=== PATIENT | female | born 1955 | race Caucasian/White ===

== ENCOUNTER 2016-04-07 01:46 | Inpatient (IN) | payer OTHER ==
[~2016-04-07] VITALS: Ht 161.3 cm; Wt 60.2 kg
[~2016-04-07 01:46] MED LIST: ALPR1 PO; AMBI12.5 PO; AMLO2.5T PO; CENTTAB9 PO; ERGO2000 PO; KETO10 PO; LEVO88TA2 PO; SARA10TA; VITA500C PO
[2016-04-07 01:51] VITALS: BP 190/92; PULSE 88; RESP 16; TEMP 98.4; O2SAT 99
--- NOTE | 2016-04-07 02:56 | PD ---
HPI Chief Complaint: Fall Time Seen by Provider: 02:05 Travel History International Travel<30 days: No Contact w/Intl Traveler<30days: No Traveled to known affect area: No History of Present Illness HPI The patient is a 61-year-old female who presents to the emergency department for multiple complaints. The patient states she has a long-standing history of alcohol abuse that was followed by prescription abuse. The patient states she has a history of psychiatric disorders and was on psychiatric medications after she stopped drinking alcohol. The patient then stop taking her psychiatric medications, because she was having severe abdominal pain. The patient states she underwent 6 surgeries within a years time for her abdominal pain, however, continue to have the abdominal pain. The patient states that when she stopped her psychiatric medications, her pain improved. However, the patient states she "lost her mind ", after she stopped taking her psychiatric medications. The patient denies any outright suicidal or homicidal ideation. The patient states she was having a panic attack earlier tonight when she fell the bathroom injuring her right ankle and the right aspect of her head. The patient states there was a loss of consciousness and she saw "stars ". The patient does note a previous history of fracture to the right ankle. PFSH Past Medical History Anxiety: Yes Depression: Yes Heart Rhythm Problems: No Cancer: No Cardiovascular Problems: No High Cholesterol: No Chest Pain: No Congestive Heart Failure: No Diabetes: No Diminished Hearing: No Endocrine: Yes Gastrointestinal Disorders: Yes (MULTIPLE SURGERIES FOR RUPTURED APPY/REPAIR/ PERITONITIS/WOUND VAC) GERD: Yes Genitourinary: No Hepatitis: No Hiatal Hernia: Yes Hypertension: Yes Immune Disorder: No Musculoskeletal: No Neurologic: No Psychiatric: Yes (ANXIETY,DEPRESSION/INSOMNIA) Reproductive: No Respiratory: Yes (ASTHMA-EXERCISE INDUCED) Immunizations Current: Yes Thyroid Disease: Yes (HYPOTHYROIDISM) Ulcer: No Menopausal: Yes : 2 Para: 2 Miscarriage: 0 : 0 Past Surgical History Abdominal Surgery: Yes (ILEOSTOMY/MULTI ABD SURGERIES/WOUND VAC/ROCIO) AICD: No Appendectomy: Yes (with ileostomy for 6 mths trachea 6 mths) Cardiac Surgery: No Cholecystectomy: Yes Ear Surgery: No Endocrine Surgery: No Eye Surgery: No Genitourinary Surgery: No Gynecologic Surgery: No Joint Replacement: No Oral Surgery: Yes (TRACHEOSTOMY) Pacemaker: No Thoracic Surgery: No Other Surgery: Yes Social History Alcohol Use: No Tobacco Use: No Substance Use: No Allergies-Medications (Allergen,Severity, Reaction): Coded Allergies: Ciprofloxacin (Verified Allergy, Severe, FABIENNE'S SYNDROME, 04/07/16) Contrast Media (Verified Allergy, Severe, FABIENNE'S SYNDROME, 04/07/16) Iodine (Verified Allergy, Severe, FABIENNE'S SYNDROME, 04/07/16) Neomycin (Verified Allergy, Severe, FABIENNE'S SYNDROME, 04/07/16) Penicillin (Verified Allergy, Severe, FABIENNE'S SYNDROME, 04/07/16) Sucralfate (Verified Allergy, Severe, Rash, 04/07/16) Vancomycin (Verified Allergy, Severe, FABIENNE'S SYNDROME, 04/07/16) Zofran (Verified Allergy, Severe, HIVES, 04/07/16) Carafate (Verified Allergy, Unknown, 04/07/16) Reported Meds & Prescriptions Reported Meds & Active Scripts Active Reported Ambien CR (Zolpidem Tartrate) 12.5 Mg Tab 12.5 Mg PO HS PRN Centrum (Multiple Vitamins W/ Minerals) 1 Tab 1 Tab PO DAILY Levothyroxine (Levothyroxine Sodium) 88 Mcg Tab 88 Mcg PO DAILY Ergocalciferol 50,000 Unit Cap 50,000 Units PO SUN/THURS Ascorbic Acid 1,000 Mg Tab 1,000 Mg PO DAILY Amlodipine (Amlodipine Besylate) 2.5 Mg Tab 2.5 Mg PO DAILY Review of Systems Except as stated in HPI: all other systems reviewed are Neg General / Constitutional: No: Fever HENT: Positive: Headaches, No: Neck Pain Cardiovascular: No: Chest Pain or Discomfort Respiratory: No: Shortness of Breath Gastrointestinal: No: Nausea, Vomiting, Abdominal Pain Musculoskeletal: Positive: Pain (right ankle pain) Psychiatric: Positive: Depression, Substance Abuse (history of alcohol use), No: Suicidal Ideations, Homicidal Ideation Physical Exam Narrative GENERAL: Awake, alert, somewhat manic appearing 61-year-old female who appears her stated age and is in no acute respiratory distress. SKIN: Warm and dry. HEAD: Small hematoma to the right frontal forehead. EYES: Pupils equal and round. Pupils are 4 mm bilateral and reactive. EOMs are intact. ENT: No nasal bleeding or discharge. Mucous membranes pink and moist. NECK: Trachea midline. No JVD. CARDIOVASCULAR: Regular rate and rhythm. No murmur appreciated. RESPIRATORY: No accessory muscle use. Clear to auscultation. Breath sounds equal bilaterally. GASTROINTESTINAL: Abdomen soft, non-tender, nondistended. Multiple well-healed scars. MUSCULOSKELETAL: Patient has mild pain over the right lateral malleus, but there is no obvious bony deformity. She is able to bear weight and ambulate on the affected foot. NEUROLOGICAL: Awake and alert. No obvious cranial nerve deficits. Motor grossly within normal limits. Normal speech. PSYCHIATRIC: Appears manic. Pressure speech and the patient jumps from one topic to the next. Slightly agitated. Data Data Last Documented VS Vital Signs Date Time Temp Pulse Resp B/P Pulse Ox O2 Delivery O2 Flow Rate FiO2 04/07/16 13:55 81 18 174/83 Room Air 04/07/16 06:15 99 04/07/16 01:51 98.4 Orders Complete Blood Count With Diff (04/07/16 02:43) Comprehensive Metabolic Panel (04/07/16 02:43) Thyroid Stimulating Hormone (04/07/16 02:43) Urinalysis - C+S If Indicated (04/07/16 02:43) Psych Screen (04/07/16 02:43) Drug Screen, Random Urine (04/07/16 02:43) Ct Brain W/O Iv Contrast(Rout) (04/07/16 ) Ankle, Limited (Ap&Lat) (04/07/16 ) Wrist, Limited (Ap&Lat) (04/07/16 ) Diet Regular Basic (04/07/16 Breakfast) Diet Regular Basic (04/07/16 Lunch) Hydroxyzine Pamoate (Vistaril) (04/07/16 13:00) Olanzapine (Zyprexa) (04/07/16 13:00) Admit Order (Ed Use Only) (04/07/16 ) Admit To Inpatient Psych (04/07/16 ) Code Status (04/07/16 15:44) Vital Signs (Adult) CARI.Q12H.E (04/07/16 15:44) Activity Oob Ad Abby (04/07/16 15:44) Level Of Observation (Psych) (04/07/16 15:44) Acetaminophen (Tylenol) (04/07/16 15:45) Magnesium Hydroxide Liq (Milk Of Magnesi (04/07/16 15:45) Al-Mag Hy-Si 40-40-4 Mg/Ml Liq (Mag-Al P (04/07/16 15:45) Basic Metabolic Panel (Bmp) (04/08/16 06:00) Lipid Profile (04/08/16 06:00) Hemoglobin (Hgb) A1c (04/08/16 06:00) Amlodipine (Norvasc) (04/08/16 09:00) Levothyroxine (Synthroid) (04/08/16 06:00) Labs Laboratory Tests Test 04/07/16 04/07/16 03:10 04:00 White Blood Count 8.3 TH/MM3 Red Blood Count 4.42 MIL/MM3 Hemoglobin 13.6 GM/DL Hematocrit 38.5 % Mean Corpuscular Volume 87.2 FL Mean Corpuscular Hemoglobin 30.8 PG Mean Corpuscular Hemoglobin 35.4 % Concent Red Cell Distribution Width 13.4 % Platelet Count 321 TH/MM3 Mean Platelet Volume 7.6 FL Neutrophils (%) (Auto) 41.5 % Lymphocytes (%) (Auto) 48.6 % Monocytes (%) (Auto) 7.1 % Eosinophils (%) (Auto) 1.9 % Basophils (%) (Auto) 0.9 % Neutrophils # (Auto) 3.5 TH/MM3 Lymphocytes # (Auto) 4.0 TH/MM3 Monocytes # (Auto) 0.6 TH/MM3 Eosinophils # (Auto) 0.2 TH/MM3 Basophils # (Auto) 0.1 TH/MM3 CBC Comment DIFF FINAL Differential Comment Sodium Level 141 MEQ/L Potassium Level 3.4 MEQ/L Chloride Level 104 MEQ/L Carbon Dioxide Level 29.2 MEQ/L Anion Gap 8 MEQ/L Blood Urea Nitrogen 15 MG/DL Creatinine 0.85 MG/DL Estimat Glomerular Filtration 68 ML/MIN Rate Random Glucose 101 MG/DL Calcium Level 8.9 MG/DL Total Bilirubin 0.5 MG/DL Aspartate Amino Transf 40 U/L (AST/SGOT) Alanine Aminotransferase 39 U/L (ALT/SGPT) Alkaline Phosphatase 60 U/L Total Protein 7.7 GM/DL Albumin 4.2 GM/DL Thyroid Stimulating Hormone 1.030 uIU/ML 3rd Gen Urine Color LIGHT-YELLOW Urine Turbidity CLEAR Urine pH 7.0 Urine Specific [place] 1.006 Urine Protein NEG mg/dL Urine Glucose (UA) NEG mg/dL Urine Ketones NEG mg/dL Urine Occult Blood NEG Urine Nitrite NEG Urine Bilirubin NEG Urine Urobilinogen LESS THAN 2.0 MG/DL Urine Leukocyte Esterase MOD Urine RBC LESS THAN 1 /hpf Urine WBC 4 /hpf Urine Squamous Epithelial <1 /hpf Cells Microscopic Urinalysis Comment CULT NOT INDICATED Urine Opiates Screen NEG Urine Barbiturates Screen NEG Urine Amphetamines Screen NEG Urine Benzodiazepines Screen NEG Urine Cocaine Screen NEG Urine Cannabinoids Screen NEG MDM Medical Decision Making Medical Screen Exam Complete: Yes Emergency Medical Condition: Yes Medical Record Reviewed: Yes Interpretation(s) Last Impressions Wrist X-Ray 04/07/16 0000 Signed Impressions: Service Date/Time: Thursday, April 07, 2016 03:04 - CONCLUSION: No acute disease. Bonilla Hughes MD Head CT 04/07/16 0000 Signed Impressions: Service Date/Time: Thursday, April 07, 2016 03:11 - CONCLUSION: Normal examination. Bonilla Hughes MD Ankle X-Ray 04/07/16 0000 Signed Impressions: Service Date/Time: Thursday, April 07, 2016 02:57 - CONCLUSION: 1. Plantar calcaneal spur. No fracture. Bonilla Hughes MD Laboratory Tests Test 04/07/16 03:10 White Blood Count 8.3 TH/MM3 Red Blood Count 4.42 MIL/MM3 Hemoglobin 13.6 GM/DL Hematocrit 38.5 % Mean Corpuscular Volume 87.2 FL Mean Corpuscular Hemoglobin 30.8 PG Mean Corpuscular Hemoglobin 35.4 % Concent Red Cell Distribution Width 13.4 % Platelet Count 321 TH/MM3 Mean Platelet Volume 7.6 FL Neutrophils (%) (Auto) 41.5 % Lymphocytes (%) (Auto) 48.6 % Monocytes (%) (Auto) 7.1 % Eosinophils (%) (Auto) 1.9 % Basophils (%) (Auto) 0.9 % Neutrophils # (Auto) 3.5 TH/MM3 Lymphocytes # (Auto) 4.0 TH/MM3 Monocytes # (Auto) 0.6 TH/MM3 Eosinophils # (Auto) 0.2 TH/MM3 Basophils # (Auto) 0.1 TH/MM3 CBC Comment DIFF FINAL Differential Comment Sodium Level 141 MEQ/L Potassium Level 3.4 MEQ/L Chloride Level 104 MEQ/L Carbon Dioxide Level 29.2 MEQ/L Anion Gap 8 MEQ/L Blood Urea Nitrogen 15 MG/DL Random Glucose 101 MG/DL Calcium Level 8.9 MG/DL Aspartate Amino Transf 40 U/L (AST/SGOT) Alanine Aminotransferase 39 U/L (ALT/SGPT) Albumin 4.2 GM/DL Differential Diagnosis Differential diagnosis includes closed head injury, intracranial hemorrhage, right ankle fracture, right ankle contusion, bipolar affective disorder, adjustment reaction, major depression with psychosis. Narrative Course Labs were drawn and sent. CT of the brain was obtained. X-ray of the right ankle was obtained. Psychiatric evaluation was ordered. CT the brain is negative. X-ray of the left wrist and right ankle are unremarkable, no evidence of fracture. Laboratory evaluation is unremarkable. Patient is medically cleared to be evaluated by psychiatry. Disposition as per psych. Diagnosis Primary Impression: Closed head injury Qualified Code: S09.90XA - Closed head injury, initial encounter Additional Impression: Depressive disorder Condition: Stable Daovnte Faustin MD Apr 07, 2016 02:56
[2016-04-07 03:16] LABS: AUTOMATED NEUTROPHIL # 3.5 TH/MM3 (1.8-7.7); BASOPHIL # 0.1 TH/MM3 (0-0.2); BASOPHIL % 0.9 % (0.0-2.0); EOSINOPHIL # 0.2 TH/MM3 (0-0.4); EOSINOPHIL % 1.9 % (0.0-4.0); HEMATOCRIT 38.5 % (35.0-46.0); HEMO FLAGS DIFF FINAL; LYMPH % 48.6 % (9.0-44.0); MEAN CELL VOLUME 87.2 FL (80.0-100.0); MEAN CORPUSCULAR HEMOGLOBIN 30.8 PG (27.0-34.0); MEAN CORPUSCULAR HGB CONC 35.4 % (32.0-36.0); MONO % 7.1 % (0.0-8.0); NEUT % 41.5 % (16.0-70.0); PLATELET COUNT 321 TH/MM3 (150-450); RED BLOOD COUNT 4.42 MIL/MM3 (4.00-5.30); RED CELL DISTRIBUTION WIDTH 13.4 % (11.6-17.2); WHITE BLOOD COUNT 8.3 TH/MM3 (4.0-11.0)
--- NOTE | 2016-04-07 03:19 | RADRPT ---
EXAM DATE/TIME: 04/07/2016 02:57 [facility] COMPARISON: No previous studies available for comparison. INDICATIONS : Trauma, fall. MEDICAL HISTORY : None. SURGICAL HISTORY : None. ENCOUNTER: Initial ACUITY: 1 day PAIN SCORE: 5/10 LOCATION: Right ankle. FINDINGS: Two view examination was performed of the right ankle. The bony structures are in normal alignment. No evidence of fracture, dislocation, or soft tissue swelling. No radiopaque foreign bodies are see n. Bony mineralization is normal. CONCLUSION: 1. Plantar calcaneal spur. No fracture. Bonilla Hughes MD on April 07, 2016 at 3:17 Board Certified Radiologist. This report was verified electronically.
--- NOTE | 2016-04-07 03:19 | RADRPT ---
EXAM DATE/TIME: 04/07/2016 03:04 [facility] COMPARISON: No previous studies available for comparison. INDICATIONS : Trauma, fall. MEDICAL HISTORY : None. SURGICAL HISTORY : None. ENCOUNTER: Initial ACUITY: 1 day PAIN SCORE: 5/10 LOCATION: Left wrist. FINDINGS: Two view examination of the left wrist demonstrates no soft tissue swelling, dislocation, or fracture . The joint spaces are maintained. Bony mineralization is normal. CONCLUSION: No acute disease. Bonilla Hughes MD on April 07, 2016 at 3:17 Board Certified Radiologist. This report was verified electronically.
--- NOTE | 2016-04-07 03:36 | RADRPT ---
EXAM DATE/TIME: 04/07/2016 03:11 [facility] COMPARISON: No previous studies available for comparison. INDICATIONS : Syncope along with fall. RADIATION DOSE: 56.35 CTDIvol (mGy) MEDICAL HISTORY : Hypothyroidism. SURGICAL HISTORY : Cholecystectomy. tracheostomy and ileostomy ENCOUNTER: Initial ACUITY: 1 day PAIN SCALE: 3/10 LOCATION: cranial TECHNIQUE: Multiple contiguous axial images were obtained of the head. Using automated exposure control and adj ustment of the mA and/or kV according to patient size, radiation dose was kept as low as reasonably a chievable to obtain optimal diagnostic quality images. FINDINGS: CEREBRUM: The ventricles are normal for age. No evidence of midline shift, mass lesion, hemorrhage or acute in farction. No extra-axial fluid collections are seen. POSTERIOR FOSSA: The cerebellum and brainstem are intact. The 4th ventricle is midline. The cerebellopontine angle i s unremarkable. EXTRACRANIAL: The visualized portion of the orbits is intact. SKULL: The calvaria is intact. No evidence of skull fracture. CONCLUSION: Normal examination. Bonilla Hughes MD on April 07, 2016 at 3:35 Board Certified Radiologist. This report was verified electronically.
[2016-04-07 03:41] LABS: ALT (GPT) 39 U/L (10-53); ANION GAP 8 MEQ/L (5-15); AST (GOT) 40 U/L (15-37); BICARBONATE 29.2 MEQ/L (21.0-32.0); BLOOD UREA NITROGEN 15 MG/DL (7-18); CHLORIDE 104 MEQ/L (98-107); POTASSIUM 3.4 MEQ/L (3.5-5.1); SODIUM (NA) 141 MEQ/L (136-145)
[2016-04-07] MEDS ORDERED: AMBI12.5 PO (03:44)
[2016-04-07] MEDS ORDERED: LEVO88TA2 PO (03:44)
[2016-04-07] MEDS ORDERED: ERGO1CAP30 PO (03:44)
[2016-04-07] MEDS ORDERED: ASCO10003 PO (03:44)
[2016-04-07] MEDS ORDERED: AMLO2.5T PO (03:44)
[2016-04-07] MEDS ORDERED: MULT-6 PO (03:44)
[2016-04-07 03:50] LABS: ALKALINE PHOSPHATASE 60 U/L (45-117); GLOMERULAR FILTRATION RATE 68 ML/MIN (>89); TOTAL BILIRUBIN ADULT 0.5 MG/DL (0.2-1.0)
[2016-04-07 04:17] LABS: BLOOD, URINE NEG (NEG); GLUCOSE,URINE NEG (NEG); KETONE, URINE NEG (NEG); NITRITE,URINE NEG (NEG); SQUAMOUS EPITHELIAL CELL URINE <1 /hpf (0-5); URINE COLOR LIGHT-YELLOW (YELLW/STRAW)
[2016-04-07 04:25] LABS: AMPHETAMINE, URINE NEG (NEG); BARBITURATES, URINE NEG (NEG); COCAINE, URINE NEG (NEG)
[2016-04-07 04:26] LABS: COMMENT (UR) CULT NOT INDICATED; CULTURE IF INDICATED CULT NOT INDICATED
[2016-04-07 05:45] VITALS: BP 168/84; PULSE 78; RESP 15; O2SAT 98
[2016-04-07 06:15] VITALS: BP 188/95; PULSE 65; RESP 18; O2SAT 99
--- NOTE | 2016-04-07 12:33 | PD ---
History of Present Illness Chief Complaint: psychiatric c complaint Time Seen by Provider: 11:40 Travel History International Travel<30 Days: No Contact w/Intl Traveler<30days: No Known affected area: No Legal Status Legal Status: Voluntary History of Present Illness: History of Present Illness HPI The patient is a 61-year-old female with history of depression, alcohol abuse in remission who presents to the emergency department for multiple complaints including a psychiatric evaluation. As per ed documentation which is included in this report ; " The patient states she has a long-standing history of alcohol abuse that was followed by prescription abuse. The patient states she has a history of psychiatric disorders and was on psychiatric medications after she stopped drinking alcohol. The patient then stop taking her psychiatric medications, because she was having severe abdominal pain. The patient states she underwent 6 surgeries within a years time for her abdominal pain, however, continue to have the abdominal pain. The patient states that when she stopped her psychiatric medications, her pain improved. However, the patient states she "lost her mind ", after she stopped taking her psychiatric medications. The patient denies any outright suicidal or homicidal ideation. Patient is seen in J pod. She initially refused to speak with me and was refusing to go in her room. Staff also informed me that she was naked in the hallway. She agrees to speak with me after explanation of my role. She is awake , alert and oriented female with appropriate hygiene.She is oriented x 4. Her speech is pressured and circumstantial. She insist on telling me her medical history since 2009 when she needed emergency surgery for abdominal pain. In the middle of her our interview she lifts up her gown to show me her abdomen . She is not wearing any underwear or pants and seem unfazed by this inappropriate behavior. Her affect is labile and she is angry and tearful. She keeps her eyes closed during part of the interview. Her complaints include abdominal pain, stopping all her medications 3 weeks ago as she felt they were causing her abdominal pain, not sleeping, mind not being able to stop thinking" . No sucidal or homicdal ideation. Denies any hallucinatory process. Patient is agreeable to inpatient admission at this time. She denies any alcohol use and current toxicology is negative. I spoke with her who reports that for the past week she has not slept except for one day in which she took one Ambien and slept for 13 hours, non stop talking to strangers, hyperactivity with multiple projects at the same time but not completing any of them, easily agitated, decreased attention and poor concentration, overspending. PFSH Past Medical History Anxiety: Yes Depression: Yes Heart Rhythm Problems: No Cancer: No Cardiovascular Problems: No High Cholesterol: No Chest Pain: No Congestive Heart Failure: No Diabetes: No Diminished Hearing: No Endocrine: Yes Gastrointestinal Disorders: Yes (MULTIPLE SURGERIES FOR RUPTURED APPY/REPAIR/ PERITONITIS/WOUND VAC) GERD: Yes Genitourinary: No Hepatitis: No Hiatal Hernia: Yes Hypertension: Yes Immune Disorder: No Musculoskeletal: No Neurologic: No Psychiatric: Yes (ANXIETY,DEPRESSION/INSOMNIA) Reproductive: No Respiratory: Yes (ASTHMA-EXERCISE INDUCED) Immunizations Current: Yes Thyroid Disease: Yes (HYPOTHYROIDISM) Ulcer: No Menopausal: Yes : 2 Para: 2 Miscarriage: 0 : 0 Past Surgical History Abdominal Surgery: Yes (ILEOSTOMY/MULTI ABD SURGERIES/WOUND VAC/ROCIO) AICD: No Appendectomy: Yes (with ileostomy for 6 mths trachea 6 mths) Cardiac Surgery: No Cholecystectomy: Yes Ear Surgery: No Endocrine Surgery: No Eye Surgery: No Genitourinary Surgery: No Gynecologic Surgery: No Joint Replacement: No Oral Surgery: Yes (TRACHEOSTOMY) Pacemaker: No Thoracic Surgery: No Other Surgery: Yes Psychiatric History Psychiatric History Hx Psychiatric Treatment: DENIES ANY INPATIENT OR OUTPATIENT PSYCHIATRY ADMISSIONS. PATIENT STATES SHE RECEIVED RECENT PROZAC PRESCRIPTION IN 12/2015 FROM MADDIE JEFFERY MD. WHO IS A [employer]. Began CELEXA in (2009) WHICH DECREASED HER BOUTS OF CRYING AND DEPRESSION. History of Inpatient Treatment: No Guns or firearms in home: No Social History x 44 years. Lives with her Hx Alcohol Use: No Hx Tobacco Use: No Hx Substance Use: Yes Substance Use Type: Alcohol, Synth Opiates-Pain Pills Hx of Substance Use Treatment: No Family Psychiatric History none reported Allergies-Medications (Allergen,Severity, Reaction): Coded Allergies: Ciprofloxacin (Verified Allergy, Severe, FABIENNE'S SYNDROME, 04/07/16) Contrast Media (Verified Allergy, Severe, FABIENNE'S SYNDROME, 04/07/16) Iodine (Verified Allergy, Severe, FABIENNE'S SYNDROME, 04/07/16) Neomycin (Verified Allergy, Severe, FABIENNE'S SYNDROME, 04/07/16) Penicillin (Verified Allergy, Severe, FABIENNE'S SYNDROME, 04/07/16) Sucralfate (Verified Allergy, Severe, Rash, 04/07/16) Vancomycin (Verified Allergy, Severe, FABIENNE'S SYNDROME, 04/07/16) Zofran (Verified Allergy, Severe, HIVES, 04/07/16) Carafate (Verified Allergy, Unknown, 04/07/16) Reported Meds & Prescriptions Reported Meds & Active Scripts Active Reported Ambien CR (Zolpidem Tartrate) 12.5 Mg Tab 12.5 Mg PO HS PRN Centrum (Multiple Vitamins W/ Minerals) 1 Tab 1 Tab PO DAILY Levothyroxine (Levothyroxine Sodium) 88 Mcg Tab 88 Mcg PO DAILY Ergocalciferol 50,000 Unit Cap 50,000 Units PO SUN/THURS Ascorbic Acid 1,000 Mg Tab 1,000 Mg PO DAILY Amlodipine (Amlodipine Besylate) 2.5 Mg Tab 2.5 Mg PO DAILY Review of Systems Constitutional: COMPLAINS OF: Change in appetite Endocrine: DENIES: Abnorml menstrual pattern, Heat/cold intolerance, Polydipsia , Polyuria, Polyphagia Eyes: DENIES: Blurred vision, Diplopia, Eye inflammation, Eye pain, Vision loss , Photosensitivity, Double Vision Ears, nose, mouth, throat: DENIES: Tinnitus, Hearing loss, Vertigo, Nasal discharge, Oral lesions, Throat pain, Hoarseness, Ear Pain, Running Nose, Epistaxis, Sinus Pain, Toothache, Odynophagia Respiratory: DENIES: Apneas, Cough, Snoring, Wheezing, Hemoptysis, Sputum production, Shortness of breath Cardiovascular: DENIES: Chest pain, Palpitations, Syncope, Dyspnea on Exertion , PND, Lower Extremity Edema, Orthopnea, Claudication Gastrointestinal: COMPLAINS OF: Abdominal pain Genitourinary: DENIES: Abnormal vaginal bleeding, Dysmenorrhea, Dyspareunia, Sexual dysfunction, Urinary frequency, Urinary incontinence, Urgency, Hematuria , Dysuria, Nocturia, Vaginal discharge Musculoskeletal: DENIES: Joint pain, Muscle aches, Stiffness, Joint Swelling, Back pain, Neck pain Integumentary: DENIES: Abnormal pigmentation, Pruritus, Rash, Nail changes, Breast masses, Breast skin changes, Nipple discharge Hematologic/lymphatic: DENIES: Bruising, Lymphadenopathy Neurologic: DENIES: Abnormal gait, Headache, Localized weakness, Paresthesias, Seizures, Speech Problems, Tremor, Poor Balance Psychiatric: COMPLAINS OF: Mood changes, Depression, Agitation Exam Alert: Yes [place]: Person (ox4) Mood: Other (labile) Speech: Clear, Fast, Tangential Eye Contact: Normal, None Memory Intact: Comment (no gross abnormality) Hallucinations: Other (negative) Delusions: No Suicidal: Ideation (deneis any) Homicidal: Ideation (deneis any) Insight/Judgement poor. poor MDM Medical Decision Making Medical Record Reviewed: Yes Assessment/Plan 61 year old female with previous hx of depression and alcohol and pain medication abuse who is on a voluntary basis. Patient appears to be hypomanic with rapid speech, decreased sleep, irritability, impulsivity, impaired sleep. She stopped her medications including Xanax 3 weeks ago. At this time the patient meets criteria for inpatient psychiatric treatment for further observation, stabilization and medication adjustment. Orders Complete Blood Count With Diff (04/07/16 02:43) Comprehensive Metabolic Panel (04/07/16 02:43) Thyroid Stimulating Hormone (04/07/16 02:43) Urinalysis - C+S If Indicated (04/07/16 02:43) Psych Screen (04/07/16 02:43) Drug Screen, Random Urine (04/07/16 02:43) Ct Brain W/O Iv Contrast(Rout) (04/07/16 ) Ankle, Limited (Ap&Lat) (04/07/16 ) Wrist, Limited (Ap&Lat) (04/07/16 ) Diet Regular Basic (04/07/16 Breakfast) Diet Regular Basic (04/07/16 Lunch) Hydroxyzine Pamoate (Vistaril) (04/07/16 13:00) Olanzapine (Zyprexa) (04/07/16 13:00) Results Vital Signs Date Time Temp Pulse Resp B/P Pulse Ox O2 Delivery O2 Flow Rate FiO2 04/07/16 06:15 65 18 188/95 99 Room Air 04/07/16 05:45 78 15 168/84 98 Room Air 04/07/16 03:09 85 15 99 Room Air 04/07/16 01:51 98.4 88 16 190/92 99 Room Air Laboratory Tests Test 04/07/16 04/07/16 03:10 04:00 White Blood Count 8.3 Red Blood Count 4.42 Hemoglobin 13.6 Hematocrit 38.5 Mean Corpuscular Volume 87.2 Mean Corpuscular Hemoglobin 30.8 Mean Corpuscular Hemoglobin 35.4 Concent Red Cell Distribution Width 13.4 Platelet Count 321 Mean Platelet Volume 7.6 Neutrophils (%) (Auto) 41.5 Lymphocytes (%) (Auto) 48.6 Monocytes (%) (Auto) 7.1 Eosinophils (%) (Auto) 1.9 Basophils (%) (Auto) 0.9 Neutrophils # (Auto) 3.5 Lymphocytes # (Auto) 4.0 Monocytes # (Auto) 0.6 Eosinophils # (Auto) 0.2 Basophils # (Auto) 0.1 CBC Comment DIFF FINAL Differential Comment Sodium Level 141 Potassium Level 3.4 Chloride Level 104 Carbon Dioxide Level 29.2 Anion Gap 8 Blood Urea Nitrogen 15 Creatinine 0.85 Estimat Glomerular Filtration 68 Rate Random Glucose 101 Calcium Level 8.9 Total Bilirubin 0.5 Aspartate Amino Transf 40 (AST/SGOT) Alanine Aminotransferase 39 (ALT/SGPT) Alkaline Phosphatase 60 Total Protein 7.7 Albumin 4.2 Thyroid Stimulating Hormone 1.030 3rd Gen Urine Color LIGHT-YELLOW Urine Turbidity CLEAR Urine pH 7.0 Urine Specific [place] 1.006 Urine Protein NEG Urine Glucose (UA) NEG Urine Ketones NEG Urine Occult Blood NEG Urine Nitrite NEG Urine Bilirubin NEG Urine Urobilinogen LESS THAN 2.0 Urine Leukocyte Esterase MOD Urine RBC LESS THAN 1 Urine WBC 4 Urine Squamous Epithelial <1 Cells Microscopic Urinalysis Comment CULT NOT INDICATED Urine Opiates Screen NEG Urine Barbiturates Screen NEG Urine Amphetamines Screen NEG Urine Benzodiazepines Screen NEG Urine Cocaine Screen NEG Urine Cannabinoids Screen NEG Diagnosis Primary Impression: mdd, recurrent Additional Impression: Hypomania Admitting Information Admitting Physician Requests: Admit (Dr. Ingram) Condition: Stable Problem Qualifiers Marissa Skinner Apr 07, 2016 12:33
[2016-04-07] MEDS ORDERED: OLANZapine 5 MG TAB PO ONE (13:00)
[2016-04-07 13:55] VITALS: BP 174/83; PULSE 81; RESP 18
[2016-04-07] MEDS ORDERED: MAGNESIUM HYDROXIDE SUSP 30 ML CUP PO PRN (15:45)
[2016-04-07] MEDS ORDERED: ALUMINUM/MAGNESIUM/SIMETH 30 ML CUP PO PRN (15:45)
[2016-04-07] MEDS ORDERED: PILL SPLITTER OTHER PRN (16:00)
[2016-04-07 19:00] VITALS: BP 163/78; PULSE 69; RESP 18
[2016-04-07 20:15] VITALS: BP 173/81; PULSE 61; RESP 20; TEMP 97.5; O2SAT 100
[2016-04-08] MEDS: ACETAMINOPHEN 325 MG TAB PO PRN ×5 (00:25→20:09)
[2016-04-08 05:19] VITALS: BP 178/72; PULSE 55; RESP 18; TEMP 97.4; O2SAT 98
[2016-04-08] MEDS: LEVOTHYROXINE SODIUM 88 MCG TAB PO SCH (05:51)
[2016-04-08 07:51] LABS: ANION GAP 10 MEQ/L (5-15); BICARBONATE 28.8 MEQ/L (21.0-32.0); BLOOD UREA NITROGEN 13 MG/DL (7-18); CHLORIDE 103 MEQ/L (98-107); GLOMERULAR FILTRATION RATE 68 ML/MIN (>89); SODIUM (NA) 142 MEQ/L (136-145)
[2016-04-08 08:17] LABS: HDL CHOLESTEROL 82.3 MG/DL (40.0-60.0); LDL CHOLESTEROL 93 MG/DL (0-99)
[2016-04-08 08:44] LABS: POTASSIUM 2.7 MEQ/L (3.5-5.1)
[2016-04-08] MEDS ORDERED: amLODIPine BESYLATE 5 MG TAB PO SCH (09:00)
[2016-04-08] MEDS ORDERED: PNEUMOCOCCAL POLYVALENT INJ 25 MCG/0.5 ML SYR IM ONE (09:00)
[2016-04-08] MEDS ORDERED: INFLUENZA VIRUS VACCINE (QUADRIVALENT) 0.5 ML SYR IM ONE (10:00)
--- NOTE | 2016-04-08 14:00 | HHI.HP ---
Provisional Diagnosis Admission Date Apr 07, 2016 at 15:47 [place] I. Bipolar disorder, type I, manic episode without psychosis, r/o medical-induced mika [place] II. Deferred, [place] III. HTN, hypothyroidism [place] IV. Poor insight [place] V. 35 Certification of Person's Competence To Provide Express and Informed Consent I have personally examined Carol Mon , a person being served at [facility] on, Apr 08, 2016 13:29. Express and informed consent means consent voluntarily given in writing, by a competent person, after sufficient explanation and disclosure of the subject matter involved to enable the person to make a knowing and willful decision without any element of force, fraud, deceit, duress, or other form of constraint or coercion. This person is 18 years of age or older, is not now known to be incompetent to consent to treatment with a guardian advocate, and does not have a health care surrogate or proxy currently making medical treatment decisions. I have found this person to be one of the following: [] Competent to provide express and informed consent, as defined above, for voluntary admission to this facility and is competent to provide express and informed consent for treatment. He/she has the consistent capacity to make well reasoned, willful, and knowing decisions concerning his or her medical or mental health treatment. The person fully and consistently understands the purpose of the admission for examination/placement and is fully capable of personally exercising all rights assured under [place] [] Incompetent to provide express and informed consent to voluntary admission, and this is incompetent to provide express and informed consent to treatment. The person must be transferred to involuntary status and a petition for a guardian advocate filed with the Circuit Court. [X] Refusing to provide express and informed consent to voluntary admission but is competent to provide express and informed consent for treatment. The person must be discharged or transferred to involuntary status. Form shall be completed within 24 hours of a person's arrival at the receiving facility and filed in the clinical record of each person: 1. Admitted on a voluntary basis 2. Permitted to provide express and informed consent to his/her own treatment 3. Allowed to transfer from involuntary to voluntary status 4. Prior to permitting a person to consent to his or her own treatment after having been previously found incompetent to consent to treatment. History of Present Illness Capacity: Lacks Capacity HPI Documentation in the ER, by Ms. Skinner 04/07/2016: "The patient is a 61-year- old female with history of depression, alcohol abuse in remission who presents to the emergency department for multiple complaints including a psychiatric evaluation. As per ed documentation which is included in this report ; " The patient states she has a long-standing history of alcohol abuse that was followed by prescription abuse. The patient states she has a history of psychiatric disorders and was on psychiatric medications after she stopped drinking alcohol. The patient then stop taking her psychiatric medications, because she was having severe abdominal pain. The patient states she underwent 6 surgeries within a years time for her abdominal pain, however, continue to have the abdominal pain. The patient states that when she stopped her psychiatric medications, her pain improved. However, the patient states she "lost her mind ", after she stopped taking her psychiatric medications. The patient denies any outright suicidal or homicidal ideation. Patient is seen in J pod. She initially refused to speak with me and was refusing to go in her room. Staff also informed me that she was naked in the hallway. She agrees to speak with me after explanation of my role. She is awake, alert and oriented female with appropriate hygiene.She is oriented x 4. Her speech is pressured and circumstantial. She insist on telling me her medical history since 2009 when she needed emergency surgery for abdominal pain. In the middle of her our interview she lifts up her gown to show me her abdomen . She is not wearing any underwear or pants and seem unfazed by this inappropriate behavior. Her affect is labile and she is angry and tearful. She keeps her eyes closed during part of the interview. Her complaints include abdominal pain, stopping all her medications 3 weeks ago as she felt they were causing her abdominal pain, not sleeping, mind not being able to stop thinking". No sucidal or homicdal ideation. Denies any hallucinatory process. Patient is agreeable to inpatient admission at this time. She denies any alcohol use and current toxicology is negative. I spoke with her who reports that for the past week she has not slept except for one day in which she took one Ambien and slept for 13 hours, non stop talking to strangers, hyperactivity with multiple projects at the same time but not completing any of them, easily agitated, decreased attention and poor concentration, overspending." 04/08/2016: The patient is a 61 years old woman, domicile with her in [place], retired, with psychiatric history of depression and anxiety, no psychiatric hospitalizations, no previous suicidal attempts, she was treated with Prozac 20 mg, buspirone 10 mg 3 times a day, and Xanax 0.5 mg twice a day prescribed by PCP, but she stopped suddenly these medication about 2 weeks ago, she also has history of alcohol use disorder, now in sustained full remission, she has medical history of hypothyroidism, hypertension, and multiple abdominal surgeries. She was brought to the ER by her family for a psychiatric evaluation due to new onset bizarre and disorganized behavior at home. 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 Patient seems to be very hyperactive, talkative, with elevated mood, but at the same time she is redirectable. Patient does not have an insight of the reason of her hospitalization, she says she is here because she stopped taking her medications for anxiety and due to her past abdominal surgery. Patient says that she was taking BuSpar, Paxil and Xanax, but she stopped taking them "because they were not allowing me to enjoy my life". Patient denies depressive symptoms, she reports increased energy, decreased need to sleep, increased need to talk, she says she feels "a current a positive energy insight me", she denies suicidal and homicidal ideation, she denies visual and auditory hallucinations. No acute paranoia or delusions are observed. Even though patient is talkative, she is no pressure. Loosening of associations, disorganized speech, tangentiality are present, but patient is redirectable and able to answer appropriately most of our questions. At the moment of this evaluation no delusions, paranoia, internal stimulation, increased self esteem are observed or reported. Patient is fully oriented 3, decreased attention span is present, but no gross cognitive impairment. Patient denies the use of illicit drugs and alcohol. Collateral information from her , Kenneth Littlejohn, , was obtained. He added that the patient has been not herself police in the last 2 weeks. He relates this changes with the sudden stop of psychotropics. For the last 2 weeks the patient has been basically no sleeping, talking nonsense, making inappropriate sexual comments and having inappropriate behavior, she has been hyperverbal, spending money in unnecessary things. He explains that this is the first time that he sees this can of behavior in his . Review of Systems Constitutional: DENIES: Diaphoretic episodes, Fatigue, Fever, Weight gain, Weight loss, Chills, Dizziness, Change in appetite, Night Sweats Endocrine: DENIES: Abnorml menstrual pattern, Heat/cold intolerance, Polydipsia , Polyuria, Polyphagia Eyes: DENIES: Blurred vision, Diplopia, Eye inflammation, Eye pain, Vision loss , Photosensitivity, Double Vision Ears, nose, mouth, throat: DENIES: Tinnitus, Hearing loss, Vertigo, Nasal discharge, Oral lesions, Throat pain, Hoarseness, Ear Pain, Running Nose, Epistaxis, Sinus Pain, Toothache, Odynophagia Gastrointestinal: DENIES: Abdominal pain, Black stools, Bloody stools, Constipation, Diarrhea, Nausea, Vomiting, Difficulty Swallowing, Anorexia Genitourinary: DENIES: Abnormal vaginal bleeding, Dysmenorrhea, Dyspareunia, Sexual dysfunction, Urinary frequency, Urinary incontinence, Urgency, Hematuria , Dysuria, Nocturia, Vaginal discharge Musculoskeletal: DENIES: Joint pain, Muscle aches, Stiffness, Joint Swelling, Back pain, Neck pain Immunologic/allergic: DENIES: Eczema, Urticaria Neurologic: DENIES: Abnormal gait, Headache, Localized weakness, Paresthesias, Seizures, Speech Problems, Tremor, Poor Balance Psychiatric: COMPLAINS OF: Mood changes, Agitation, DENIES: Anxiety, Confusion , Depression, Hallucinations, Suicidal Ideation, Homicidal Ideation, Delusions Past Psych History Violence risk - self (6 mos) Elevated Substance Abuse History Drugs/Alcohol past 12 months Patient has alcohol use disorder, in full sustained remission, she denies the use of alcohol and illicit drugs in the last days. Past Family Social History Coded Allergies: Ciprofloxacin (Verified Allergy, Severe, FABIENNE'S SYNDROME, 04/07/16) Contrast Media (Verified Allergy, Severe, FABIENNE'S SYNDROME, 04/07/16) Iodine (Verified Allergy, Severe, FABIENNE'S SYNDROME, 04/07/16) Neomycin (Verified Allergy, Severe, FABEINNE'S SYNDROME, 04/07/16) Penicillin (Verified Allergy, Severe, FABIENNE'S SYNDROME, 04/07/16) Sucralfate (Verified Allergy, Severe, Rash, 04/07/16) Vancomycin (Verified Allergy, Severe, FABIENNE'S SYNDROME, 04/07/16) Zofran (Verified Allergy, Severe, HIVES, 04/07/16) Carafate (Verified Allergy, Unknown, 04/07/16) Reported Medications Zolpidem ER (Ambien CR)12.5 Mg Tab12.5 Mg PO HS PRN (INSOMNIA) Ref 0 04/07/16 Multiple Vitamins W/ Minerals (Centrum)1 Tab1 Tab PO DAILY Ref 0 04/07/16 Levothyroxine 88 Mcg Tab88 Mcg PO DAILY #30 TAB Ref 0 04/07/16 Ergocalciferol 50,000 Unit Cap50,000 Units PO SUN/THURS #30 CAP Ref 0 04/07/16 Ascorbic Acid 1,000 Mg Tab1,000 Mg PO DAILY #30 TAB Ref 0 04/07/16 Amlodipine 2.5 Mg Tab2.5 Mg PO DAILY #30 TAB Ref 0 04/07/16 Current Medications Medications (Trade) Dose Ordered Sig/Carisa Route Start Time Stop Time Status Last Admin (Tylenol) 650 mg Q4H PRN PO 04/07/16 15:45 04/08/16 10:24 (Milk Of Magnesia Liq) 30 ml DAILY PRN PO 04/07/16 15:45 (Mag-Al Plus Susp Liq) 30 ml Q6H PRN PO 04/07/16 15:45 (Norvasc) 2.5 mg DAILY PO 04/08/16 09:00 04/08/16 08:13 (Synthroid) 88 mcg DAILY@06 PO 04/08/16 06:00 04/08/16 05:51 (Pill Splitter) 1 ea UNSCH PRN OTHER 04/07/16 16:00 Family History Her brother suffer of depression and committed suicide, her 2 daughters suffers of depression Social History Patient was born and raised in [facility], she has been living in [place] for 3 years, she lives with her in [place], she is unemployed, retired, her highest level of education is a college degree. Physical Exam Vital Signs Vital Signs Date Time Temp Pulse Resp B/P Pulse Ox O2 Delivery O2 Flow Rate FiO2 04/08/16 05:19 97.4 55 18 178/72 98 04/07/16 19:00 Room Air Mental Status Examination Appearance woman, age appearing, wearing red short pants and red shirt, hyperactive, irritable, but calm and cooperative Speech: Fast Orientation: x3 Memory: Unremarkable Thought Process: Loose Association, Tangential Thought Content: Bizarre thinking Hallucination Type: None Attention and Concentration: Abnormal Suicidal Ideation: No Previous Suicide Attempts: No Homicidal Ideation: No Previous Homicide Attempts: No Judgement: Poor Affect: Irritable, Other (elevated) Mood: Irritable, Manic Motor Activity: Normal gait Assessment & Plan Problem List: (1) Hypomania ICD Code: F30.8 (2) Bipolar disorder, curr episode manic w/o psychotic features, moderate Assessment & Plan: The patient is a 61 year-old woman with psychiatric history of depression and anxiety, no psychiatric hospitalizations, no previous suicidal attempts, she was treated with Prozac 20 mg, buspirone 10 mg 3 times a day, and Xanax 0.5 mg twice a day prescribed by PCP, but she stopped suddenly these medication about 2 weeks ago, she also has history of alcohol use disorder, now in sustained full remission, she has medical history of hypothyroidism, hypertension, and multiple abdominal surgeries. She was brought to the ER by her family for a psychiatric evaluation due to new onset bizarre and disorganized behavior at home. On psychiatric evaluation today patient is found acutely manic, hyperactive, verborrheic, with decreases attention span, disorganized, tangential, goal-directed. As per collateral information from her in the last 2 weeks patient has been acting bizarre and in an unusual and inappropriate, not sleeping, talking a lot, spending money in unnecessary things, illogical at times. Patient denies suicidal and homicidal ideation, patient denies visual and auditory hallucinations. At this moment the patient does not seem to be delusional or paranoid, however due to the level of disorganization and unpredictable behavior patient may represent an acute danger to self and others and needs psychiatric hospitalization for stabilization. Her is in a complete agreement with this plan. We will start Depakote 250 mg for mood stabilization , also will start olanzapine 2.5 mg to help with manic symptoms. Labs reviewed noted hypokalemia, which consult hospitalist for this condition. We consult psychiatry for second opinion. coke worker intervention for psychosocial assessment and psychotherapy. Monitor closely behavior and mood. Extensive psychoeducation, support provided. ICD Code: F31.12 Assessment & Plan Estimated LOS: Gene Ingram MD Apr 08, 2016 14:00
[2016-04-08] MEDS: OLANZapine 2.5 MG TAB PO SCH ×2 (14:05→20:09)
[2016-04-08] MEDS: DIVALPROEX SODIUM DELAYED RELEASE 250 MG TAB PO SCH ×2 (14:05→20:09)
[2016-04-08] MEDS: POTASSIUM CHLORIDE 20 MEQ CONTROLLED RELEASE TAB PO SCH ×2 (14:05→19:21)
--- NOTE | 2016-04-08 16:51 | PD.CONS ---
HPI Service [facility] Consult Requested By Psychiatric services Reason for Consult Hypokalemia Primary Care Physician Non-Staff Diagnoses: History of Present Illness This a 61-year-old female patient with a past medical history which includes bipolar, hypothyroidism, hypertension, EtOH and prescription drug abuse, asthma , ruptured appendix tracheostomy and ileostomy. Patient is seen at inpatient psychiatric center is currently tangential in speech and manic and appearance. Information gathered from patient as well as prior computerized charting. We' ve been consulted for assistance with hypoglycemia. Potassium level this morning 2.7 magnesium level 2.1. Patient reports she has lost 32 pounds over the past 6 months with aggressive speed biking and, "only eating small portions of very healthy foods." Patient denies shortness of breath chest pain nausea vomiting diarrhea constipation fevers or chills. Review of Systems Except as stated in HPI: all other systems reviewed are Neg Past Family Social History Allergies: Coded Allergies: Ciprofloxacin (Verified Allergy, Severe, FABIENNE'S SYNDROME, 04/07/16) Contrast Media (Verified Allergy, Severe, FABIENNE'S SYNDROME, 04/07/16) Iodine (Verified Allergy, Severe, FABIENNE'S SYNDROME, 04/07/16) Neomycin (Verified Allergy, Severe, FABIENNE'S SYNDROME, 04/07/16) Penicillin (Verified Allergy, Severe, FABIENNE'S SYNDROME, 04/07/16) Sucralfate (Verified Allergy, Severe, Rash, 04/07/16) Vancomycin (Verified Allergy, Severe, FABIENNE'S SYNDROME, 04/07/16) Zofran (Verified Allergy, Severe, HIVES, 04/07/16) Carafate (Verified Allergy, Unknown, 04/07/16) Past Medical History bipolar, hypothyroidism, hypertension, EtOH and prescription drug abuse, asthma , ruptured appendix tracheostomy and ileostomy Past Surgical History Appendectomy, cholecystectomy, ileostomy, tracheostomy, resection of, "intestines" Reported Medications Ambien CR (Zolpidem Tartrate) 12.5 Mg Tab 12.5 Mg PO HS PRN Centrum (Multiple Vitamins W/ Minerals) 1 Tab 1 Tab PO DAILY Levothyroxine (Levothyroxine Sodium) 88 Mcg Tab 88 Mcg PO DAILY Ergocalciferol 50,000 Unit Cap 50,000 Units PO SUN/THURS Ascorbic Acid 1,000 Mg Tab 1,000 Mg PO DAILY Amlodipine (Amlodipine Besylate) 2.5 Mg Tab 2.5 Mg PO DAILY Active Ordered Medications Current Medications Medications (Trade) Dose Ordered Sig/Carisa Route Start Time Stop Time Status Last Admin (Tylenol) 650 mg Q4H PRN PO 04/07/16 15:45 04/08/16 14:06 (Milk Of Magnesia Liq) 30 ml DAILY PRN PO 04/07/16 15:45 (Mag-Al Plus Susp Liq) 30 ml Q6H PRN PO 04/07/16 15:45 (Norvasc) 2.5 mg DAILY PO 04/08/16 09:00 04/08/16 08:13 (Synthroid) 88 mcg DAILY@06 PO 04/08/16 06:00 04/08/16 05:51 (Pill Splitter) 1 ea UNSCH PRN OTHER 04/07/16 16:00 (Depakote Dr) 250 mg Q12HR PO 04/08/16 13:30 04/08/16 14:05 (ZyPREXA) 2.5 mg Q12HR PO 04/08/16 13:30 04/08/16 14:05 (KCl) 40 meq TID PO 04/08/16 15:00 04/09/16 14:59 04/08/16 14:05 Family History Anxiety/depression Brother committed suicide Social History denies EtOH use tobacco use or illicit drug use Physical Exam Vital Signs Vital Signs Date Time Temp Pulse Resp B/P Pulse Ox O2 Delivery O2 Flow Rate FiO2 04/08/16 05:19 97.4 55 18 178/72 98 04/07/16 20:15 97.5 61 20 173/81 100 04/07/16 19:00 69 18 163/78 Room Air Physical Exam GENERAL: This is a well-nourished, well-developed patient CARDIOVASCULAR: Regular rate and rhythm without murmurs, gallops, or rubs. RESPIRATORY: Clear to auscultation. Breath sounds equal bilaterally. No wheezes , rales, or rhonchi. GASTROINTESTINAL: Abdomen soft, non-tender, nondistended. Normal active bowel sounds MUSCULOSKELETAL: Extremities without clubbing, cyanosis, or edema. NEURO: Awake and alert. Moves all ext x4 Laboratory Laboratory Tests Test 04/08/16 06:57 Sodium Level 142 Potassium Level 2.7 Chloride Level 103 Carbon Dioxide Level 28.8 Anion Gap 10 Blood Urea Nitrogen 13 Creatinine 0.84 Estimat Glomerular Filtration 68 Rate Random Glucose 105 Calcium Level 9.2 Magnesium Level 2.1 Triglycerides Level 124 Cholesterol Level 200 LDL Cholesterol 93 HDL Cholesterol 82.3 Cholesterol/HDL Ratio 2.43 Result Diagram: 04/12/16 1119 04/12/16 1141 Assessment and Plan Assessment and Plan This a 61-year-old female patient with a past medical history which includes bipolar, hypothyroidism, hypertension, EtOH and prescription drug abuse, asthma , ruptured appendix tracheostomy and ileostomy. Patient is seen at inpatient psychiatric center is currently tangential in speech and manic and appearance. Information gathered from patient as well as prior computerized charting. We' ve been consulted for assistance with hypoglycemia. Potassium level this morning 2.7 magnesium level 2.1. Patient reports she has lost 32 pounds over the past 6 months with aggressive speed biking and, "only eating small portions of very healthy foods." Patient denies shortness of breath chest pain nausea vomiting diarrhea constipation fevers or chills. Hypokalemia 2.7 with magnesium of 2.1 40 meq potassium chloride 3 times a day times one day Recheck BMP in a.m. Encouraged patient to increase by mouth intake of potassium rich foods Hypothyroidism continue home Synthroid TSH 1.030 Hypertension blood pressure remains elevated Will increase Norvasc to 5 mg daily Bipolar management per psychiatric team DVT prophylaxis patient is ambulatory and low risk Discussed plan of care with patient and nursing Written by Anna Guerra, acting as scribe for Dr. Merlos on 04/08/16 at 16:51. Attending Statement The documentation accurately reflects the work performed [id number] by me on at 16:51. Anna Guerra Apr 08, 2016 16:51 Jose Bishop MD Apr 13, 2016 22:47
[2016-04-09 05:37] VITALS: BP 151/81; PULSE 75; RESP 16; TEMP 97.1; O2SAT 98
[2016-04-09] MEDS: LEVOTHYROXINE SODIUM 88 MCG TAB PO SCH (06:10)
[2016-04-09] MEDS: amLODIPine BESYLATE 5 MG TAB PO SCH (08:14)
[2016-04-09] MEDS: POTASSIUM CHLORIDE 20 MEQ CONTROLLED RELEASE TAB PO SCH ×2 (08:14→12:44)
[2016-04-09] MEDS: DIVALPROEX SODIUM DELAYED RELEASE 250 MG TAB PO SCH ×2 (08:15→20:06)
[2016-04-09] MEDS: OLANZapine 2.5 MG TAB PO SCH ×2 (08:15→20:06)
[2016-04-09 10:22] LABS: HEMOGLOBIN A1a 1.2 %; HEMOGLOBIN A1b 0.9 %; HEMOGLOBIN Ao 86.4 %; HEMOGLOBIN F 0.7 %; HEMOGLOBIN P3 3.3 %
[2016-04-09] MEDS: ACETAMINOPHEN 325 MG TAB PO PRN ×2 (11:12→20:07)
[2016-04-09 12:45] LABS: BICARBONATE 28.6 MEQ/L (21.0-32.0)
--- NOTE | 2016-04-09 15:20 | HHI.PYPN ---
Subjective Remarks Patient was seen and case discussed with nursing. The service request for second opinion for Dr. Ingram. Patient's potassium is improved and is now 4.0. She has a standing order for potassium continues to be followed by medicine. Patient continues to be elated, expansive, with increased energy, distractibility and flight of ideas. She denies suicidal ideations thought intent or plan. She denies auditory visual hallucinations. No delusions elicited Objective Alert: Yes [place]: Person (ox4), Place Mood: Happy Affect: Manic Memory Intact: Comment (no gross abnormality) Hallucinations: Other (negative) Delusions: No Delusion Type: Other Suicidal: Ideation (deneis any) Homicidal: Ideation (deneis any) Insight/Judgement Poor Labs Test 04/09/16 11:38 Sodium Level 142 MEQ/L Potassium Level 4.0 MEQ/L Chloride Level 104 MEQ/L Carbon Dioxide Level 28.6 MEQ/L Anion Gap 9 MEQ/L Blood Urea Nitrogen 13 MG/DL Creatinine 0.90 MG/DL Estimat Glomerular Filtration 63 ML/MIN Rate Random Glucose 96 MG/DL Calcium Level 9.6 MG/DL Vitals/IOs Vital Signs Date Time Temp Pulse Resp B/P Pulse Ox O2 Delivery O2 Flow Rate FiO2 04/09/16 05:37 97.1 75 16 151/81 98 04/07/16 19:00 Room Air Assessment & Plan Problem List: (1) Hypomania ICD Code: F30.8 (2) Bipolar disorder, curr episode manic w/o psychotic features, moderate ICD Code: F31.12 Assessment & Plan Agree with first opinion to continue petition. Criteria include acute mika Justification for Cont. Inpt. Patient will decompensate in a less restrictive setting Jonel Horan DO Apr 09, 2016 15:20
[2016-04-09 18:18] VITALS: BP 156/67; PULSE 84; RESP 18; TEMP 97.6; O2SAT 99
[2016-04-10 06:02] VITALS: BP 161/75; PULSE 76; RESP 16; TEMP 95.8
[2016-04-10] MEDS: LEVOTHYROXINE SODIUM 88 MCG TAB PO SCH (06:14)
[2016-04-10] MEDS: ACETAMINOPHEN 325 MG TAB PO PRN ×3 (07:40→22:02)
[2016-04-10] MEDS: OLANZapine 2.5 MG TAB PO SCH ×2 (08:28→21:05)
[2016-04-10] MEDS: DIVALPROEX SODIUM DELAYED RELEASE 250 MG TAB PO SCH ×2 (08:28→21:05)
[2016-04-10] MEDS: amLODIPine BESYLATE 5 MG TAB PO SCH (08:28)
--- NOTE | 2016-04-10 14:04 | HHI.PYPN ---
Subjective Remarks Patient continues to be in a hypomanic to manic mood with expansive thoughts and limited insight. She has an increase in energy and goal-directed activity as well. Review of Systems Except as stated in HPI: all other systems reviewed are Neg Objective Alert: Yes [place]: Person (ox4), Place Mood: Happy Affect: Manic Memory Intact: Comment (no gross abnormality) Hallucinations: Other (negative) Delusions: No Delusion Type: Other Suicidal: Ideation (deneis any) Homicidal: Ideation (deneis any) Insight/Judgement Impaired but adequate at this time. Vitals/IOs Vital Signs Date Time Temp Pulse Resp B/P Pulse Ox O2 Delivery O2 Flow Rate FiO2 04/10/16 06:02 95.8 76 16 161/75 04/09/16 18:18 99 04/07/16 19:00 Room Air Assessment & Plan Problem List: (1) Hypomania ICD Code: F30.8 (2) Bipolar disorder, curr episode manic w/o psychotic features, moderate ICD Code: F31.12 Assessment & Plan Estimated LOS: days we will continue to try and stabilize the patient's mood with medication management. She is participating in groups and therapies but remains resistant to talk therapy. Justification for Cont. Inpt. Unable to care for herself outside of the hospital and was herself in risky situations. Parker Webb MD Apr 10, 2016 14:04
[2016-04-10 15:49] VITALS: BP 155/70
[2016-04-10 22:00] VITALS: BP 137/76; PULSE 111; RESP 18; TEMP 97.7; O2SAT 96
[2016-04-11 04:00] VITALS: BP 150/76; PULSE 73; RESP 16; TEMP 97.6; O2SAT 97
[2016-04-11] MEDS: LEVOTHYROXINE SODIUM 88 MCG TAB PO SCH (06:12)
--- NOTE | 2016-04-11 11:03 | HHI.PYPN ---
Subjective Remarks Patient continues to present highly agitated, expansive and demanding to leave. She attempted to elope yesterday afternoon late, requiring medication management. Her insight and judgment remained markedly impaired and she does not see the need for treatment. Review of Systems ROS Limitations: Clinical Condition Except as stated in HPI: all other systems reviewed are Neg Objective Alert: Yes [place]: Person (ox4), Place Mood: Agitated Affect: Manic Memory Intact: Comment (no gross abnormality) Hallucinations: Other (negative) Delusions: No Delusion Type: Other Suicidal: Ideation (deneis any) Homicidal: Ideation (deneis any) Insight/Judgement Markedly impaired insight and markedly impaired judgment. Vitals/IOs Vital Signs Date Time Temp Pulse Resp B/P Pulse Ox O2 Delivery O2 Flow Rate FiO2 04/11/16 04:00 97.6 73 16 150/76 97 04/07/16 19:00 Room Air Assessment & Plan Problem List: (1) Hypomania ICD Code: F30.8 (2) Bipolar disorder, curr episode manic w/o psychotic features, moderate ICD Code: F31.12 Assessment & Plan Estimated LOS: days patient has made minimal progress in treatment. This physician plans to titrate her mood stabilizing medications upward. We will attempt to engage her in more appropriate therapy and behavior. It is anticipated she will still be in the hospital for 3-5 more days. Justification for Cont. Inpt. Patient is unable to care for herself and her is unable to care for her as well. Parker Webb MD Apr 11, 2016 11:03
[2016-04-11] MEDS: amLODIPine BESYLATE 5 MG TAB PO SCH (11:05)
[2016-04-11] MEDS: OLANZapine 2.5 MG TAB PO SCH ×2 (11:05→22:05)
[2016-04-11] MEDS ORDERED: cloNIDine HCL 0.1 MG TAB PO PRN (18:00)
[2016-04-11] MEDS ORDERED: NITROGLYCERIN 0.4 MG SL 25 TABS/BTL SL PRN (18:00)
--- NOTE | 2016-04-11 18:22 | HHI.PR ---
Subjective Remarks Follow up visit HTN, chest pain, anxiety. Pt. seen today. Reports she had an episode of chest pain while she was outside, radiating to left arm. She got concerned that she went back in to speak with her nurse. EKG ordered but not yet done. She denies any diaphoresis, headache, dizziness with chest pain. She also c/o increase abdominal pain, mid epigastric region, sharp, intermittent , 12/10, doesn't radiate anywhere, aggravated by movement. History of mesh placement and states she is feeling her mesh. Pain is not new and has been having it for a year now, but feels today it was worse. Abd sx done by Dr. Marx and she has not followed with him for a year now. Otherwise, denies n/v/d , constipation. States she does not want to be on pain medications, antidepressants, or anti anxiety. Appears anxious, facial and lip tremors noted. Otherwise, SOB/ dyspnea. Objective Vitals Vital Signs Date Time Temp Pulse Resp B/P Pulse Ox O2 Delivery O2 Flow Rate FiO2 04/11/16 04:00 97.6 73 16 150/76 97 04/10/16 22:00 97.7 111 18 137/76 96 I/O 04/10/16 04/10/16 04/10/16 04/11/16 04/11/16 04/11/16 07:00 15:00 23:00 07:00 15:00 23:00 Intake Total 480 ml Balance 480 ml Intake Oral 480 ml Result Diagram: 04/07/16 0310 04/09/16 1138 Imaging Last Impressions Wrist X-Ray 04/07/16 0000 Signed Impressions: Service Date/Time: Thursday, April 07, 2016 03:04 - CONCLUSION: No acute disease. Bonilla Hughes MD Head CT 04/07/16 0000 Signed Impressions: Service Date/Time: Thursday, April 07, 2016 03:11 - CONCLUSION: Normal examination. Bonilla Hughes MD Ankle X-Ray 04/07/16 0000 Signed Impressions: Service Date/Time: Thursday, April 07, 2016 02:57 - CONCLUSION: 1. Plantar calcaneal spur. No fracture. Bonilla Hughes MD Objective Remarks GENERAL: This is a well-nourished, well-developed patient, in no apparent distress. SKIN: Warm and dry. HEENT: PERRLA. Tongue midline. Airway patent. CARDIOVASCULAR: Regular rate and rhythm without murmurs, gallops, or rubs. RESPIRATORY: Clear to auscultation. Breath sounds equal bilaterally. No wheezes , rales, or rhonchi. GASTROINTESTINAL: Abdomen soft, mid epigastric area tender to palpate, nondistended. Normal active bowel sounds. MUSCULOSKELETAL: Extremities without clubbing, cyanosis, or edema. NEURO: Alert & Oriented. Speech is pressured. Moves all ext x4. Facial and lip tremors. PSYCH: Appears anxious. A/P Assessment and Plan This a 61-year-old female patient with a past medical history which includes bipolar, hypothyroidism, hypertension, EtOH and prescription drug abuse, asthma , ruptured appendix tracheostomy and ileostomy. Patient is seen at inpatient psychiatric center is currently tangential in speech and manic and appearance. Information gathered from patient as well as prior computerized charting. We' ve been consulted for assistance with hypoglycemia. Potassium level this morning 2.7 magnesium level 2.1. Patient reports she has lost 32 pounds over the past 6 months with aggressive speed biking and, "only eating small portions of very healthy foods." Patient denies shortness of breath chest pain nausea vomiting diarrhea constipation fevers or chills. Chest Pain - EKG ordered, troponin, CK ordered, CXR ordered will f/u results - BP meds adjusted, nitrostat PRN - Increase anxiety, possible withdrawal from meds Hypokalemia 2.7 with magnesium of 2.1 40 meq potassium chloride 3 times a day times one day repeat Potassium 4.0 Encouraged patient to increase by mouth intake of potassium rich foods Hypothyroidism continue home Synthroid TSH 1.030 Hypertension blood pressure remains elevated Will increase Norvasc to 10 mg daily, clonidine PRN Bipolar management per psychiatric team DVT prophylaxis patient is ambulatory and low risk Discussed plan of care with patient and nursing, Roxy Patel Apr 11, 2016 18:22
[2016-04-11] MEDS: PANTOPRAZOLE SOD 40 MG DELAYED RELEASE TAB PO SCH (18:34)
--- NOTE | 2016-04-11 19:10 | RADRPT ---
EXAM DATE/TIME: 04/11/2016 18:17 [facility] COMPARISON: No previous studies available for comparison. INDICATIONS : Chest pain. MEDICAL HISTORY : Hypothyroidism. SURGICAL HISTORY : Cholecystectomy. tracheostomy and ileostomy ENCOUNTER: Initial ACUITY: 1 day PAIN SCORE: 0/10 LOCATION: Bilateral chest FINDINGS: A single view of the chest demonstrates the lungs to be symmetrically aerated without evidence of mas s, infiltrate or effusion. The cardiomediastinal contours are unremarkable. Osseous structures are intact. CONCLUSION: No acute disease. Ortzi Barrios MD on April 11, 2016 at 19:08 Board Certified Radiologist. This report was verified electronically.
[2016-04-11 20:18] VITALS: BP_SYST 184; BP_SYST 202; BP_DIAS 84; BP_DIAS 88; PULSE 73; O2SAT 99
[2016-04-11 20:18] LABS: CREATINE KINASE 357 U/L (26-192)
[2016-04-11 20:32] LABS: CKMB 4.4 NG/ML (0.5-3.6)
[2016-04-11 20:57] VITALS: BP_SYST 139; BP_SYST 140; BP_DIAS 66; BP_DIAS 70; PULSE 74
[2016-04-11] MEDS: DIVALPROEX SODIUM DELAYED RELEASE 250 MG TAB PO SCH (22:06)
[2016-04-12] VITALS (7 sets, daily range): BP systolic 68–167; BP diastolic 46–84; PULSE 70–101; RESP 16–18; TEMP 97.3–99; O2SAT 99–100
[2016-04-12 01:52] LABS: CREATINE KINASE 335 U/L (26-192)
[2016-04-12 02:04] LABS: CKMB 4.2 NG/ML (0.5-3.6)
[2016-04-12] MEDS ORDERED: OLANZapine IM 10 MG VIAL IM ONE (06:30)
[2016-04-12] MEDS: LEVOTHYROXINE SODIUM 88 MCG TAB PO SCH (06:36)
[2016-04-12 07:48] LABS: CREATINE KINASE 297 U/L (26-192)
[2016-04-12] MEDS: OLANZapine 2.5 MG TAB PO SCH ×3 (08:59→21:16)
[2016-04-12] MEDS: PANTOPRAZOLE SOD 40 MG DELAYED RELEASE TAB PO SCH ×2 (08:59→09:00)
[2016-04-12] MEDS: DIVALPROEX SODIUM DELAYED RELEASE 250 MG TAB PO SCH ×3 (08:59→21:16)
--- NOTE | 2016-04-12 10:20 | EKG ---
Date Performed: 04/11/2016 Time Performed: 21:07:23 PTAGE: 61 years EKG: Sinus rhythm INCOMPLETE RIGHT BUNDLE BRANCH BLOCK BORDERLINE ECG PREVIOUS TRACING : 03/16/2015 12.30 DOCTOR: Thompson Schwartz Interpretating Date/Time 04/12/2016 10:18:12
--- NOTE | 2016-04-12 11:58 | HHI.PR ---
Subjective Remarks Follow up visit HTN, chest pain, anxiety, syncopal episode. Patient reported by RN that patient went unresponsive this morning about 9:40 AM while they were outside in the recreational area. Patient became responsive after a few minutes vital signs was checked and found to have blood pressure in the 68/46. Patient became responsive again and the repeat blood pressure 106/50. Patient did not take any of her BP meds in the morning but was given Zyprexa IM at around 7:00. Patient was seen today. Awake alert and responsive. Neuro checks done, exam was within normal. No neuro deficit noted. Denies seeing AURA, dizziness, before syncopal episode. States she was just talking and laughing and all of a sudden she didn't remember what happened. Otherwise on exam, denies pain and discomfort. Denies SOB/ dyspnea. Denies chest pain, palpitations, headaches, dizziness. Denies fevers, chills, n/v/d. Objective Vitals Vital Signs Date Time Temp Pulse Resp B/P Pulse Ox O2 Delivery O2 Flow Rate FiO2 04/12/16 10:42 85 139/63 99 04/12/16 10:42 93 125/60 100 04/12/16 10:41 101 121/57 100 04/12/16 10:08 106/50 04/12/16 09:55 68/46 04/12/16 05:41 97.3 77 16 159/77 100 04/12/16 01:20 97.5 70 16 167/76 99 04/11/16 20:57 74 140/70 139/66 04/11/16 20:18 73 184/84 99 202/88 I/O 04/11/16 04/11/16 04/11/16 04/12/16 04/12/16 04/12/16 07:00 15:00 23:00 07:00 15:00 23:00 Intake Total 480 ml Balance 480 ml Intake Oral 480 ml Result Diagram: 04/09/16 1138 Objective Remarks GENERAL: This is a well-nourished, well-developed patient, in no apparent distress. SKIN: Warm and dry. HEENT: Normocephalic. Pupils equal round and reactive. Nose without bleeding. Airway patent. Tongue midline. NECK: Trachea midline. No JVD. Supple. CARDIOVASCULAR: Regular rate and rhythm without murmurs, gallops, or rubs. RESPIRATORY: Clear to auscultation. Breath sounds equal bilaterally. No wheezes , rales, or rhonchi. GASTROINTESTINAL: Abdomen soft, non-tender, nondistended. Bowel Sounds normoactive x4. MUSCULOSKELETAL: Extremities without clubbing, cyanosis, or edema. NEUROLOGICAL: Awake and alert. Oriented x 3. No focal neuro deficit. AYALA equal strength and sensory. Normal speech. A/P Problem List: (1) Bipolar disorder, curr episode manic w/o psychotic features, moderate ICD Code: F31.12 Status: Acute (2) Depressive disorder ICD Code: F32.9 Status: Acute (3) Syncope ICD Code: R55 Status: Acute (4) HTN (hypertension) ICD Code: I10 Status: Acute Assessment and Plan This a 61-year-old female patient with a past medical history which includes bipolar, hypothyroidism, hypertension, EtOH and prescription drug abuse, asthma , ruptured appendix tracheostomy and ileostomy. Patient is seen at inpatient psychiatric center is currently tangential in speech and manic and appearance. Information gathered from patient as well as prior computerized charting. We' ve been consulted for assistance with hypoglycemia. Potassium level this morning 2.7 magnesium level 2.1. Patient reports she has lost 32 pounds over the past 6 months with aggressive speed biking and, "only eating small portions of very healthy foods." Patient denies shortness of breath chest pain nausea vomiting diarrhea constipation fevers or chills. Syncope - neurochecks q4 x24hrs. neuro check within normal on exam. Possibly related to zyprexa IM - SE severe orthostatic hypotension increase risks with female. Consider to avoid giving IM route with patient. - Stat labs CBC, CMP will follow results - EEG will follow results - Carotid US - Repeat EKG Chest Pain - EKG ordered, troponin, CK ordered, CXR ordered will f/u results - EKG reviewed by me without ST changes, sinus rhythm, incomplete bundle branch block. - CK slightly elevated 357 --> 335 --> 297. Encouraged to hydrate. - Troponins negative - Chest x-ray showed no acute disease - BP meds adjusted, nitrostat PRN - Increase anxiety, possible withdrawal from meds Hypokalemia 2.7 with magnesium of 2.1 40 meq potassium chloride 3 times a day times one day repeat Potassium 4.0 Encouraged patient to increase by mouth intake of potassium rich foods Hypothyroidism continue home Synthroid TSH 1.030 Hypertension blood pressure remains elevated increase Norvasc to 10 mg daily, clonidine PRN. Monitor for now patient had syncopal episode, low BP this am Bipolar management per psychiatric team DVT prophylaxis patient is ambulatory and low risk Discussed plan of care with patient and nursing Written by Roxy Jauregui, acting as scribe for Dr. Merlos on 04/12/16 at 16: 27. Attending Statement All or portions of this note were transcribed by scribe [Roxy Jauregui]. I, Dr. Jose Freed personally performed the history, physical exam, and medical decision making; and confirmed the accuracy of the information in the transcribed note. Authenticated by Dr. Jose Freed on 04/17/16 at 20:44. Roxy Mancini Apr 12, 2016 11:58 Jose Bishop MD Apr 17, 2016 20:44
--- NOTE | 2016-04-12 12:38 | HHI.PYPN ---
Subjective Remarks Patient is less irritable and less argumentative this morning. She is not demanding to leave and her insight has improved in that she recognizes she has bipolar, manic. This physician is titrating the Depakote and monitoring her response to same before making a decision regarding continuing the Zyprexa and changing to Abilify. Review of Systems Except as stated in HPI: all other systems reviewed are Neg Objective Alert: Yes [place]: Person (ox4), Place Mood: Agitated Affect: Labile, Manic Memory Intact: Immediate, Recent, Remote, Comment (no gross abnormality) Hallucinations: Other (negative) Delusions: No Delusion Type: Other Suicidal: Ideation (deneis any) Homicidal: Ideation (deneis any) Insight/Judgement Moderately improved insight and judgment. Labs Test 04/11/16 04/12/16 04/12/16 19:40 01:15 07:10 Total Creatine Kinase 357 U/L 335 U/L 297 U/L Creatine Kinase MB 4.4 NG/ML 4.2 NG/ML 4.0 NG/ML Creatine Kinase MB % 1.2 % 1.3 % 1.3 % Troponin I LESS THAN 0.02 LESS THAN 0.02 LESS THAN 0.02 NG/ML NG/ML NG/ML Vitals/IOs Vital Signs Date Time Temp Pulse Resp B/P Pulse Ox O2 Delivery O2 Flow Rate FiO2 04/12/16 10:42 85 139/63 99 04/12/16 05:41 97.3 16 Intake and Output 04/11/16 04/11/16 04/12/16 08:00 16:00 00:00 Intake Total 480 ml Balance 480 ml Assessment & Plan Problem List: (1) Hypomania ICD Code: F30.8 (2) Bipolar disorder, curr episode manic w/o psychotic features, moderate ICD Code: F31.12 Assessment & Plan Estimated LOS: days will order another Depakote level for tomorrow. Patient scheduled to appear in front of [place] [employer] regarding [place] act. Anticipate meeting with patient's tomorrow regarding discharge planning as well. Justification for Cont. Inpt. We are continuing to titrate Depakote to a therapeutic blood level and anticipate change from Zyprexa to Abilify. Parker Webb MD Apr 12, 2016 12:38
[2016-04-12 12:41] LABS: AUTOMATED NEUTROPHIL # 9.3 TH/MM3 (1.8-7.7); BASOPHIL % 0.2 % (0.0-2.0); EOSINOPHIL # 0.1 TH/MM3 (0-0.4); EOSINOPHIL % 0.8 % (0.0-4.0); HEMATOCRIT 38.5 % (35.0-46.0); LYMPHOCYTE # 0.6 TH/MM3 (1.0-4.8); MEAN CELL VOLUME 88.1 FL (80.0-100.0); MEAN CORPUSCULAR HEMOGLOBIN 30.4 PG (27.0-34.0); MEAN CORPUSCULAR HGB CONC 34.5 % (32.0-36.0); MONO % 3.7 % (0.0-8.0); NEUT % 89.3 % (16.0-70.0); PLATELET COUNT 272 TH/MM3 (150-450); RED BLOOD COUNT 4.37 MIL/MM3 (4.00-5.30); RED CELL DISTRIBUTION WIDTH 12.9 % (11.6-17.2); WHITE BLOOD COUNT 10.5 TH/MM3 (4.0-11.0)
[2016-04-12 12:43] LABS: HEMO FLAGS AUTO DIFF
[2016-04-12 12:58] LABS: ALKALINE PHOSPHATASE 49 U/L (45-117); ALT (GPT) 27 U/L (10-53); ANION GAP 9 MEQ/L (5-15); AST (GOT) 25 U/L (15-37); BICARBONATE 27.7 MEQ/L (21.0-32.0); BLOOD UREA NITROGEN 19 MG/DL (7-18); CHLORIDE 101 MEQ/L (98-107); GLOMERULAR FILTRATION RATE 56 ML/MIN (>89); MAGNESIUM 1.5 MG/DL (1.5-2.5); POTASSIUM 3.5 MEQ/L (3.5-5.1); SODIUM (NA) 138 MEQ/L (136-145); TOTAL BILIRUBIN ADULT 0.9 MG/DL (0.2-1.0)
[2016-04-12 13:44] LABS: BANDS 26 % (0-6); METAMYELOCYTES 3 % (0-1); NEUTROPHIL # MANUAL DIFF 8.7 TH/MM3 (1.8-7.7); PLATELET ESTIMATE SMEAR NORMAL (NORMAL); PLATELET MORPHOLOGY NORMAL (NORMAL); POLYS (SEG NEUTROPHILS) 54 % (16-70); SCAN/DIFF FINAL DIFF MANUAL; WBC DIFF SAMPLE 100
--- NOTE | 2016-04-12 16:42 | MG ---
cc: TISHA MANSFIELD M.D. Lab No: Date: 04/12/2016 Age: Sex: F Race: ELECTROENCEPHALOGRAM NUMBER [id number] TECHNIQUE 17 channel EEG. DESCRIPTION Background rhythm symmetrical alpha rhythm, frequency is 8-10 Hz. Amplitude 20-30 microvolts. There is some beta activity due to medication. Hyperventilation does not change the background rhythm. Photic results in a normal driving response. IMPRESSION Normal EEG. MD ARCHANA Eden/ANDRE /4:36 PM /4:38 PM
--- NOTE | 2016-04-12 20:59 | RADRPT ---
EXAM DATE/TIME: 04/12/2016 17:54 [facility] COMPARISON: No previous studies available for comparison. INDICATIONS : Syncope. MEDICAL HISTORY : Hypothyroidism. Gastroesophageal reflux disease. Hypertension. Herniated disk. Bipolar. ETOH and [place] bstance abuse. Hiatal hernia. SURGICAL HISTORY : Appendectomy. Cholecystectomy. Tracheostomy. Ileostomy. ENCOUNTER: Initial ACUITY: 2 days PAIN SCORE: 4/10 LOCATION: Bilateral neck PEAK SYSTOLIC VELOCITIES (cm/sec): ICA/CCA RATIO: Right: 1.1 Left: 0.8 ICA: Right: 90 Left: 82 CCA: Right: 81 Left: 103 ECA: Right: 96 Left: 67 VERTEBRAL: Right: 50 antegrade Left: 42 antegrade Elevated flow velocities and ICA/CCA ratios have been found to correlate with increased degrees of vessel stenosis, calculated as percentage of diameter relative to a normal segment of distal ICA/CCA FINDINGS: RIGHT CAROTID: No significant stenosis is visualized. The waveforms are within normal limits. LEFT CAROTID: No significant stenosis is visualized. The waveforms are within normal limits. VERTEBRAL ARTERIES: Antegrade flow is seen in both vertebral arteries. MISCELLANEOUS: None. CONCLUSION: No evidence of significant carotid plaque or hemodynamically significant stenosis. Ortiz Barrios MD on April 12, 2016 at 20:57 Board Certified Radiologist. This report was verified electronically.
[2016-04-13 05:23] VITALS: BP 157/73; PULSE 80; RESP 18; TEMP 98.2; O2SAT 98
[2016-04-13] MEDS: LEVOTHYROXINE SODIUM 88 MCG TAB PO SCH (06:03)
[2016-04-13] MEDS: OLANZapine 2.5 MG TAB PO SCH ×2 (08:39→21:31)
[2016-04-13] MEDS: PANTOPRAZOLE SOD 40 MG DELAYED RELEASE TAB PO SCH (08:39)
[2016-04-13] MEDS: DIVALPROEX SODIUM DELAYED RELEASE 250 MG TAB PO SCH (08:40)
--- NOTE | 2016-04-13 10:09 | HHI.PYPN ---
Subjective Remarks Patient was very angry, labile, irritable and argumentative this morning. She had a court hearing and was unreasonable with her and this physician and the counselor. She refused to speak to the transmitter engineer. The transmitter engineer ruled that she did get to stay in the hospital under the [place] act. Review of Systems ROS Limitations: Clinical Condition Except as stated in HPI: all other systems reviewed are Neg Objective Alert: Yes [place]: Person (ox4), Place Mood: Angry Affect: Labile, Manic Memory Intact: Immediate, Recent, Remote, Comment (no gross abnormality) Hallucinations: Other (negative) Delusions: No Delusion Type: Other Suicidal: Ideation (deneis any) Homicidal: Ideation (deneis any) Insight/Judgement Insight and judgment are significantly impaired today. Patient feels if she changes the timing of her Depakote she is ready to go home. Labs Test 04/12/16 04/12/16 11:19 11:41 White Blood Count 10.5 TH/MM3 Red Blood Count 4.37 MIL/MM3 Hemoglobin 13.3 GM/DL Hematocrit 38.5 % Mean Corpuscular Volume 88.1 FL Mean Corpuscular Hemoglobin 30.4 PG Mean Corpuscular Hemoglobin 34.5 % Concent Red Cell Distribution Width 12.9 % Platelet Count 272 TH/MM3 Mean Platelet Volume 8.9 FL Neutrophils (%) (Auto) 89.3 % Lymphocytes (%) (Auto) 6.0 % Monocytes (%) (Auto) 3.7 % Eosinophils (%) (Auto) 0.8 % Basophils (%) (Auto) 0.2 % Neutrophils # (Auto) 9.3 TH/MM3 Lymphocytes # (Auto) 0.6 TH/MM3 Monocytes # (Auto) 0.4 TH/MM3 Eosinophils # (Auto) 0.1 TH/MM3 Basophils # (Auto) 0.0 TH/MM3 CBC Comment AUTO DIFF Differential Total Cells 100 Counted Neutrophils % (Manual) 54 % Band Neutrophils % 26 % Lymphocytes % 14 % Monocytes % 3 % Neutrophils # (Manual) 8.7 TH/MM3 Metamyelocytes 3 % Differential Comment FINAL DIFF MANUAL Platelet Estimate NORMAL Platelet Morphology Comment NORMAL Hematology Comments Sodium Level 138 MEQ/L Potassium Level 3.5 MEQ/L Chloride Level 101 MEQ/L Carbon Dioxide Level 27.7 MEQ/L Anion Gap 9 MEQ/L Blood Urea Nitrogen 19 MG/DL Creatinine 1.00 MG/DL Estimat Glomerular Filtration 56 ML/MIN Rate Random Glucose 99 MG/DL Calcium Level 8.7 MG/DL Magnesium Level 1.5 MG/DL Total Bilirubin 0.9 MG/DL Aspartate Amino Transf 25 U/L (AST/SGOT) Alanine Aminotransferase 27 U/L (ALT/SGPT) Alkaline Phosphatase 49 U/L Total Protein 7.1 GM/DL Albumin 3.7 GM/DL Valproic Acid (Depakene) Level 51 MCG/ML Vitals/IOs Vital Signs Date Time Temp Pulse Resp B/P Pulse Ox O2 Delivery O2 Flow Rate FiO2 04/13/16 05:23 98.2 80 18 157/73 98 Assessment & Plan Problem List: (1) Hypomania ICD Code: F30.8 (2) Bipolar disorder, curr episode manic w/o psychotic features, moderate ICD Code: F31.12 Assessment & Plan Estimated LOS: days this physician will change the timing of the patient's Depakote in order to appease the patient and match her complaints of increasing agitation and 5 PM. Zyprexa will remain the same. It is anticipated she'll be in the hospital over the weekend. Justification for Cont. Inpt. Patient's insight and judgment remain markedly impaired and she has little idea how to care for her bipolar illness. Parker Webb MD Apr 13, 2016 10:09
--- NOTE | 2016-04-13 14:13 | HHI.PR ---
Subjective Remarks Follow up visit HTN, chest pain, anxiety, syncopal episode. She was seen today. States she is doing better. Denies pain and discomfort. Denies SOB/ dyspnea. Denies chest pain, palpitations, headaches, dizziness. Denies fevers, chills, n/v/d. As per staff, no syncopal episodes, no acute issues. Objective Vitals Vital Signs Date Time Temp Pulse Resp B/P Pulse Ox O2 Delivery O2 Flow Rate FiO2 04/13/16 05:23 98.2 80 18 157/73 98 04/12/16 18:00 99.0 86 18 158/78 100 I/O 04/12/16 04/12/16 04/12/16 04/13/16 04/13/16 04/13/16 06:59 14:59 22:59 06:59 14:59 22:59 Intake Total 360 ml Balance 360 ml Intake Oral 360 ml Result Diagram: 04/12/16 1119 04/12/16 1141 Imaging Last Impressions Carotid Artery Ultrasound 04/12/16 0000 Signed Impressions: Service Date/Time: Tuesday, April 12, 2016 17:54 - CONCLUSION: No evidence of significant carotid plaque or hemodynamically significant stenosis. Ortiz Barrios MD Chest X-Ray 04/11/16 0000 Signed Impressions: Service Date/Time: Monday, April 11, 2016 18:17 - CONCLUSION: No acute disease. Ortiz Barrios MD Wrist X-Ray 04/07/16 0000 Signed Impressions: Service Date/Time: Thursday, April 07, 2016 03:04 - CONCLUSION: No acute disease. Bonilla Hughes MD Head CT 04/07/16 0000 Signed Impressions: Service Date/Time: Thursday, April 07, 2016 03:11 - CONCLUSION: Normal examination. Bonilla Hughes MD Ankle X-Ray 04/07/16 0000 Signed Impressions: Service Date/Time: Thursday, April 07, 2016 02:57 - CONCLUSION: 1. Plantar calcaneal spur. No fracture. Bonilla Hughes MD Objective Remarks GENERAL: This is a well-nourished, well-developed patient, in no apparent distress. SKIN: Warm and dry. HEENT: Normocephalic. Pupils equal round and reactive. Nose without bleeding. Airway patent. Tongue midline. NECK: Trachea midline. No JVD. Supple. CARDIOVASCULAR: Regular rate and rhythm without murmurs, gallops, or rubs. RESPIRATORY: Clear to auscultation. Breath sounds equal bilaterally. No wheezes , rales, or rhonchi. GASTROINTESTINAL: Abdomen soft, non-tender, nondistended. Bowel Sounds normoactive x4. MUSCULOSKELETAL: Extremities without clubbing, cyanosis, or edema. NEUROLOGICAL: Awake and alert. Oriented x 3. No focal neuro deficit. AYALA equal strength and sensory. Normal speech. A/P Problem List: (1) Bipolar disorder, curr episode manic w/o psychotic features, moderate ICD Code: F31.12 Status: Acute (2) Depressive disorder ICD Code: F32.9 Status: Acute (3) Syncope ICD Code: R55 Status: Acute (4) HTN (hypertension) ICD Code: I10 Status: Acute Assessment and Plan This a 61-year-old female patient with a past medical history which includes bipolar, hypothyroidism, hypertension, EtOH and prescription drug abuse, asthma , ruptured appendix tracheostomy and ileostomy. Patient is seen at inpatient psychiatric center is currently tangential in speech and manic and appearance. Information gathered from patient as well as prior computerized charting. We' ve been consulted for assistance with hypoglycemia. Potassium level this morning 2.7 magnesium level 2.1. Patient reports she has lost 32 pounds over the past 6 months with aggressive speed biking and, "only eating small portions of very healthy foods." Patient denies shortness of breath chest pain nausea vomiting diarrhea constipation fevers or chills. Syncope - neurochecks q4 x24hrs. neuro check within normal on exam. Possibly related to zyprexa IM - SE severe orthostatic hypotension increase risks with female. Consider to avoid giving IM route with patient. - Stat labs CBC, CMP will follow results - EEG normal - Carotid US showed no evidence of significant carotid plaque or hemodynamically significant stenosis. - Repeat EKG sinus rhythm without any ST changes. Normal EKG. - Avoid Zyprexa IM. Patient does not have an episode of syncope. Chest Pain - EKG ordered, troponin, CK ordered, CXR ordered will f/u results - EKG reviewed by me without ST changes, sinus rhythm, incomplete bundle branch block. - CK slightly elevated 357 --> 335 --> 297. Encouraged to hydrate. - Troponins negative - Chest x-ray showed no acute disease - BP meds adjusted, nitrostat PRN - Increase anxiety, possible withdrawal from meds Hypokalemia 2.7 with magnesium of 2.1 40 meq potassium chloride 3 times a day times one day repeat Potassium 4.0 Encouraged patient to increase by mouth intake of potassium rich foods Hypothyroidism continue home Synthroid TSH 1.030 Hypertension - improving. increase Norvasc to 10 mg daily, clonidine PRN. Patient gets easily anxious. She will start with clonazepam. Bipolar management per psychiatric team DVT prophylaxis patient is ambulatory and low risk Full code Discussed plan of care with patient and nursing Stable from Hospitalist standpoint. We will sign off. Reconsult as needed. Roxy Mancini Apr 13, 2016 14:13
[2016-04-13] MEDS: clonazePAM 0.5 MG TAB PO PRN (15:24)
[2016-04-13] MEDS: DIVALPROEX DR 500 MG TABEC PO SCH (16:08)
[2016-04-13 18:37] VITALS: BP 196/75; PULSE 86; RESP 16; TEMP 98; O2SAT 100
--- NOTE | 2016-04-14 00:01 | EKG ---
Date Performed: 04/12/2016 Time Performed: 14:05:17 PTAGE: 61 years EKG: Sinus rhythm INCOMPLETE RIGHT BUNDLE BRANCH BLOCK SEPTAL MYOCARDIAL INFARCTION , OF INDETERMINATE AGE ABNORMAL EC G PREVIOUS TRACING : 04/12/2016 00.02 Compared to prior tracing no significant change DOCTOR: Cuate Armendariz Interpretating Date/Time 04/14/2016 00:00:20
[2016-04-14 05:17] VITALS: BP 157/67; PULSE 95; RESP 18; TEMP 97.8; O2SAT 97
[2016-04-14] MEDS: LEVOTHYROXINE SODIUM 88 MCG TAB PO SCH (05:39)
[2016-04-14] MEDS: PANTOPRAZOLE SOD 40 MG DELAYED RELEASE TAB PO SCH (08:13)
[2016-04-14] MEDS: DIVALPROEX DR 500 MG TABEC PO SCH ×2 (08:13→17:00)
[2016-04-14] MEDS: OLANZapine 2.5 MG TAB PO SCH (08:13)
--- NOTE | 2016-04-14 12:41 | HHI.PYPN ---
Subjective Remarks Continues to appear hypomanic. However, less irritable and more cooperative. Appears to take out her frustrations on her most of all. Discussed the need to remain on mood stabilizing medication. Review of Systems ROS Limitations: Clinical Condition Except as stated in HPI: all other systems reviewed are Neg Objective Alert: Yes [place]: Person (ox4), Place Mood: Anxious Affect: Labile, Manic Memory Intact: Immediate, Recent, Remote, Comment (no gross abnormality) Hallucinations: Other (negative) Delusions: No Delusion Type: Other Suicidal: Ideation (deneis any) Homicidal: Ideation (deneis any) Insight/Judgement Mildly improved but remains impaired. Vitals/IOs Vital Signs Date Time Temp Pulse Resp B/P Pulse Ox O2 Delivery O2 Flow Rate FiO2 04/14/16 05:17 97.8 95 18 157/67 97 Intake and Output 04/13/16 04/13/16 04/14/16 08:00 16:00 00:00 Intake Total 360 ml 360 ml 480 ml Balance 360 ml 360 ml 480 ml Assessment & Plan Problem List: (1) Hypomania ICD Code: F30.8 (2) Bipolar disorder, curr episode manic w/o psychotic features, moderate ICD Code: F31.12 Assessment & Plan Estimated LOS: days will increase dose of Zyprexa and obtain Depakote level. Plan to allow patient to leave, possibly this weekend, if feels comfortable taking care of her. Justification for Cont. Inpt. Unable to care for herself. Parker Webb MD Apr 14, 2016 12:41
[2016-04-14 19:21] VITALS: BP 144/69; PULSE 97; RESP 16; TEMP 98.2; O2SAT 100
[2016-04-14] MEDS: OLANZapine 5 MG TAB PO SCH (22:01)
[2016-04-15] MEDS: LEVOTHYROXINE SODIUM 88 MCG TAB PO SCH (05:33)
[2016-04-15 06:16] VITALS: BP 132/64; PULSE 89; RESP 18; TEMP 98.2; O2SAT 100
[2016-04-15] MEDS: OLANZapine 5 MG TAB PO SCH ×2 (08:41→20:15)
[2016-04-15] MEDS: PANTOPRAZOLE SOD 40 MG DELAYED RELEASE TAB PO SCH (08:41)
[2016-04-15] MEDS: DIVALPROEX DR 500 MG TABEC PO SCH ×2 (08:41→17:00)
[2016-04-15] MEDS: clonazePAM 0.5 MG TAB PO PRN ×2 (10:35→20:16)
[2016-04-15] MEDS: ACETAMINOPHEN 325 MG TAB PO PRN ×2 (10:38→21:03)
--- NOTE | 2016-04-15 14:19 | HHI.PYPN ---
Subjective Remarks Pt seen and discussed with staff. Pt is tolerating increased dose of olanzapine without side effects. She reports improved sleep, but did awake around 2 in the morning to read her bible and "carry on a wonderful, meaningful conversation with staff!". She reports that mood is "FANTASTIC!" and states that she is ready for discharge today because her purchased a therapy cat and that is all she needs. Staff report that she has been easily agitated. No SI/HI Review of Systems Psychiatric: COMPLAINS OF: Mood changes Objective Alert: Yes [place]: Person (ox4), Place Mood: Other (euphoric) Affect: Labile, Manic Memory Intact: Immediate, Recent, Remote, Comment (no gross abnormality) Hallucinations: Other (negative) Delusions: No Delusion Type: Other Suicidal: Ideation (deneis any) Homicidal: Ideation (deneis any) Insight/Judgement poor Vitals/IOs Vital Signs Date Time Temp Pulse Resp B/P Pulse Ox O2 Delivery O2 Flow Rate FiO2 04/15/16 06:16 98.2 89 18 132/64 100 Assessment & Plan Problem List: (1) Bipolar disorder, curr episode manic w/o psychotic features, moderate ICD Code: F31.12 (2) Hypomania ICD Code: F30.8 Assessment & Plan Continue current tx plan. Estimated LOS: days Justification for Cont. Inpt. impairments in social functioning Mili Lazaro MD Apr 15, 2016 14:19
[2016-04-15 18:22] VITALS: BP 181/76; PULSE 86; RESP 18; TEMP 98.2; O2SAT 100
[2016-04-16] MEDS: LEVOTHYROXINE SODIUM 88 MCG TAB PO SCH (06:07)
[2016-04-16 06:22] VITALS: BP 122/59; PULSE 85; RESP 16; TEMP 97.4; O2SAT 98
[2016-04-16] MEDS: OLANZapine 5 MG TAB PO SCH (08:30)
[2016-04-16] MEDS: DIVALPROEX DR 500 MG TABEC PO SCH (08:30)
[2016-04-16] MEDS: PANTOPRAZOLE SOD 40 MG DELAYED RELEASE TAB PO SCH (08:30)
--- NOTE | 2016-04-17 10:11 | HHI.DS ---
Psychiatry Discharge Summary Inpatient Psychiatric care?: Yes Advance Directive: Yes Reason Not Provided: declined Mental Health AdvanceDirective: No Health Care Proxy: No Admission Admission Date Apr 07, 2016 at 15:47 Admission Diagnosis: (1) Bipolar disorder, curr episode manic w/o psychotic features, moderate ICD Code: F31.12 Brief History Documentation in the ER, by Ms. Skinner 04/07/2016: "The patient is a 61-year- old female with history of depression, alcohol abuse in remission who presents to the emergency department for multiple complaints including a psychiatric evaluation. As per ed documentation which is included in this report ; " The patient states she has a long-standing history of alcohol abuse that was followed by prescription abuse. The patient states she has a history of psychiatric disorders and was on psychiatric medications after she stopped drinking alcohol. The patient then stop taking her psychiatric medications, because she was having severe abdominal pain. The patient states she underwent 6 surgeries within a years time for her abdominal pain, however, continue to have the abdominal pain. The patient states that when she stopped her psychiatric medications, her pain improved. However, the patient states she "lost her mind ", after she stopped taking her psychiatric medications. The patient denies any outright suicidal or homicidal ideation. Patient is seen in J pod. She initially refused to speak with me and was refusing to go in her room. Staff also informed me that she was naked in the hallway. She agrees to speak with me after explanation of my role. She is awake, alert and oriented female with appropriate hygiene.She is oriented x 4. Her speech is pressured and circumstantial. She insist on telling me her medical history since 2009 when she needed emergency surgery for abdominal pain. In the middle of her our interview she lifts up her gown to show me her abdomen . She is not wearing any underwear or pants and seem unfazed by this inappropriate behavior. Her affect is labile and she is angry and tearful. She keeps her eyes closed during part of the interview. Her complaints include abdominal pain, stopping all her medications 3 weeks ago as she felt they were causing her abdominal pain, not sleeping, mind not being able to stop thinking". No sucidal or homicdal ideation. Denies any hallucinatory process. Patient is agreeable to inpatient admission at this time. She denies any alcohol use and current toxicology is negative. I spoke with her who reports that for the past week she has not slept except for one day in which she took one Ambien and slept for 13 hours, non stop talking to strangers, hyperactivity with multiple projects at the same time but not completing any of them, easily agitated, decreased attention and poor concentration, overspending." 04/08/2016: The patient is a 61 years old woman, domicile with her in [place], retired, with psychiatric history of depression and anxiety, no psychiatric hospitalizations, no previous suicidal attempts, she was treated with Prozac 20 mg, buspirone 10 mg 3 times a day, and Xanax 0.5 mg twice a day prescribed by PCP, but she stopped suddenly these medication about 2 weeks ago, she also has history of alcohol use disorder, now in sustained full remission, she has medical history of hypothyroidism, hypertension, and multiple abdominal surgeries. She was brought to the ER by her family for a psychiatric evaluation due to new onset bizarre and disorganized behavior at home. 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 Patient seems to be very hyperactive, talkative, with elevated mood, but at the same time she is redirectable. Patient does not have an insight of the reason of her hospitalization, she says she is here because she stopped taking her medications for anxiety and due to her past abdominal surgery. Patient says that she was taking BuSpar, Paxil and Xanax, but she stopped taking them "because they were not allowing me to enjoy my life". Patient denies depressive symptoms, she reports increased energy, decreased need to sleep, increased need to talk, she says she feels "a current a positive energy insight me", she denies suicidal and homicidal ideation, she denies visual and auditory hallucinations. No acute paranoia or delusions are observed. Even though patient is talkative, she is no pressure. Loosening of associations, disorganized speech, tangentiality are present, but patient is redirectable and able to answer appropriately most of our questions. At the moment of this evaluation no delusions, paranoia, internal stimulation, increased self esteem are observed or reported. Patient is fully oriented 3, decreased attention span is present, but no gross cognitive impairment. Patient denies the use of illicit drugs and alcohol. Collateral information from her , Kenneth Littlejohn, , was obtained. He added that the patient has been not herself police in the last 2 weeks. He relates this changes with the sudden stop of psychotropics. For the last 2 weeks the patient has been basically no sleeping, talking nonsense, making inappropriate sexual comments and having inappropriate behavior, she has been hyperverbal, spending money in unnecessary things. He explains that this is the first time that he sees this can of behavior in his . Tobacco Use In Past 30 Days: No Tobacco Past 30 Days Alcohol Use: Never Hospital Course Patient behaved in a agitated, belligerent and manic manner during the first week of her hospitalization. Eventually she was stabilized on Depakote 1000 mg per day and Zyprexa 10 mg per day. She was taken in front of the [employer] [facility] director who did a pulled the reasonableness of the [employer] for the last several days of her hospital care. During her care she did participate in individual, family and group therapies. At the time of discharge she was given both follow up recommendations and prescriptions for her medications. Results Blood Pressure 122 / 59 Vital Signs Date Time Temp Pulse Resp B/P Pulse Ox O2 Delivery O2 Flow Rate FiO2 04/16/16 06:22 97.4 85 16 122/59 98 None pending Summary of Procedures None Imaging Last Impressions Carotid Artery Ultrasound 04/12/16 0000 Signed Impressions: Service Date/Time: Tuesday, April 12, 2016 17:54 - CONCLUSION: No evidence of significant carotid plaque or hemodynamically significant stenosis. Ortiz Barrios MD Chest X-Ray 04/11/16 0000 Signed Impressions: Service Date/Time: Monday, April 11, 2016 18:17 - CONCLUSION: No acute disease. Ortiz Barrios MD Wrist X-Ray 04/07/16 0000 Signed Impressions: Service Date/Time: Thursday, April 07, 2016 03:04 - CONCLUSION: No acute disease. Bonilla Hughes MD Head CT 04/07/16 0000 Signed Impressions: Service Date/Time: Thursday, April 07, 2016 03:11 - CONCLUSION: Normal examination. Bonilla Hughes MD Ankle X-Ray 04/07/16 0000 Signed Impressions: Service Date/Time: Thursday, April 07, 2016 02:57 - CONCLUSION: 1. Plantar calcaneal spur. No fracture. Bonilla Hughes MD Pending results at discharge: No Medications # of Antipsychotic meds at D/C: 1 Appropriate >1 Antipsych meds?: 1 Approp Antipsych med options 1 - Minimum of three failed multiple trials of monotherapy. 2 - Documented plan to taper to monotherapy due to previous use of multiple meds OR cross-taper in progress at D/C. 3 - Documentation of augmentation of Clozapine. 4 - Justification other than those listed in allowable values 1-3, document here : Discharge Discharge Date: Apr 16, 2016 Discharge Diagnosis: (1) Bipolar disorder, curr episode manic w/o psychotic features, moderate Diagnosis: Principal ICD Code: F31.12 Mental Status Exam at Disch Patient continued should to show some hypomanic behavior with rapid speech and irritability. However she was basically pleasant and cooperative and her wanted to take her home and care for her. Therefore she no longer met the crack criteria and was discharged. No suicidal or homicidal ideation or psychotic features were seen at the time of discharge. Pt Condition on Discharge: Stable Discharge Disposition: Discharge Home Discharge Instructions Diet Instructions: As Tolerated, No Restrictions Activities you can perform: Regular-No Restrictions Discharge Time <= 30 minutes Discharge/Advance Care Plan Health Problems: (1) Bipolar disorder, curr episode manic w/o psychotic features, moderate (2) Hypomania Goals to promote your health * To prevent worsening of your condition and complications * To maintain your health at the optimal level Directions to meet your goals Take your medications as prescribed Follow your dietary instruction Follow activity as directed Keep your appointments as scheduled Take your immunizations and boosters as scheduled If your symptoms worsen call your PCP, if no PCP go to Urgent Care Center or Emergency Room For 04/09 questions related to your inpatient stay or results of tests pending at discharge, please contact Dr. Parker eWbb at Smoking is Dangerous to Your Health. Avoid second hand smoking Parker Webb MD Apr 17, 2016 10:11
[2016-04-17] MEDS ORDERED: ZYPR5TAB PO (13:08)
[2016-04-17] MEDS ORDERED: CLON0.5T PO (13:08)
[2016-04-17] MEDS ORDERED: DEPA500T PO (13:08)
--- NOTE | 2016-04-19 07:19 | EKG ---
Date Performed: 04/12/2016 Time Performed: 00:02:16 PTAGE: 61 years EKG: Sinus rhythm NORMAL ECG PREVIOUS TRACING : 04/11/2016 21.07 DOCTOR: Thompson Schwartz Interpretating Date/Time 04/19/2016 07:18:03
== END 2016-04-16 14:40 | disposition home or self-care (01) | DRG 885 ==
LOC: NEPC 01:46 → NEDA 15:47 → H260 19:47
PROVIDERS: ADMIT Psychiatry & Neurology Psychiatry; ATTEND Psychiatry & Neurology Psychiatry
DX: F31.9 Bipolar disorder, unspecified (principal); S09.90XA Unspecified injury of head, initial encounter; I10 Essential (primary) hypertension; F90.9 Attention-deficit hyperactivity disorder, unspecified type; E03.9 Hypothyroidism, unspecified; E87.6 Hypokalemia; F10.10 Alcohol abuse, uncomplicated; F41.0 Panic disorder [episodic paroxysmal anxiety]; J45.909 Unspecified asthma, uncomplicated; K21.9 Gastro-esophageal reflux disease without esophagitis; M77.30 Calcaneal spur, unspecified foot; W01.0XXA Fall on same level from slipping, tripping and stumbling without subsequent striking against object, initial encounter; Y92.002 Bathroom of unspecified non-institutional (private) residence as the place of occurrence of the external cause
CPT/HCPCS: 70450; 71010; 73100; 73600; 80048; 80053; 80061; 80164; 80307; 81001; 82550; 82552; 83036; 83735; 84443; 84484; 85007; 85025; 85027; 90686; 90732; 93005; 93880; 95819; Q2038

== ENCOUNTER 2016-09-17 11:26 | Inpatient (IN) | payer OTHER ==
[~2016-09-17] VITALS: Ht 160 cm; Wt 60.2 kg
[2016-09-17] VITALS (11 sets, daily range): BP systolic 95–142; BP diastolic 51–82; PULSE 59–82; RESP 16–22; TEMP 98.1–98.7; O2SAT 97–100
[~2016-09-17 11:26] MED LIST changes: -ALPR1 PO; +ASCO10003 PO; -CENTTAB9 PO; +CLON0.5T PO; +DEPA500T PO; +ERGO1CAP30 PO; -ERGO2000 PO; -KETO10 PO; +MULT-6 PO; -SARA10TA; -VITA500C PO; +ZYPR5TAB PO
[2016-09-17] MEDS ORDERED: SODIUM CHLOR 0.9% 1000 ML INJ 1,000 ML IV ONE (11:36)
--- NOTE | 2016-09-17 11:36 | PD ---
HPI Chief Complaint: overdose Time Seen by Provider: 11:35 Travel History International Travel<30 days: No Contact w/Intl Traveler<30days: No History of Present Illness HPI 61 y/o female brought in by EMS status post overdose. Patient has history of chronic back pain and bipolar depression. There is reportedly the patient took her weeks worth of Depakote, Zyprexa, and Lunesta sometime last evening. Her found the patient unresponsive and called EMS. EMS responded and patient was arousable to painful stimuli, and given 1 L of normal saline fluid while signs showed hypotension when they first arrived with blood pressure of 70/48, this is improved with saline bolus. O2 sat is been maintained in the 100% on room air. Pulses stable at 74 bpm. Patient is arousable to verbal stimuli and knows her name, knows how she got to the hospital, and knows that she took her medications intentionally was morning. She has multiple allergies including Carafate, ciprofloxacin, contrast media, iodine, neomycin, penicillin, vancomycin, and Zofran. PFSH Past Medical History Medical History: Unable to Obtain Anxiety: Yes Depression: Yes Heart Rhythm Problems: No Cancer: No Cardiovascular Problems: No High Cholesterol: No Chest Pain: No Congestive Heart Failure: No Diabetes: No Diminished Hearing: No Endocrine: Yes Gastrointestinal Disorders: Yes (MULTIPLE SURGERIES FOR RUPTURED APPY/REPAIR/ PERITONITIS/WOUND VAC) GERD: Yes Genitourinary: No Hepatitis: No Hiatal Hernia: Yes Hypertension: Yes Immune Disorder: No Musculoskeletal: No Neurologic: No Psychiatric: Yes (ANXIETY,DEPRESSION/INSOMNIA) Reproductive: No Respiratory: Yes (ASTHMA-EXERCISE INDUCED) Immunizations Current: Yes Thyroid Disease: Yes (HYPOTHYROIDISM) Ulcer: No Menopausal: Yes : 2 Para: 2 Miscarriage: 0 : 0 Past Surgical History Abdominal Surgery: Yes (ILEOSTOMY/MULTI ABD SURGERIES/WOUND VAC/ROCIO) AICD: No Appendectomy: Yes (with ileostomy for 6 mths trachea 6 mths) Cardiac Surgery: No Cholecystectomy: Yes Ear Surgery: No Endocrine Surgery: No Eye Surgery: No Genitourinary Surgery: No Gynecologic Surgery: No Joint Replacement: No Oral Surgery: Yes (TRACHEOSTOMY) Pacemaker: No Thoracic Surgery: No Other Surgery: Yes Social History Alcohol Use: No Tobacco Use: No Substance Use: Yes Allergies-Medications (Allergen,Severity, Reaction): Coded Allergies: Ciprofloxacin (Verified Allergy, Severe, FABIENNE'S SYNDROME, 09/17/16) Contrast Media (Verified Allergy, Severe, FABIENNE'S SYNDROME, 09/17/16) Iodine (Verified Allergy, Severe, FABIENNE'S SYNDROME, 09/17/16) Neomycin (Verified Allergy, Severe, FABIENNE'S SYNDROME, 09/17/16) Penicillin (Verified Allergy, Severe, FABIENNE'S SYNDROME, 09/17/16) Sucralfate (Verified Allergy, Severe, Rash, 09/17/16) Vancomycin (Verified Allergy, Severe, FABIENNE'S SYNDROME, 09/17/16) Zofran (Verified Allergy, Severe, HIVES, 09/17/16) Carafate (Verified Allergy, Unknown, 09/17/16) Reported Meds & Prescriptions Reported Meds & Active Scripts Active Reported Xanax (Alprazolam) 0.5 Mg Tab 0.5 Mg PO BID PRN Vitamin C (Ascorbic Acid) 1,000 Mg Tablet.er 1,000 Mg PO DAILY Centrum Silver Adult 50+ (Multiple Vitamins W/ Minerals) 1 Tab Tab 1 Tab PO DAILY Diphenhydramine (Diphenhydramine HCl) 25 Mg Cap 50 Mg PO HS Eszopiclone 3 Mg Tab 3 Mg PO HS Lisinopril 2.5 Mg Tab 2.5 Mg PO HS Depakote DR (Divalproex Sodium) 500 Mg Tabdr 500 Mg PO HS Zyprexa (Olanzapine) 5 Mg Tab 5 Mg PO HS Levothyroxine (Levothyroxine Sodium) 88 Mcg Tab 88 Mcg PO DAILY Ergocalciferol 50,000 Unit Cap 50,000 Units PO SUN/THURS Amlodipine (Amlodipine Besylate) 2.5 Mg Tab 2.5 Mg PO DAILY Review of Systems ROS Limitations: Clinical Condition, Altered Mental Status General / Constitutional: No: Fever Eyes: No: Visual changes HENT: No: Headaches Cardiovascular: No: Chest Pain or Discomfort Respiratory: No: Shortness of Breath Gastrointestinal: No: Abdominal Pain Genitourinary: No: Dysuria Musculoskeletal: No: Pain Skin: No Rash Neurologic: No: Weakness Psychiatric: No: Depression Endocrine: No: Polydipsia Hematologic/Lymphatic: No: Easy Bruising Physical Exam Narrative GENERAL: Patient is obtunded but arousable to verbal stimuli, and appears oriented with questioning SKIN: Warm and dry. Mild pallor. Normal turgor. HEAD: Atraumatic. Normocephalic. EYES: Pupils equal and round. Pupils show 3 mm pupils bilaterally with reaction to light. No scleral icterus. No injection or drainage. ENT: No nasal bleeding or discharge. Mucous membranes pink and moist. Pharynx is currently clear. Airway is patent. Patient is maintaining her airway currently. NECK: Trachea midline. Supple and nontender. CARDIOVASCULAR: Regular rate and rhythm. No murmurs gallops or rubs. RESPIRATORY: No accessory muscle use. Clear to auscultation. Breath sounds equal bilaterally. GASTROINTESTINAL: Abdomen soft, non-tender, nondistended. Hepatic and splenic margins not palpable. MUSCULOSKELETAL: Extremities without clubbing, cyanosis, or edema. No obvious deformities. NEUROLOGICAL: Decreased level of awareness oriented with verbal questioning at this time. No obvious cranial nerve deficits. Motor grossly within normal limits. Five out of 5 muscle strength in the arms and legs. Normal speech. PSYCHIATRIC: Admits to suicidal ideation. Data Data Last Documented VS Vital Signs Date Time Temp Pulse Resp B/P Pulse Ox O2 Delivery O2 Flow Rate FiO2 09/17/16 12:33 82 22 142/64 100 Room Air 09/17/16 12:30 98.7 Orders Electrocardiogram (09/17/16 11:36) Complete Blood Count With Diff (09/17/16 11:36) Comprehensive Metabolic Panel (09/17/16 11:36) Prothrombin Time / Inr (Pt) (09/17/16 11:36) Act Partial Throm Time (Ptt) (09/17/16 11:36) Osmolality,Serum (09/17/16 11:36) Urinalysis - C+S If Indicated (09/17/16 11:36) Chest, Single Ap (09/17/16 11:36) Iv Access Insert/Monitor (09/17/16 11:36) Cath For Specimen (09/17/16 11:36) Ecg Monitoring (09/17/16 11:36) Oximetry (09/17/16 11:36) Oxygen Administration (09/17/16 11:36) Psych Screen (09/17/16 11:36) Sodium Chloride 0.9% Flush (Ns Flush) (09/17/16 11:45) Sodium Chlor 0.9% 1000 Ml Inj (Ns 1000 M (09/17/16 11:36) Drug Screen, Random Urine (09/17/16 11:36) Salicylates (Aspirin) (09/17/16 11:36) Tylenol (Acetaminophen) (09/17/16 11:36) Ammonia (09/17/16 11:47) Valproic Acid (Depakene) (09/17/16 11:47) Electrocardiogram (09/17/16 ) Labs Laboratory Tests Test 09/17/16 09/17/16 12:30 12:35 White Blood Count 6.2 TH/MM3 Red Blood Count 4.12 MIL/MM3 Hemoglobin 12.3 GM/DL Hematocrit 37.7 % Mean Corpuscular Volume 91.6 FL Mean Corpuscular Hemoglobin 29.8 PG Mean Corpuscular Hemoglobin 32.6 % Concent Red Cell Distribution Width 13.7 % Platelet Count 189 TH/MM3 Mean Platelet Volume 8.2 FL Neutrophils (%) (Auto) 52.1 % Lymphocytes (%) (Auto) 42.7 % Monocytes (%) (Auto) 4.1 % Eosinophils (%) (Auto) 0.9 % Basophils (%) (Auto) 0.2 % Neutrophils # (Auto) 3.2 TH/MM3 Lymphocytes # (Auto) 2.7 TH/MM3 Monocytes # (Auto) 0.3 TH/MM3 Eosinophils # (Auto) 0.1 TH/MM3 Basophils # (Auto) 0.0 TH/MM3 CBC Comment DIFF FINAL Differential Comment Urine Color YELLOW Urine Turbidity CLEAR Urine pH 6.5 Urine Specific [place] 1.011 Urine Protein NEG mg/dL Urine Glucose (UA) NEG mg/dL Urine Ketones NEG mg/dL Urine Occult Blood NEG Urine Nitrite NEG Urine Bilirubin NEG Urine Urobilinogen LESS THAN 2.0 MG/DL Urine Leukocyte Esterase MOD Urine RBC 1 /hpf Urine WBC 5 /hpf Urine Squamous Epithelial 1 /hpf Cells Urine Bacteria RARE /hpf Urine Mucus FEW /lpf Microscopic Urinalysis Comment CULT NOT INDICATED Urine Opiates Screen NEG Urine Barbiturates Screen NEG Urine Amphetamines Screen NEG Urine Benzodiazepines Screen NEG Urine Cocaine Screen NEG Urine Cannabinoids Screen NEG MDM Medical Decision Making Medical Screen Exam Complete: Yes Emergency Medical Condition: Yes Medical Record Reviewed: Yes Differential Diagnosis Intentional overdose. Suicidal ideation. History of bipolar disorder. Narrative Course Patient is stable in terms of her vitals at time of exam. Patient is arousable to verbal stimuli and appears oriented. Poison control is called and patient is discussed. EKG and chest x-ray is ordered. IV access is maintained patient is given another liter of saline normal saline IV. Labs ordered including CBC, CMP, urinalysis, urine drug screen, valproic acid level, ammonia level, salicylate level, and Tylenol level. Patient is discussed with Dr. Cochran who examined the patient as well. Urine drug screen is negative. Condition: Stable Sami Schulz Sep 17, 2016 11:36
[2016-09-17] MEDS ORDERED: SODIUM CHLORIDE 0.9% FLUSH 10 ML FLUSH IVF PRN (11:45)
--- NOTE | 2016-09-17 12:07 | RADRPT ---
EXAM DATE/TIME: 09/17/2016 11:50 [facility] COMPARISON: CHEST SINGLE AP, April 11, 2016, 18:17. INDICATIONS : Syncope MEDICAL HISTORY : Hypothyroidism. SURGICAL HISTORY : Cholecystectomy. tracheostomy and ileostomy ENCOUNTER: Initial ACUITY: 1 day PAIN SCORE: Non-responsive. LOCATION: chest FINDINGS: Rotated and underinflated AP view of the chest demonstrates a normal-sized cardiac silhouette. Linear opacity is present the left lung base likely representing atelectasis. No effusion, consolidation, o r pneumothorax is visualized. Bones and soft tissues demonstrate no acute finding. CONCLUSION: Underinflated examination with atelectasis at the left lung base. Otherwise, no acute finding is iden tified. Kenroy Segovia MD on September 17, 2016 at 12:05 Board Certified Radiologist. This report was verified electronically.
[2016-09-17] MEDS ORDERED: DIPH25CA PO (12:39)
[2016-09-17] MEDS ORDERED: LISI2.5T3 PO (12:39)
[2016-09-17] MEDS ORDERED: DEPA500T PO (12:39)
[2016-09-17] MEDS ORDERED: ESZO1TAB4 PO (12:39)
[2016-09-17] MEDS ORDERED: ZYPR5TAB PO (12:39)
[2016-09-17] MEDS ORDERED: ASCO100016 PO (12:40)
[2016-09-17] MEDS ORDERED: MULT1TAB PO (12:40)
[2016-09-17] MEDS ORDERED: ALPR.5 PO (12:41)
[2016-09-17 13:12] LABS: BACTERIA, URINE RARE /hpf; BLOOD, URINE NEG (NEG); COMMENT (UR) CULT NOT INDICATED; CULTURE IF INDICATED CULT NOT INDICATED; GLUCOSE,URINE NEG (NEG); KETONE, URINE NEG (NEG); MUCUS URINE FEW /lpf (OCC); NITRITE,URINE NEG (NEG); PH, URINE 6.5 (5.0-8.5); SQUAMOUS EPITHELIAL CELL URINE 1 /hpf (0-5); URINE COLOR YELLOW (YELLW/STRAW)
[2016-09-17 13:16] LABS: AMPHETAMINE, URINE NEG (NEG); BARBITURATES, URINE NEG (NEG); COCAINE, URINE NEG (NEG)
[2016-09-17 13:19] LABS: AUTOMATED NEUTROPHIL # 3.2 TH/MM3 (1.8-7.7); BASOPHIL % 0.2 % (0.0-2.0); EOSINOPHIL # 0.1 TH/MM3 (0-0.4); EOSINOPHIL % 0.9 % (0.0-4.0); HEMATOCRIT 37.7 % (35.0-46.0); HEMO FLAGS DIFF FINAL; LYMPH % 42.7 % (9.0-44.0); LYMPHOCYTE # 2.7 TH/MM3 (1.0-4.8); MEAN CELL VOLUME 91.6 FL (80.0-100.0); MEAN CORPUSCULAR HEMOGLOBIN 29.8 PG (27.0-34.0); MEAN CORPUSCULAR HGB CONC 32.6 % (32.0-36.0); MONO % 4.1 % (0.0-8.0); NEUT % 52.1 % (16.0-70.0); PLATELET COUNT 189 TH/MM3 (150-450); RED BLOOD COUNT 4.12 MIL/MM3 (4.00-5.30); RED CELL DISTRIBUTION WIDTH 13.7 % (11.6-17.2); WHITE BLOOD COUNT 6.2 TH/MM3 (4.0-11.0)
[2016-09-17 13:28] LABS: APTT (PATIENT) 23.9 SEC (24.3-30.1); INTERNATIONAL NORMALIZED RATIO 1.1 RATIO; PROTHROMBIN TIME - PATIENT 11.8 SEC (9.8-11.6)
--- NOTE | 2016-09-17 13:28 | PD ---
Data Data Last Documented VS Vital Signs Date Time Temp Pulse Resp B/P Pulse Ox O2 Delivery O2 Flow Rate FiO2 09/17/16 12:33 82 22 142/64 100 Room Air 09/17/16 12:30 98.7 Orders Electrocardiogram (09/17/16 11:36) Complete Blood Count With Diff (09/17/16 11:36) Comprehensive Metabolic Panel (09/17/16 11:36) Prothrombin Time / Inr (Pt) (09/17/16 11:36) Act Partial Throm Time (Ptt) (09/17/16 11:36) Osmolality,Serum (09/17/16 11:36) Urinalysis - C+S If Indicated (09/17/16 11:36) Chest, Single Ap (09/17/16 11:36) Iv Access Insert/Monitor (09/17/16 11:36) Cath For Specimen (09/17/16 11:36) Ecg Monitoring (09/17/16 11:36) Oximetry (09/17/16 11:36) Oxygen Administration (09/17/16 11:36) Psych Screen (09/17/16 11:36) Sodium Chloride 0.9% Flush (Ns Flush) (09/17/16 11:45) Sodium Chlor 0.9% 1000 Ml Inj (Ns 1000 M (09/17/16 11:36) Drug Screen, Random Urine (09/17/16 11:36) Salicylates (Aspirin) (09/17/16 11:36) Tylenol (Acetaminophen) (09/17/16 11:36) Ammonia (09/17/16 11:47) Valproic Acid (Depakene) (09/17/16 11:47) Electrocardiogram (09/17/16 ) Labs Laboratory Tests Test 09/17/16 09/17/16 12:30 12:35 White Blood Count 6.2 TH/MM3 Red Blood Count 4.12 MIL/MM3 Hemoglobin 12.3 GM/DL Hematocrit 37.7 % Mean Corpuscular Volume 91.6 FL Mean Corpuscular Hemoglobin 29.8 PG Mean Corpuscular Hemoglobin 32.6 % Concent Red Cell Distribution Width 13.7 % Platelet Count 189 TH/MM3 Mean Platelet Volume 8.2 FL Neutrophils (%) (Auto) 52.1 % Lymphocytes (%) (Auto) 42.7 % Monocytes (%) (Auto) 4.1 % Eosinophils (%) (Auto) 0.9 % Basophils (%) (Auto) 0.2 % Neutrophils # (Auto) 3.2 TH/MM3 Lymphocytes # (Auto) 2.7 TH/MM3 Monocytes # (Auto) 0.3 TH/MM3 Eosinophils # (Auto) 0.1 TH/MM3 Basophils # (Auto) 0.0 TH/MM3 CBC Comment DIFF FINAL Differential Comment Urine Color YELLOW Urine Turbidity CLEAR Urine pH 6.5 Urine Specific [place] 1.011 Urine Protein NEG mg/dL Urine Glucose (UA) NEG mg/dL Urine Ketones NEG mg/dL Urine Occult Blood NEG Urine Nitrite NEG Urine Bilirubin NEG Urine Urobilinogen LESS THAN 2.0 MG/DL Urine Leukocyte Esterase MOD Urine RBC 1 /hpf Urine WBC 5 /hpf Urine Squamous Epithelial 1 /hpf Cells Urine Bacteria RARE /hpf Urine Mucus FEW /lpf Microscopic Urinalysis Comment CULT NOT INDICATED Urine Opiates Screen NEG Urine Barbiturates Screen NEG Urine Amphetamines Screen NEG Urine Benzodiazepines Screen NEG Urine Cocaine Screen NEG Urine Cannabinoids Screen NEG MDM Supervised Visit with DELVIN: Yes Narrative Course The history, exam, and medical decision-making in the associated mid-level provider note were completed with my assistance. I reviewed and agree with the findings presented. I attest that I had a [id number] encounter with the patient on the same day, and personally performed and documented my assessment and findings in the medical record. *My assessment and Findings: 58 year-old woman intentional polysubstance ingestion with likely Depakote Zyprexa when asked to. Happened throughout the evening. Patient is very somnolent but able be aroused and awakened. She states that she took the medications intentionally to kill her self. States she was found by her who she knew was home. She has no complaints. We'll speak with poison control. We'll check levels, labs, EKG, check for other coingestions, patient was admitted to the hospital for psychiatric evaluation and medical monitoring. Condition: Stable Thompson Brennan MD Sep 17, 2016 13:28
[2016-09-17 13:37] LABS: ALT (GPT) 13 U/L (10-53); ANION GAP 10 MEQ/L (5-15); AST (GOT) 13 U/L (15-37); BICARBONATE 23.8 MEQ/L (21.0-32.0); BLOOD UREA NITROGEN 16 MG/DL (7-18); CHLORIDE 109 MEQ/L (98-107); GLOMERULAR FILTRATION RATE 82 ML/MIN (>89); POTASSIUM 3.5 MEQ/L (3.5-5.1); SODIUM (NA) 143 MEQ/L (136-145)
[2016-09-17 13:39] LABS: ACETAMINOPHEN 2.7 MCG/ML (10.0-30.0); ALKALINE PHOSPHATASE 40 U/L (45-117); TOTAL BILIRUBIN ADULT 0.5 MG/DL (0.2-1.0)
[2016-09-17] MEDS ORDERED: LACTULOSE SYRUP 20 GM/30 ML CUP PO PRN (15:30)
[2016-09-17] MEDS ORDERED: SODIUM PHOSPHATE INJ 30 MMOL in SODIUM CHLOR 0.9% 250 ML INJ 240 ML IV PRN (15:30)
[2016-09-17] MEDS ORDERED: POTASSIUM CHLOR 20 MEQ PREMIX 100 ML IV PRN ×2 (15:30)
[2016-09-17] MEDS ORDERED: PROCHLORPERAZINE 25 MG SUPP RECTAL PRN (15:30)
[2016-09-17] MEDS ORDERED: POTASSIUM CHLORIDE 25 MEQ EFFERVESCENT TAB PO PRN (15:30)
[2016-09-17] MEDS ORDERED: MAGNESIUM SULFATE INJ 4 GM in SODIUM CHLORIDE 0.9% INJ 92 ML IV PRN (15:30)
[2016-09-17] MEDS ORDERED: BISACODYL 10 MG SUPP RECTAL PRN (15:30)
[2016-09-17] MEDS ORDERED: MAGNESIUM HYDROXIDE SUSP 30 ML CUP PO PRN (15:30)
[2016-09-17] MEDS ORDERED: SODIUM CHLORIDE 0.9% FLUSH 10 ML FLUSH IV FLUSH PRN (15:30)
[2016-09-17] MEDS ORDERED: traMADol HCL 50 MG TAB PO PRN (15:30)
[2016-09-17] MEDS ORDERED: SENNOSIDES 8.6 MG TAB PO PRN (15:30)
[2016-09-17] MEDS ORDERED: MAGNESIUM OXIDE 400 MG TAB PO PRN (15:30)
[2016-09-17] MEDS ORDERED: NALOXONE HCL 0.4 MG/ML AMP IV PRN (15:30)
[2016-09-17] MEDS ORDERED: POTASSIUM PHOSPHATE MONOBASIC 500 MG TAB PO/TUBE PRN (15:30)
[2016-09-17] MEDS ORDERED: POTASSIUM CHLOR 40 MEQ PREMIX 100 ML IV PRN ×2 (15:30)
[2016-09-17] MEDS ORDERED: POTASSIUM PHOSPHATE INJ 30 MMOL in SODIUM CHLOR 0.9% 250 ML INJ 250 ML IV PRN (15:30)
[2016-09-17] MEDS ORDERED: MAGNESIUM SULFATE INJ 2 GM in SODIUM CHLORIDE 0.9% INJ 96 ML IV PRN (15:30)
[2016-09-17] MEDS ORDERED: METOCLOPRAMIDE HCL 10 MG/2 ML VIAL IV PUSH PRN (15:30)
[2016-09-17] MEDS ORDERED: POTASSIUM PHOSPHATE MONOBASIC 500 MG TAB PO PRN (15:30)
--- NOTE | 2016-09-17 15:51 | HHI.HP ---
[facility] Service [place] [facility] Primary Care Physician Non-Staff Admission Diagnosis Overdose/Suicidal Diagnoses: (1) Depressive disorder Diagnosis: Principal (2) HTN (hypertension) Diagnosis: Principal (3) Bipolar disorder, curr episode manic w/o psychotic features, moderate Diagnosis: Principal (4) Hypomania Diagnosis: Principal (5) Overdose Diagnosis: Secondary (6) Hypothyroidism Diagnosis: Principal (7) GERD (gastroesophageal reflux disease) Diagnosis: Principal (8) Back pain, chronic Diagnosis: Principal (9) Insomnia Diagnosis: Principal Chief Complaint: Overdose Travel History International Travel<30 Days: No Contact w/Intl Traveler <30 Da: No Traveled to Known Affected Are: No History of Present Illness Mrs. Mon is a 61-year-old female with a known medical history of chronic back pain and bipolar depression who was brought in via [facility] with overdose. Reportedly patient states she has been limited to what she can do at home, with worsening depression and last evening decided to take a weeks worth of her prescription medications stating she did not want to live anymore. Per , patient was unresponsive at the time of overdose and [facility] immediately called. Patient seen and examined in ED, awakens to voice and oriented. Displays current apparent hopelessness. Denies any recent illness including fever, chills, cough, chest pain, shortness of breath, abdominal pain, nausea, vomiting, diarrhea or dysuria. Patient PCP is Dr. Salguero. Psychologist is Dr. Terry. Most recent admission to the psychiatry unit was in March [address] Ingram. At that time patient had stopped taking her medications believing they were exacerbating her past abdominal surgery and abdominal pain, and had bouts of loosening associations, disorganized speech and tangentiality. Poison control was contacted due to the medications that she overdosed on. Needs to have multiple levels of Depakote Depakene So far these are stable. Patient will be admitted in PCU--patient is still [place] acted She will need to be followed by psychiatry and will probably need an inpatient admission after this one Review of Systems Constitutional: COMPLAINS OF: Fatigue, DENIES: Diaphoretic episodes, Fever, Chills Endocrine: DENIES: Abnorml menstrual pattern, Heat/cold intolerance Eyes: DENIES: Diplopia, Eye pain, Vision loss Ears, nose, mouth, throat: DENIES: Hearing loss, Throat pain, Hoarseness Respiratory: DENIES: Cough, Sputum production, Shortness of breath Cardiovascular: DENIES: Chest pain, Palpitations, Dyspnea on Exertion Gastrointestinal: DENIES: Constipation, Nausea, Vomiting Genitourinary: DENIES: Hematuria Musculoskeletal: COMPLAINS OF: Back pain, Neck pain, DENIES: Muscle aches Integumentary: DENIES: Rash Hematologic/lymphatic: DENIES: Lymphadenopathy Immunologic/allergic: DENIES: Eczema Neurologic: DENIES: Localized weakness Psychiatric: COMPLAINS OF: Anxiety, Mood changes, Depression Except as stated in HPI: all other systems reviewed are Neg Past Family Social History Past Medical History Anxiety Depression GERD Hypertension Insomnia Exercised induced asthma Hypothyroidism History of alcoholism, has stopped drinking many years ago. Past Surgical History Cholecystectomy Previous abdominal surgery due to ruptured appendicitis with wound vac history, ileostomy x 6 months and tracheostomy x 6 months. Reported Medications Reported Meds & Active Scripts Active Reported Xanax (Alprazolam) 0.5 Mg Tab 0.5 Mg PO BID PRN Vitamin C (Ascorbic Acid) 1,000 Mg Tablet.er 1,000 Mg PO DAILY Centrum Silver Adult 50+ (Multiple Vitamins W/ Minerals) 1 Tab Tab 1 Tab PO DAILY Diphenhydramine (Diphenhydramine HCl) 25 Mg Cap 50 Mg PO HS Eszopiclone 3 Mg Tab 3 Mg PO HS Lisinopril 2.5 Mg Tab 2.5 Mg PO HS Depakote DR (Divalproex Sodium) 500 Mg Tabdr 500 Mg PO HS Zyprexa (Olanzapine) 5 Mg Tab 5 Mg PO HS Levothyroxine (Levothyroxine Sodium) 88 Mcg Tab 88 Mcg PO DAILY Ergocalciferol 50,000 Unit Cap 50,000 Units PO SUN/THURS Amlodipine (Amlodipine Besylate) 2.5 Mg Tab 2.5 Mg PO DAILY Allergies: Coded Allergies: Ciprofloxacin (Verified Allergy, Severe, FABIENNE'S SYNDROME, 09/17/16) Contrast Media (Verified Allergy, Severe, FABIENNE'S SYNDROME, 09/17/16) Iodine (Verified Allergy, Severe, FABIENNE'S SYNDROME, 09/17/16) Neomycin (Verified Allergy, Severe, FABIENNE'S SYNDROME, 09/17/16) Penicillin (Verified Allergy, Severe, FABIENNE'S SYNDROME, 09/17/16) Sucralfate (Verified Allergy, Severe, Rash, 09/17/16) Vancomycin (Verified Allergy, Severe, FABIENNE'S SYNDROME, 09/17/16) Zofran (Verified Allergy, Severe, HIVES, 09/17/16) Carafate (Verified Allergy, Unknown, 09/17/16) Active Ordered Medications Current Medications Medications (Trade) Dose Ordered Sig/Carisa Route Start Time Stop Time Status Last Admin Sodium Chloride 2 ml 2 ml UNSCH PRN IVF 09/17/16 11:45 (NS 1000 ml Inj) 1,000 ml @ 100 mls/hr Q10H IV 09/17/16 15:26 UNV (NS Flush) 2 ml UNSCH PRN IV FLUSH 09/17/16 15:30 UNV (NS Flush) 2 ml BID IV FLUSH 09/17/16 21:00 UNV (Tylenol) 650 mg Q4H PRN PO 09/17/16 15:30 UNV (Reglan Inj) 5 mg Q6H PRN IV PUSH 09/17/16 15:30 UNV (Compazine Supp) 25 mg Q12H PRN IA 09/17/16 15:30 UNV (Lovenox Inj) 40 mg Q24H SQ 09/17/16 15:30 UNV (Ultram) 50 mg Q4H PRN PO 09/17/16 15:30 UNV (Narcan Inj) 0.4 mg UNSCH PRN IV 09/17/16 15:30 UNV (Nancy-Colace) 1 tab BID PO 09/17/16 21:00 UNV (Milk Of Magnesia Liq) 30 ml Q12H PRN PO 09/17/16 15:30 UNV (Senokot) 17.2 mg Q12H PRN PO 09/17/16 15:30 UNV (Dulcolax Supp) 10 mg DAILY PRN RECTAL 09/17/16 15:30 UNV Lactulose 30 ml 30 ml DAILY PRN PO 09/17/16 15:30 UNV Potassium Chloride 100 ml @ 50 mls/hr Q2H PRN IV 09/17/16 15:30 UNV (KCl 20 Meq Premix Inj) 100 ml @ 50 mls/hr Q2H PRN IV 09/17/16 15:30 UNV Potassium Bicarb/ Potassium Chloride 50 meq 50 meq UNSCH PRN PO 09/17/16 15:30 UNV Potassium Chloride 100 ml @ 25 mls/hr UNSCH PRN IV 09/17/16 15:30 UNV Potassium Chloride 100 ml @ 50 mls/hr Q2H PRN IV 09/17/16 15:30 UNV (Magnesium Sulfate Inj/NS Inj) 100 ml @ 50 mls/hr UNSCH PRN IV 09/17/16 15:30 UNV Magnesium Oxide 800 mg 800 mg UNSCH PRN PO 09/17/16 15:30 UNV (Magnesium Sulfate Inj/NS Inj) 100 ml @ 50 mls/hr UNSCH PRN IV 09/17/16 15:30 UNV Potassium Phosphate 2000 mg 2,000 mg Q4H PRN PO 09/17/16 15:30 UNV (Sodium Phosphate Inj/NS 250 ml Inj) 250 ml @ 42 mls/hr UNSCH PRN IV 09/17/16 15:30 UNV Potassium Phosphate 2000 mg 2,000 mg UNSCH PRN PO/TUBE 09/17/16 15:30 UNV (Potassium Phosphate Inj/NS 250 ml Inj) 260 ml @ 42 mls/hr UNSCH PRN IV 09/17/16 15:30 UNV Family History Maternal family medical history significant for depression and mother at the age of 5454 years old of brain cancer. Paternal family medical history significant for CHF. Social History Patient is . Denies any current tobacco use. Denies any alcohol use. Denies any illicit drug use. Physical Exam Vital Signs Vital Signs Date Time Temp Pulse Resp B/P Pulse Ox O2 Delivery O2 Flow Rate FiO2 09/17/16 14:40 59 16 133/62 99 Room Air 09/17/16 13:33 69 16 95/51 97 Room Air 09/17/16 12:33 82 22 142/64 100 Room Air 09/17/16 12:30 98.7 82 16 135/82 100 Physical Exam GENERAL: Well-nourished, well-developed female patient lying in bed with eyes closed, awakens to voice, oriented, in no apparent distress. SKIN: No rashes, ecchymoses or lesions. Warm and dry. HEAD: Atraumatic. Normocephalic. Pupils equal round and reactive. Extraocular motions intact. No scleral icterus. No injection or drainage. Nose without bleeding. Airway patent. NECK: Trachea midline. No JVD. Supple. CARDIOVASCULAR: Regular rate and rhythm. No murmur appreciated. S1 and S2. No S3 or S4 no heave or thrill No rubs or gallops. RESPIRATORY: Clear to auscultation. Breath sounds equal bilaterally. No wheezes , rales, or rhonchi. GASTROINTESTINAL: Abdomen soft, non-tender, nondistended. No guarding. MUSCULOSKELETAL: Extremities without clubbing, cyanosis, or edema. No joint tenderness, effusion, or edema noted. NEUROLOGICAL: Awake and alert. Cranial nerves II through XII intact. Motor and sensory grossly within normal limits. Five out of 5 muscle strength in all muscle groups. Normal speech. PSYCHIATRIC: Hopelessness. Very depressed very lethargic at this time secondary to medications Laboratory Laboratory Tests Test 09/17/16 09/17/16 09/17/16 09/17/16 12:13 12:30 12:35 14:30 Ammonia 47 54 White Blood Count 6.2 Red Blood Count 4.12 Hemoglobin 12.3 Hematocrit 37.7 Mean Corpuscular Volume 91.6 Mean Corpuscular Hemoglobin 29.8 Mean Corpuscular Hemoglobin 32.6 Concent Red Cell Distribution Width 13.7 Platelet Count 189 Mean Platelet Volume 8.2 Neutrophils (%) (Auto) 52.1 Lymphocytes (%) (Auto) 42.7 Monocytes (%) (Auto) 4.1 Eosinophils (%) (Auto) 0.9 Basophils (%) (Auto) 0.2 Neutrophils # (Auto) 3.2 Lymphocytes # (Auto) 2.7 Monocytes # (Auto) 0.3 Eosinophils # (Auto) 0.1 Basophils # (Auto) 0.0 CBC Comment DIFF FINAL Differential Comment Prothrombin Time 11.8 Prothromb Time International 1.1 Ratio Activated Partial 23.9 Thromboplast Time Sodium Level 143 Potassium Level 3.5 Chloride Level 109 Carbon Dioxide Level 23.8 Anion Gap 10 Blood Urea Nitrogen 16 Creatinine 0.72 Estimat Glomerular Filtration 82 Rate Random Glucose 69 Serum Osmolality 304 Calcium Level 8.2 Total Bilirubin 0.5 Aspartate Amino Transf 13 (AST/SGOT) Alanine Aminotransferase 13 (ALT/SGPT) Alkaline Phosphatase 40 Total Protein 6.0 Albumin 3.2 Salicylates Level LESS THAN 1.7 Acetaminophen Level 2.7 Valproic Acid (Depakene) Level 142 107 Urine Color YELLOW Urine Turbidity CLEAR Urine pH 6.5 Urine Specific [place] 1.011 Urine Protein NEG Urine Glucose (UA) NEG Urine Ketones NEG Urine Occult Blood NEG Urine Nitrite NEG Urine Bilirubin NEG Urine Urobilinogen LESS THAN 2.0 Urine Leukocyte Esterase MOD Urine RBC 1 Urine WBC 5 Urine Squamous Epithelial 1 Cells Urine Bacteria RARE Urine Mucus FEW Microscopic Urinalysis Comment CULT NOT INDICATED Urine Opiates Screen NEG Urine Barbiturates Screen NEG Urine Amphetamines Screen NEG Urine Benzodiazepines Screen NEG Urine Cocaine Screen NEG Urine Cannabinoids Screen NEG Result Diagram: 09/17/16 1230 09/17/16 1230 Imaging Last Impressions Chest X-Ray 09/17/16 1136 Signed Impressions: Service Date/Time: Sunday, September 17, 2016 11:50 - CONCLUSION: Underinflated examination with atelectasis at the left lung base. Otherwise, no acute finding is identified. Kenroy Segovia MD Assessment and Plan Problem List: (1) Depressive disorder ICD Code: F32.9 Status: Acute (2) HTN (hypertension) ICD Code: I10 Status: Acute (3) Overdose ICD Code: T50.901A Status: Acute (4) Hypothyroidism ICD Code: E03.9 Status: Acute (5) GERD (gastroesophageal reflux disease) ICD Code: K21.9 Status: Acute (6) Back pain, chronic ICD Code: M54.9 Status: Acute (7) Insomnia ICD Code: G47.00 Status: Acute Assessment and Plan Mrs. Mon is a 61-year-old female with a known medical history of chronic back pain and bipolar depression who was brought in via [facility] with overdose. Reportedly patient states she has been limited to what she can do at home, with worsening depression and last evening decided to take a weeks worth of her prescription medications stating she did not want to live anymore. Depressive disorder with overdose: Will admit to step down unit for close monitoring of Depakote level, 142-->107. Follow trends Q6hr. Ammonia elevated 47 -->54. Lipid panel pending. Follow. Continue neuro checks. Sitter ordered. Supplemental O2 as needed to keep sats >92%. Psychiatry consulted, appreciate input. Hypertension, chronic: BP currently systolic 120's. Continue home Lisinopril and Norvasc. Monitor BP closely. Hypothyroidism, chronic: Continue home Levothyroxine. TSH ordered, follow. Chronic back pain: Tramadol 50 mg PO q4h PRN. DVT prophylaxis: SCDs/Lovenox 40 mg sq q24hr. The exam, history, and the medical decision-making described in the above note were completed with the assistance of the mid-level provider. I reviewed and agree with the findings presented. I attest that I had a guvg-[id number] encounter with the patient on the same day, and personally performed and documented my assessment and findings in the medical record. Physician Certification 2 Midnight Certification Type: Admission for Inpatient Services Order for Inpatient Services The services are ordered in accordance with Medicare regulations or non- Medicare payer requirements, as applicable. In the case of services not specified as inpatient-only, they are appropriately provided as inpatient services in accordance with the 2-midnight benchmark. Estimated LOS (days): 3 3 days is the estimated time the patient will need to remain in the hospital, assuming treatment plan goals are met and no additional complications. Post-Hospital Plan: Not yet determined Problem Qualifiers (1) Back pain, chronic: Merlene Nova Sep 17, 2016 15:51 Jacob Garduno DO Sep 17, 2016 16:57
[2016-09-17] MEDS: SODIUM CHLOR 0.9% 1000 ML INJ 1,000 ML IV SCH (16:24)
[2016-09-17] MEDS: ENOXAPARIN SODIUM 40 MG/0.4 ML SYRINGE SQ SCH (16:24)
[2016-09-17] MEDS ORDERED: MIDAZOLAM HCL 5 MG/ML VIAL (1 ML) IV PUSH ONE (16:30)
[2016-09-17] MEDS ORDERED: ROCURONIUM INJ 100 MG/10 ML VIAL IV ONE (16:30)
[2016-09-17] MEDS ORDERED: PILL SPLITTER OTHER PRN (17:15)
[2016-09-17 17:33] LABS: CREATINE KINASE 155 U/L (26-192)
[2016-09-17] MEDS: SODIUM CHLORIDE 0.9% FLUSH 10 ML FLUSH IV FLUSH SCH (21:00)
[2016-09-17] MEDS: DOCUSATE SODIUM 50 MG/SENNA 8.6 MG TAB PO SCH (21:00)
[2016-09-17] MEDS: LISINOPRIL 5 MG TAB PO SCH (21:00)
[2016-09-17 21:40] LABS: CREATINE KINASE 233 U/L (26-192)
[2016-09-17 21:52] LABS: CKMB 5.5 NG/ML (0.5-3.6)
[2016-09-18] VITALS (24 sets, daily range): BP systolic 119–162; BP diastolic 64–98; PULSE 51–98; RESP 16–18; TEMP 97.9–98.4; O2SAT 96–99
[2016-09-18] MEDS: SODIUM CHLOR 0.9% 1000 ML INJ 1,000 ML IV SCH ×3 (01:26→21:26)
[2016-09-18] MEDS: LEVOTHYROXINE SODIUM 88 MCG TAB PO SCH (06:16)
[2016-09-18] MEDS: SODIUM CHLORIDE 0.9% FLUSH 10 ML FLUSH IV FLUSH SCH ×2 (09:00→21:00)
[2016-09-18] MEDS: DOCUSATE SODIUM 50 MG/SENNA 8.6 MG TAB PO SCH ×2 (09:00→21:00)
[2016-09-18] MEDS: ERGOCALCIFEROL (VIT D2) 50,000 UNIT CAP PO SCH (09:00)
[2016-09-18] MEDS: MULTIVITAMINS/MINERALS THERAPEUTIC TAB PO SCH (09:07)
[2016-09-18] MEDS: ACETAMINOPHEN 325 MG TAB PO PRN ×3 (09:07→16:15)
[2016-09-18] MEDS: ASCORBIC ACID 500 MG TAB PO SCH (09:07)
[2016-09-18] MEDS: amLODIPine BESYLATE 5 MG TAB PO SCH (09:08)
[2016-09-18 09:27] LABS: AUTOMATED NEUTROPHIL # 3.3 TH/MM3 (1.8-7.7); BASOPHIL % 0.7 % (0.0-2.0); EOSINOPHIL # 0.1 TH/MM3 (0-0.4); HEMATOCRIT 39.9 % (35.0-46.0); HEMO FLAGS DIFF FINAL; LYMPH % 35.8 % (9.0-44.0); LYMPHOCYTE # 2.1 TH/MM3 (1.0-4.8); MEAN CELL VOLUME 89.2 FL (80.0-100.0); MEAN CORPUSCULAR HEMOGLOBIN 30.9 PG (27.0-34.0); MEAN CORPUSCULAR HGB CONC 34.7 % (32.0-36.0); NEUT % 54.5 % (16.0-70.0); PLATELET COUNT 199 TH/MM3 (150-450); RED BLOOD COUNT 4.48 MIL/MM3 (4.00-5.30); RED CELL DISTRIBUTION WIDTH 13.8 % (11.6-17.2)
--- NOTE | 2016-09-18 09:42 | HHI.PR ---
Subjective Remarks Pt states she feels well, she had a long talk w her and realizes that what she did was wrong. denies any suicidal thoughts or ideation. states she does need to f/u w psychologist and apparently has a psychiatrist she sees as an outpatient. she understands the consequences of her actions but feels that she is "on the road to recovery". She does want to speak w the psychiatrist. Objective Vitals Vital Signs Date Time Temp Pulse Resp B/P Pulse Ox O2 Delivery O2 Flow Rate FiO2 09/18/16 08:00 98.2 78 18 134/84 96 09/18/16 08:00 71 09/18/16 05:00 58 09/18/16 04:00 58 18 119/64 99 09/18/16 04:00 51 09/18/16 03:00 54 09/18/16 02:00 56 09/18/16 01:00 68 09/18/16 00:00 66 09/18/16 00:00 97.9 77 18 123/73 99 09/17/16 23:00 82 09/17/16 22:30 21 09/17/16 22:00 68 09/17/16 21:00 70 09/17/16 20:00 98.1 79 18 117/65 99 09/17/16 20:00 70 09/17/16 18:41 81 16 129/62 98 Room Air 09/17/16 16:25 61 17 121/60 99 Room Air 09/17/16 16:01 97 21 09/17/16 14:40 59 16 133/62 99 Room Air 09/17/16 13:33 69 16 95/51 97 Room Air 09/17/16 12:33 82 22 142/64 100 Room Air 09/17/16 12:30 98.7 82 16 135/82 100 I/O 09/17/16 09/17/16 09/17/16 09/18/16 09/18/16 09/18/16 07:00 15:00 23:00 07:00 15:00 23:00 Intake Total 360 ml Balance 360 ml Intake Oral 360 ml # Voids 5 Result Diagram: 09/18/16 0853 09/17/16 1230 Imaging Last Impressions Chest X-Ray 09/17/16 1136 Signed Impressions: Service Date/Time: Saturday, September 17, 2016 11:50 - CONCLUSION: Underinflated examination with atelectasis at the left lung base. Otherwise, no acute finding is identified. Kenroy Segovia MD Objective Remarks GENERAL: Well-nourished, well-developed female patient lying in bed. appears comfortable. SKIN: Warm and dry. HEAD: Extraocular motions intact. NECK: Trachea midline. CARDIOVASCULAR: Regular rate and rhythm. No murmur appreciated. RESPIRATORY: Clear to auscultation. Breath sounds equal bilaterally. No wheezes GASTROINTESTINAL: Abdomen soft, non-tender, nondistended. No guarding. MUSCULOSKELETAL: Extremities without edema. No joint tenderness, effusion, or edema noted. NEUROLOGICAL: Awake and alert. Cranial nerves II through XII intact. Motor and sensory grossly within normal limits. Normal speech. PSYCHIATRIC: appears alert today, smiling, answers questions appropriately. A/P Problem List: (1) Depressive disorder ICD Code: F32.9 Status: Acute (2) HTN (hypertension) ICD Code: I10 Status: Acute (3) Overdose ICD Code: T50.901A Status: Acute (4) Hypothyroidism ICD Code: E03.9 Status: Acute (5) GERD (gastroesophageal reflux disease) ICD Code: K21.9 Status: Acute (6) Back pain, chronic ICD Code: M54.9 Status: Acute (7) Insomnia ICD Code: G47.00 Status: Acute Assessment and Plan Mrs. Mon is a 61-year-old female with a known medical history of chronic back pain and bipolar depression who was brought in via [facility] with overdose. Reportedly patient states she has been limited to what she can do at home, with worsening depression and last evening decided to take a weeks worth of her prescription medications stating she did not want to live anymore. Depressive disorder with overdose: Psych consult in place. Today pt states that she is aware that her actions are wrong and would like to speak w psychiatrist. she feels that she also needs to see a psychologist. Depakote level, 142-->107- -> 84 (wnl). Follow trends Q6hr. Ammonia elevated 47-->54-->28 (wnl). Lipid panel pending. Sitter at bedside, continue until cleared by psych. Pt on room air and satting well. CBC today reviewed and wnl. BMP pending. Hypertension, chronic: BP controlled. Continue home Lisinopril and Norvasc. Monitor BP closely. Hypothyroidism, chronic: Continue home Levothyroxine. TSH ordered, follow. Chronic back pain: Tramadol 50 mg PO q4h PRN. DVT prophylaxis: SCDs/Lovenox 40 mg sq q24hr. Discharge Planning Pt alert and awake. Answering questions appropriately. Psych consult pending. awaiting final recs. Problem Qualifiers (1) Back pain, chronic: Nancy Mcfarland MD Sep 18, 2016 09:42
[2016-09-18 09:49] LABS: ANION GAP 8 MEQ/L (5-15); AST (GOT) 21 U/L (15-37); BLOOD UREA NITROGEN 10 MG/DL (7-18); CHLORIDE 111 MEQ/L (98-107); GLOMERULAR FILTRATION RATE 109 ML/MIN (>89); MAGNESIUM 2.1 MG/DL (1.5-2.5); POTASSIUM 3.4 MEQ/L (3.5-5.1); SODIUM (NA) 144 MEQ/L (136-145)
[2016-09-18 09:58] LABS: ALKALINE PHOSPHATASE 42 U/L (45-117); ALT (GPT) 15 U/L (10-53); FREE T4 1.32 NG/DL (0.76-1.46); HDL CHOLESTEROL 57.3 MG/DL (40.0-60.0); LDL CHOLESTEROL 80 MG/DL (0-99); TOTAL BILIRUBIN ADULT 0.7 MG/DL (0.2-1.0)
--- NOTE | 2016-09-18 12:40 | PD.PSY.CON ---
Provisional Diagnosis Admission Date Sep 17, 2016 at 15:29 [employer] I. Bipolar disorder type I, depressive episode [employer] II. Deferred [employer] III. GERD, HTN, hypothyroidism, [employer] IV. Third psychiatric hospitalization this year [employer] V. 35 History of Present Illness Service Psychiatry Consult Requested By Reason for Consult Overdose, suicidal ideation Primary Care Physician Non-Staff HPI The patient is a 61-year-old woman, domiciled with her in [place], retired, with psychiatric history of bipolar disorder, 3 previous psychiatric hospitalizations, she was hospitalized here in [place] in March 2016, she was admitted by me with a manic episode, established outpatient psychiatric care with Dr. Leary in [place], she is currently on Depakote 500 mg twice a day, olanzapine 10 mg, Xanax 1 mg 3 times a day, she has previous suicidal attempts, with a known medical history of chronic back pain, hypertension, GERD, hypothyroidism, who was brought in via [facility] with overdose. Reportedly patient states she has been limited to what she can do at home, with worsening depression and last evening decided to take a weeks worth of her prescription medications stating she did not want to live anymore. Per , patient was unresponsive at the time of overdose and [facility] immediately called. Patient seen and examined in ED, awakens to voice and oriented. On psychiatric evaluation today patient presents calm, superficially cooperative, distant, she reports that she has been depressed since February. She has been feeling that she has nothing to do at home, she has been downhill, unable to find a purpose in life. Patient says that her days at home establish making coffee, talking to live with her , but nothing to do the rest of the day. But denies she feels really depressed and sometimes she "hear the voice demons telling him to ". Patient reports increase hopelessness, helplessness, anhedonia, lo self steam, poor sleep at night, decreased concentration, and persistent suicidal thoughts. At this moment patient denies suicidal and homicidal ideation, she is requesting to be discharged back home, but definitely seems to be internally stimulated, with flat affect and superficial. Patient is oriented 3, no attention deficit, no gross cognitive impairment present. He reports good compliant with medications, no significant side effects, also compliant with psychiatric follow-up. She denies the use of alcohol and drugs. Review of Systems Constitutional: DENIES: Diaphoretic episodes, Fatigue, Fever, Weight gain, Weight loss, Chills, Dizziness, Change in appetite, Night Sweats Endocrine: DENIES: Abnorml menstrual pattern, Heat/cold intolerance, Polydipsia , Polyuria, Polyphagia Eyes: DENIES: Blurred vision, Diplopia, Eye inflammation, Eye pain, Vision loss , Photosensitivity, Double Vision Ears, nose, mouth, throat: DENIES: Tinnitus, Hearing loss, Vertigo, Nasal discharge, Oral lesions, Throat pain, Hoarseness, Ear Pain, Running Nose, Epistaxis, Sinus Pain, Toothache, Odynophagia Respiratory: DENIES: Apneas, Cough, Snoring, Wheezing, Hemoptysis, Sputum production, Shortness of breath Cardiovascular: DENIES: Chest pain, Palpitations, Syncope, Dyspnea on Exertion , PND, Lower Extremity Edema, Orthopnea, Claudication Gastrointestinal: DENIES: Abdominal pain, Black stools, Bloody stools, Constipation, Diarrhea, Nausea, Vomiting, Difficulty Swallowing, Anorexia Musculoskeletal: DENIES: Joint pain, Muscle aches, Stiffness, Joint Swelling, Back pain, Neck pain Integumentary: DENIES: Abnormal pigmentation, Pruritus, Rash, Nail changes, Breast masses, Breast skin changes, Nipple discharge Hematologic/lymphatic: DENIES: Bruising, Lymphadenopathy Immunologic/allergic: DENIES: Eczema, Urticaria Neurologic: DENIES: Abnormal gait, Headache, Localized weakness, Paresthesias, Seizures, Speech Problems, Tremor, Poor Balance Psychiatric: COMPLAINS OF: Confusion, Depression, Suicidal Ideation Past Family Social History Coded Allergies: Ciprofloxacin (Verified Allergy, Severe, FABIENNE'S SYNDROME, 09/17/16) Contrast Media (Verified Allergy, Severe, FABIENNE'S SYNDROME, 09/17/16) Iodine (Verified Allergy, Severe, FABIENNE'S SYNDROME, 09/17/16) Neomycin (Verified Allergy, Severe, FABIENNE'S SYNDROME, 09/17/16) Penicillin (Verified Allergy, Severe, FABIENNE'S SYNDROME, 09/17/16) Sucralfate (Verified Allergy, Severe, Rash, 09/17/16) Vancomycin (Verified Allergy, Severe, FABIENNE'S SYNDROME, 09/17/16) Zofran (Verified Allergy, Severe, HIVES, 09/17/16) Carafate (Verified Allergy, Unknown, 09/17/16) Reported Medications Alprazolam (Xanax)0.5 Mg Tab0.5 Mg PO BID PRN (ANXIETY) Ref 0 09/17/16 Ascorbic Acid (Vitamin C)1,000 Mg Tablet.er1,000 Mg PO DAILY 09/17/16 Multiple Vitamins W/ Minerals (Centrum Silver Adult 50+)1 Tab Tab1 Tab PO DAILY 09/17/16 Diphenhydramine 25 Mg Cap50 Mg PO HS Ref 0 09/17/16 Eszopiclone 3 Mg Tab3 Mg PO HS #30 TAB Ref 0 09/17/16 Lisinopril 2.5 Mg Tab2.5 Mg PO HS #30 TAB Ref 0 09/17/[address] (Depakote DR)500 Mg [id number] Mg PO HS #60 TAB Ref 0 09/17/16 Olanzapine (Zyprexa)5 Mg Tab5 Mg PO HS #30 TAB Ref 0 09/17/16 Levothyroxine 88 Mcg Tab88 Mcg PO DAILY #30 TAB Ref 0 04/07/16 Ergocalciferol 50,000 Unit Cap50,000 Units PO SUN/THURS #30 CAP Ref 0 04/07/16 Amlodipine 2.5 Mg Tab2.5 Mg PO DAILY #30 TAB Ref 0 04/07/16 Discontinued Reported Medications Zolpidem ER (Ambien CR)12.5 Mg Tab12.5 Mg PO HS PRN (INSOMNIA) Ref 0 04/07/16 Discontinued Scripts Clonazepam 0.5 Mg Tab0.5 Mg PO BID #60 TAB Ref 0 Prov:Parker Webb MD 04/17/16 Current Medications Medications (Trade) Dose Ordered Sig/Carisa Route Start Time Stop Time Status Last Admin Sodium Chloride 2 ml 2 ml UNSCH PRN IVF 09/17/16 11:45 (NS 1000 ml Inj) 1,000 ml @ 100 mls/hr Q10H IV 09/17/16 15:26 09/18/16 11:26 (NS Flush) 2 ml UNSCH PRN IV FLUSH 09/17/16 15:30 (NS Flush) 2 ml BID IV FLUSH 09/17/16 21:00 09/18/16 09:00 (Tylenol) 650 mg Q4H PRN PO 09/17/16 15:30 09/18/16 09:07 (Reglan Inj) 5 mg Q6H PRN IV PUSH 09/17/16 15:30 (Compazine Supp) 25 mg Q12H PRN RECTAL 09/17/16 15:30 (Lovenox Inj) 40 mg Q24H SQ 09/17/16 15:30 09/17/16 16:24 (Ultram) 50 mg Q4H PRN PO 09/17/16 15:30 (Narcan Inj) 0.4 mg UNSCH PRN IV 09/17/16 15:30 (Nancy-Colace) 1 tab BID PO 09/17/16 21:00 (Milk Of Magnesia Liq) 30 ml Q12H PRN PO 09/17/16 15:30 (Senokot) 17.2 mg Q12H PRN PO 09/17/16 15:30 (Dulcolax Supp) 10 mg DAILY PRN RECTAL 09/17/16 15:30 Lactulose 30 ml 30 ml DAILY PRN PO 09/17/16 15:30 Potassium Chloride 100 ml @ 50 mls/hr Q2H PRN IV 09/17/16 15:30 (KCl 20 Meq Premix Inj) 100 ml @ 50 mls/hr Q2H PRN IV 09/17/16 15:30 Potassium Bicarb/ Potassium Chloride 50 meq 50 meq UNSCH PRN PO 09/17/16 15:30 Potassium Chloride 100 ml @ 25 mls/hr UNSCH PRN IV 09/17/16 15:30 Potassium Chloride 100 ml @ 50 mls/hr Q2H PRN IV 09/17/16 15:30 (Magnesium Sulfate Inj/NS Inj) 100 ml @ 50 mls/hr UNSCH PRN IV 09/17/16 15:30 Magnesium Oxide 800 mg 800 mg UNSCH PRN PO 09/17/16 15:30 (Magnesium Sulfate Inj/NS Inj) 100 ml @ 50 mls/hr UNSCH PRN IV 09/17/16 15:30 Potassium Phosphate 2000 mg 2,000 mg Q4H PRN PO 09/17/16 15:30 (Sodium Phosphate Inj/NS 250 ml Inj) 250 ml @ 42 mls/hr UNSCH PRN IV 09/17/16 15:30 Potassium Phosphate 2000 mg 2,000 mg UNSCH PRN PO/TUBE 09/17/16 15:30 (Potassium Phosphate Inj/NS 250 ml Inj) 260 ml @ 42 mls/hr UNSCH PRN IV 09/17/16 15:30 (Norvasc) 2.5 mg DAILY PO 09/18/16 09:00 09/18/16 09:08 (Drisdol) 50,000 units DAILY PO 09/18/16 09:00 (Synthroid) 88 mcg DAILY@06 PO 09/18/16 06:00 09/18/16 06:16 (Vitamin C) 1,000 mg DAILY PO 09/18/16 09:00 09/18/16 09:07 (Prinivil) 2.5 mg HS PO 09/17/16 21:00 (Theragran M Tab) 1 tab DAILY PO 09/18/16 09:00 09/18/16 09:07 (Pill Splitter) 1 ea UNSCH PRN OTHER 09/17/16 17:15 Family History Patient has a brother who committed suicide Social History Patient was born and raised in [facility], she lives in [place] with , she has 2 daughters, she is retired, her highest level of education is college Patient's Strengths (min. 2) Support of her , establish outpatient care Physical Exam No tremors, no EPS, no stiffness, no psychomotor agitation or retardation, no gait disturbance Vital Signs Vital Signs Date Time Temp Pulse Resp B/P Pulse Ox O2 Delivery O2 Flow Rate FiO2 09/18/16 11:00 64 09/18/16 10:52 98 21 09/18/16 09:38 16 09/18/16 08:00 98.2 134/84 09/17/16 18:41 Room Air Mental Status Examination Appearance woman, age appearing, [facility], good hygiene, she is calm, superficially cooperative, a little bit oppositional. Speech: Hesitant Orientation: x3 Memory: Unremarkable Thought Process: Logical, Goal Directed, Linear Thought Content: Unremarkable Language Fluent and is spontaneous Fund of Knowledge Adequate for level of education Attention and Concentration: Good Suicidal Ideation: No Previous Suicide Attempts: Yes Homicidal Ideation: No Previous Homicide Attempts: No Judgment: WNL Affect: Sad Mood: Sad Motor Activity: Normal gait, Abnormal gait-specify Assessment & Plan Problem List: (1) Bipolar 1 disorder, depressed Assessment & Plan: On psychiatric evaluation today patient presents with worsening symptomatology of depression in the last 2 weeks to the point the patient tried to commit suicide by overdosing 2 days ago. Patient reports increasing in severity and intensity, sadness, anhedonia, hopelessness, sense of worthlessness, helplessness, low self-esteem, poor view of herself, increased sensitive to frustration and rejection, poor sleep, decreased capacity to concentrate, and persistent suicidal thoughts. Patient reports that she feels empty and she has lost the motivation to live. Patient also mentioned superficially that at night she has heard voices "of Demons" telling her to . Patient has recent suicidal attempts by overdosing, she was hospitalized with a manic episode in March here at [place]. Patient is an increased risk of suicidality at this moment. He psychiatric hospitalization for stabilization and safety. Patient needs to be transferred to psychiatry once medically stable. Continue sitter in the floor. Will restart Depakote 500 mg twice a day and olanzapine 5 mg twice a day. Collateral information from her is still pending. Extensive support, motivation and psychoeducation provided. ICD Code: F31.9 Assessment & Plan Estimated LOS: Gene Wright MD Sep 18, 2016 12:40
[2016-09-18] MEDS ORDERED: POTASSIUM CHLORIDE 20 MEQ CONTROLLED RELEASE TAB PO ONE (13:00)
[2016-09-18] MEDS: ENOXAPARIN SODIUM 40 MG/0.4 ML SYRINGE SQ SCH (15:23)
--- NOTE | 2016-09-18 16:39 | EKG ---
Date Performed: 09/17/2016 Time Performed: 12:47:14 PTAGE: 61 years EKG: Sinus rhythm NORMAL ECG PREVIOUS TRACING : 04/12/2016 14.05 Since previous tracing, no significant change noted DOCTOR: Marco Greene Interpretating Date/Time 09/18/2016 16:39:24
--- NOTE | 2016-09-18 16:40 | EKG ---
Date Performed: 09/17/2016 Time Performed: 14:20:31 PTAGE: 61 years EKG: Sinus rhythm NORMAL ECG PREVIOUS TRACING : 09/17/2016 12.47 Since previous tracing, no significant change noted DOCTOR: Marco Greene Interpretating Date/Time 09/18/2016 16:39:34
[2016-09-18 16:41] LABS: HEMOGLOBIN A1a 1.6 %; HEMOGLOBIN A1b 1.7 %; HEMOGLOBIN LA1C 1.7 %; HEMOGLOBIN P3 3.4 %
[2016-09-18] MEDS ORDERED: OLANZapine 5 MG TAB PO SCH (21:00)
[2016-09-18] MEDS ORDERED: DIVALPROEX DR 500 MG TABEC PO SCH (21:00)
[2016-09-18] MEDS ORDERED: diphenhydrAMINE HCL 25 MG CAP PO SCH (21:00)
[2016-09-18] MEDS: LISINOPRIL 5 MG TAB PO SCH (21:03)
[2016-09-19] VITALS (14 sets, daily range): BP systolic 139–153; BP diastolic 75–92; PULSE 55–81; RESP 16–18; TEMP 98–98.4; O2SAT 95–97
[2016-09-19] MEDS: ACETAMINOPHEN 325 MG TAB PO PRN (01:49)
[2016-09-19] MEDS: LEVOTHYROXINE SODIUM 88 MCG TAB PO SCH (05:22)
[2016-09-19] MEDS: SODIUM CHLOR 0.9% 1000 ML INJ 1,000 ML IV SCH (07:26)
[2016-09-19] MEDS: DOCUSATE SODIUM 50 MG/SENNA 8.6 MG TAB PO SCH ×2 (08:54→08:57)
[2016-09-19] MEDS: MULTIVITAMINS/MINERALS THERAPEUTIC TAB PO SCH (08:54)
[2016-09-19] MEDS: ERGOCALCIFEROL (VIT D2) 50,000 UNIT CAP PO SCH (08:54)
[2016-09-19] MEDS: ASCORBIC ACID 500 MG TAB PO SCH (08:55)
[2016-09-19] MEDS: amLODIPine BESYLATE 5 MG TAB PO SCH (08:55)
[2016-09-19] MEDS: SODIUM CHLORIDE 0.9% FLUSH 10 ML FLUSH IV FLUSH SCH (08:58)
[2016-09-19] MEDS ORDERED: TEMAZEPAM 7.5 MG CAP PO PRN (11:45)
[2016-09-19] MEDS ORDERED: BETAMETHASONE DIPROPIONATE 0.05% CREAM 15 GM TOPICAL PRN (11:45)
--- NOTE | 2016-09-19 15:12 | HHI.PYPN ---
Subjective Remarks Patient seen for psychiatric reevaluation today with medical student Anali, patient was found in her room, somewhat disorganized, once she saw me she got up of the bed and stands in from of my asking for forgiveness "because I was very mean with you yesterday". Even when I clarified to her that she did not mistreated me she insisted and persisted in that idea. Patient is very labile and shows frequent mood swings during evaluation, she reports that last night she just slept 20 minutes, but today she feels full of energy anyway. She admits "I am not doing well I need help". Review of Systems Other No somatic complains Objective Alert: Yes [place]: Person, Place, Date Mood: Depressed Affect: Labile, Tearful Memory Intact: Immediate, Recent Hallucinations: Other (She denies) Delusions: No Delusion Type: Other (No elicited ) Suicidal: Ideation (No SI) Homicidal: Ideation (No HI ) Insight/Judgment Poor Labs Test 09/18/16 09/18/16 17:05 22:36 Valproic Acid (Depakene) Level 32 MCG/ML 22 MCG/ML Vitals/IOs Vital Signs Date Time Temp Pulse Resp B/P Pulse Ox O2 Delivery O2 Flow Rate FiO2 09/19/16 12:00 98.4 76 17 153/80 96 09/18/16 21:10 21 09/17/16 18:41 Room Air Intake and Output 09/18/16 09/18/16 09/18/16 07:59 15:59 23:59 Intake Total 360 ml 1193 ml Balance 360 ml 1193 ml Assessment & Plan Problem List: (1) Bipolar 1 disorder, depressed Assessment & Plan: Patine seems to be fragile, with frequent mood swings, very labile affect, at time disorganized, not sleeping at night. She has recently overdose with SI. She seems to be having a mix episode of mika and depression. She needs hospitalization for stabilization and safety. Will increase Depakote to 500 mg bid. Her levels of Depakote yesterday were just 22. Transfer to psychiatry once medically clear. ICD Code: F31.9 Assessment & Plan Estimated LOS: days Justification for Cont. Inpt. Patient presents with mixed manic/depression and needs psychiatric hospitalization for stabilization. Gene Ingram MD Sep 19, 2016 15:12
[2016-09-19] MEDS: ENOXAPARIN SODIUM 40 MG/0.4 ML SYRINGE SQ SCH (16:16)
--- NOTE | 2016-09-19 16:21 | HHI.PR ---
Subjective Remarks Follow-up for overdose for suicide attempt Patient complaining insomnia and wants a sleeping aid. She denies any depression but seems very anxious. Her is at the bedside. Patient also complaining about a rash on her right arm. She stated that is very itchy. Otherwise she has no other complaints. Patient sitter is at the bedside. Dealt with patient's nurse. Objective Vitals Vital Signs Date Time Temp Pulse Resp B/P Pulse Ox O2 Delivery O2 Flow Rate FiO2 09/19/16 12:00 98.4 76 17 153/80 96 09/19/16 10:00 98.2 81 17 139/75 97 09/19/16 08:02 98.3 66 18 151/86 96 09/19/16 08:00 66 09/19/16 07:48 66 09/19/16 06:00 60 09/19/16 05:00 61 09/19/16 04:00 60 09/19/16 03:00 60 09/19/16 02:00 62 09/19/16 01:00 60 09/19/16 00:00 98.1 73 16 148/92 97 09/19/16 00:00 55 09/18/16 23:00 70 09/18/16 22:00 98 09/18/16 21:10 21 09/18/16 21:00 68 09/18/16 20:00 97.9 64 16 162/98 97 09/18/16 20:00 75 09/18/16 19:00 98 09/18/16 18:00 72 09/18/16 17:00 92 09/18/16 16:45 16 I/O 09/18/16 09/18/16 09/18/16 09/19/16 09/19/16 09/19/16 06:59 14:59 22:59 06:59 14:59 22:59 Intake Total 360 ml 1193 ml 360 ml Balance 360 ml 1193 ml 360 ml Intake Oral 360 ml 600 ml 360 ml IV Total 593 ml # Voids 5 10 4 # Bowel Movements 0 1 Result Diagram: 09/18/16 0853 09/18/16 0853 Objective Remarks GENERAL: in NAD SKIN: Right arm and the anti-capital area with some papules and excoriation from scratching. No erythema noted. CARDIOVASCULAR: Regular rate and rhythm without murmurs, gallops, or rubs. RESPIRATORY: Breath sounds equal bilaterally. No accessory muscle use. GASTROINTESTINAL: Abdomen soft, non-tender, nondistended. PSYCHO: No seems to be labile. Medications and IVs Current Medications Sodium Chloride 2 ml 2 ml UNSCH PRN IVF FLUSH AFTER USING IV ACCESS; Start 09/17 at 11:45; Stop 09/18/16 at 12:20; Status DC Sodium Chloride 1,000 ml @ 1,000 mls/hr Q1H ONCE IV Last administered on 12:42; Start 09/17/16 at 11:36; Stop 09/17/16 at 12:35; Status DC Sodium Chloride (NS 1000 ml Inj) 1,000 ml @ 100 mls/hr Q10H IV Last administered on 09/18/16 11:26; Start 09/17/16 at 15:26 Sodium Chloride (NS Flush) 2 ml UNSCH PRN IV FLUSH FLUSH AFTER USING IV ACCESS ; Start 09/17/16 at 15:30 Sodium Chloride (NS Flush) 2 ml BID IV FLUSH Last administered on 09/19/16 08: 58; Start 09/17/16 at 21:00 Acetaminophen (Tylenol) 650 mg Q4H PRN PO TEMP > 100.4 Last administered on 09/19 01:49; Start 09/17/16 at 15:30 Metoclopramide HCl (Reglan Inj) 5 mg Q6H PRN IV PUSH NAUSEA OR VOMITING; Start 09/17/16 at 15:30 Prochlorperazine (Compazine Supp) 25 mg Q12H PRN RECTAL NAUSEA OR VOMITING; Start 09/17/16 at 15:30 Enoxaparin Sodium (Lovenox Inj) 40 mg Q24H SQ Last administered on 09/17/16 16: 24; Start 09/17/16 at 15:30 Tramadol HCl (Ultram) 50 mg Q4H PRN PO PAIN SCALE 3 TO 5; Start 09/17/16 at 15: 30 Naloxone HCl (Narcan Inj) 0.4 mg UNSCH PRN IV SEE LABEL COMMENTS; Start at 15:30 Senna/Docusate Sodium (Nancy-Colace) 1 tab BID PO ; Start 09/17/16 at 21:00 Magnesium Hydroxide (Milk Of Magnesia Liq) 30 ml Q12H PRN PO MILD - MODERATE CONSTIPATION; Start 09/17/16 at 15:30 Sennosides (Senokot) 17.2 mg Q12H PRN PO MODERATE - SEVERE CONSTIPATION; Start 09/17/16 at 15:30 Bisacodyl (Dulcolax Supp) 10 mg DAILY PRN RECTAL SEVERE CONSITIPATION; Start at 15:30 Lactulose 30 ml 30 ml DAILY PRN PO SEVERE CONSITIPATION; Start 09/17/16 at 15:30 Potassium Chloride 100 ml @ 50 mls/hr Q2H PRN IV For Potassium 2.8 - 3.2 mEq/L ; Start 09/17/16 at 15:30; Stop 09/19/16 at 14:48; Status DC Potassium Chloride (KCl 20 Meq Premix Inj) 100 ml @ 50 mls/hr Q2H PRN IV For Potassium 2.8 - 3.2 mEq/L; Start 09/17/16 at 15:30; Stop 09/19/16 at 14:48; Status DC Potassium Bicarb/ Potassium Chloride 50 meq 50 meq UNSCH PRN PO For Potassium 3.3 - 3.5 mEq/L; Start 09/17/16 at 15:30; Stop 09/19/16 at 14:48; Status DC Potassium Chloride 100 ml @ 25 mls/hr UNSCH PRN IV For Potassium 3.3 - 3.5 mEq /L; Start 09/17/16 at 15:30; Stop 09/19/16 at 14:48; Status DC Potassium Chloride 100 ml @ 50 mls/hr Q2H PRN IV For Potassium 3.3 - 3.5 mEq/L ; Start 09/17/16 at 15:30; Stop 09/19/16 at 14:48; Status DC Magnesium Sulfate/ Sodium Chloride (Magnesium Sulfate Inj/NS Inj) 100 ml @ 50 mls/hr UNSCH PRN IV For Magnesium 0.9 - 1.1 mg/dL; Start 09/17/16 at 15:30; Stop 09/19/16 at 14:48; Status DC Magnesium Oxide 800 mg 800 mg UNSCH PRN PO For Magnesium 1.2 - 1.6 mg/dL; Start 09/17/16 at 15:30; Stop 09/19/16 at 14:48; Status DC Magnesium Sulfate/ Sodium Chloride (Magnesium Sulfate Inj/NS Inj) 100 ml @ 50 mls/hr UNSCH PRN IV For Magnesium 1.2 - 1.6 mg/dL; Start 09/17/16 at 15:30; Stop 09/19/16 at 14:48; Status DC Potassium Phosphate 2000 mg 2,000 mg Q4H PRN PO For Phosphorus < 2.5 mg/dL; Start 09/17/16 at 15:30; Stop 09/19/16 at 14:48; Status DC Sodium Phosphate/ Sodium Chloride (Sodium Phosphate Inj/NS 250 ml Inj) 250 ml @ 42 mls/hr UNSCH PRN IV For Phosphorus < 2.5 mg/dL; Start 09/17/16 at 15:30; Stop 09/19/16 at 14:48; Status DC Potassium Phosphate 2000 mg 2,000 mg UNSCH PRN PO/TUBE SEE LABEL COMMENTS; Start 09/17/16 at 15:30; Stop 09/19/16 at 14:48; Status DC Potassium Phosphate/Sodium Chloride (Potassium Phosphate Inj/NS 250 ml Inj) 260 ml @ 42 mls/hr UNSCH PRN IV SEE LABEL COMMENTS; Start 09/17/16 at 15:30; Stop 09/19/16 at 14:48; Status DC Amlodipine Besylate (Norvasc) 2.5 mg DAILY PO Last administered on 09/19/16 08: 55; Start 09/18/16 at 09:00 Ergocalciferol (Drisdol) 50,000 units DAILY PO Last administered on 09/19/16 08 :54; Start 09/18/16 at 09:00 Levothyroxine Sodium (Synthroid) 88 mcg DAILY@06 PO Last administered on 05:22; Start 09/18/16 at 06:00 Ascorbic Acid (Vitamin C) 1,000 mg DAILY PO Last administered on 09/19/16 08:55 ; Start 09/18/16 at 09:00 Lisinopril (Prinivil) 2.5 mg HS PO Last administered on 09/18/16 21:03; Start 09/17/16 at 21:00 Multivitamins/ Minerals Therapeutic (Theragran M Tab) 1 tab DAILY PO Last administered on 09/19/16 08:54; Start 09/18/16 at 09:00 Midazolam HCl (Versed Inj) 10 mg STAT ONCE IV PUSH ; Start 09/17/16 at 16:30; Stop 09/17/16 at 17:36; Status DC Rocuronium Hermann (Zemuron Inj) 100 mg BOLUS ONCE IV ; Start 09/17/16 at 16:30 ; Stop 09/17/16 at 17:36; Status DC Miscellaneous (Pill Splitter) 1 ea UNSCH PRN OTHER SEE LABEL COMMENTS; Start at 17:15 Diphenhydramine HCl (Benadryl) 50 mg HS PO Last administered on 09/18/16 21:04 ; Start 09/18/16 at 21:00 Divalproex Sodium (Depakote Dr) 500 mg HS PO Last administered on 09/18/16 21: 04; Start 09/18/16 at 21:00; Stop 09/19/16 at 14:59; Status DC Olanzapine (ZyPREXA) 5 mg HS PO Last administered on 09/18/16 21:02; Start 09/18 at 21:00 Potassium Chloride (KCl) 40 meq ONCE ONCE PO Last administered on 09/18/16 12: 51; Start 09/18/16 at 13:00; Stop 09/18/16 at 13:01; Status DC Temazepam (Restoril) 7.5 mg HS PRN PO insomnia; Start 09/19/16 at 11:45 Betamethasone Dipropionate (Diprosone 0.05% Cream) 1 applic BID PRN TOPICAL rash on arm; Start 09/19/16 at 11:45 Divalproex Sodium (Depakote Dr) 500 mg BID PO ; Start 09/19/16 at 21:00 A/P Problem List: (1) Depressive disorder ICD Code: F32.9 Status: Acute (2) HTN (hypertension) ICD Code: I10 Status: Acute (3) Overdose ICD Code: T50.901A Status: Acute (4) Hypothyroidism ICD Code: E03.9 Status: Acute (5) GERD (gastroesophageal reflux disease) ICD Code: K21.9 Status: Acute (6) Back pain, chronic ICD Code: M54.9 Status: Acute (7) Insomnia ICD Code: G47.00 Status: Acute Assessment and Plan Mrs. Mon is a 61-year-old female with a known medical history of chronic back pain and bipolar depression who was brought in via [facility] with overdose. Depressive disorder with overdose with suicide attempt -Psychiatry was consulted and following. Depakote was increased to 500 mg twice a day. -Per psychiatrist recommends inpatient psychiatry. -Patient has been medically clear for transfer since yesterday. Pending bed availability. Hypertension, chronic: BP controlled. -Continue home Lisinopril and Norvasc. Monitor BP closely. Contact dermatitis -Avoid irritant. -Will give betamethasone cream when necessary. Hypothyroidism, chronic: -Continue home Levothyroxine. Chronic back pain: -Tramadol 50 mg PO q4h PRN. Insomnia -Most likely secondary to her depression. -Will give Restoril when necessary, but underlying cause need to be treated. DVT prophylaxis -SCD/Lovenox 40 mg sq q24hr. Discharge Planning Is medically clear and stable for discharge. Pending bed availability in inpatient psych. Problem Qualifiers (1) Back pain, chronic: Alejandra Colón MD Sep 19, 2016 16:20
[2016-09-19] MEDS ORDERED: DIVALPROEX DR 500 MG TABEC PO SCH (21:00)
== END 2016-09-19 19:15 | DRG 918 ==
LOC: NEPD 11:26 → NEDA 15:29 → HCIS 19:10 → N05A 09-19 09:37
PROVIDERS: ADMIT Family Medicine; ATTEND Family Medicine
DX: T50.902A Poisoning by unspecified drugs, medicaments and biological substances, intentional self-harm, initial encounter (principal); F31.12 Bipolar disorder, current episode manic without psychotic features, moderate; I10 Essential (primary) hypertension; J98.11 Atelectasis; E03.9 Hypothyroidism, unspecified; Y92.9 Unspecified place or not applicable; G47.00 Insomnia, unspecified; G89.29 Other chronic pain; M54.9 Dorsalgia, unspecified; J45.990 Exercise induced bronchospasm; K21.9 Gastro-esophageal reflux disease without esophagitis; K44.9 Diaphragmatic hernia without obstruction or gangrene; F41.8 Other specified anxiety disorders
CPT/HCPCS: 71010; 80053; 80061; 80164; 80307; 81001; 82140; 82550; 82552; 83036; 83735; 83930; 84100; 84439; 84443; 84484; 85025; 85610; 85730; 93005; 96360; J1650; J7030

== ENCOUNTER 2016-09-19 19:40 | Inpatient (IN) | payer OTHER ==
[~2016-09-19] VITALS: Ht 152.4 cm; Wt 58.0 kg
[~2016-09-19 19:40] MED LIST changes: +ALPR.5 PO; -AMBI12.5 PO; +ASCO100016 PO; -ASCO10003 PO; -CLON0.5T PO; +DIPH25CA PO; +ESZO1TAB4 PO; +LISI2.5T3 PO; -MULT-6 PO; +MULT1TAB PO
[2016-09-19 19:52] VITALS: BP 167/83; PULSE 88; RESP 20; TEMP 98.2; O2SAT 99
[2016-09-19] MEDS ORDERED: ALUMINUM/MAGNESIUM/SIMETH 30 ML CUP PO PRN (20:15)
[2016-09-19] MEDS ORDERED: MAGNESIUM HYDROXIDE SUSP 30 ML CUP PO PRN (20:15)
[2016-09-19] MEDS ORDERED: LORazepam 2 MG/ML VIAL IM PRN ×2 (20:15)
[2016-09-19] MEDS ORDERED: LORazepam 0.5 MG TAB PO PRN (20:15)
[2016-09-19] MEDS ORDERED: LORazepam 1 MG TAB PO PRN (20:15)
[2016-09-19] MEDS: DIVALPROEX DR 500 MG TABEC PO SCH (21:00)
[2016-09-19] MEDS ORDERED: PILL SPLITTER OTHER PRN (21:00)
[2016-09-19] MEDS: OLANZapine 5 MG TAB PO SCH (21:00)
[2016-09-19] MEDS: LISINOPRIL 5 MG TAB PO SCH (21:00)
[2016-09-20] MEDS: LEVOTHYROXINE SODIUM 88 MCG TAB PO SCH (05:59)
[2016-09-20 06:33] VITALS: BP 122/65; PULSE 70; RESP 16; TEMP 97.7; O2SAT 98
[2016-09-20] MEDS: amLODIPine BESYLATE 5 MG TAB PO SCH (08:35)
[2016-09-20] MEDS: DIVALPROEX DR 500 MG TABEC PO SCH ×2 (08:35→21:00)
[2016-09-20] MEDS ORDERED: REMOVE OLD PATCH T-DERMAL SCH (09:00)
[2016-09-20] MEDS ORDERED: NICOTINE 21 MG/24 HR PATCH T-DERMAL SCH (09:00)
[2016-09-20] MEDS ORDERED: ALUMINUM/MAGNESIUM/SIMETH 30 ML CUP PO PRN (13:15)
[2016-09-20] MEDS ORDERED: ACETAMINOPHEN 325 MG TAB PO PRN (13:15)
[2016-09-20] MEDS ORDERED: MAGNESIUM HYDROXIDE SUSP 30 ML CUP PO PRN (13:15)
--- NOTE | 2016-09-20 13:22 | PD.CONS ---
[facility] Reason for Consult Medical management Primary Care Physician Unknown Diagnoses: History of Present Illness 24-year-old with bipolar disorder who presented with suicide attempt with overdose. [facility] consulted for medical management. Patient asked me about Restoril and stated that she was given Xanax last night. She also stated that the cream is working for her rash. She had no other complaints. All other review symptoms reviewed and negative. Past Family Social History Allergies: Coded Allergies: Ciprofloxacin (Verified Allergy, Severe, FABIENNE'S SYNDROME, 09/17/16) Contrast Media (Verified Allergy, Severe, FABIENNE'S SYNDROME, 09/17/16) Iodine (Verified Allergy, Severe, FABIENNE'S SYNDROME, 09/17/16) Neomycin (Verified Allergy, Severe, FABIENNE'S SYNDROME, 09/17/16) Penicillin (Verified Allergy, Severe, FABIENNE'S SYNDROME, 09/17/16) Sucralfate (Verified Allergy, Severe, Rash, 09/17/16) Vancomycin (Verified Allergy, Severe, FABIENNE'S SYNDROME, 09/17/16) Zofran (Verified Allergy, Severe, HIVES, 09/17/16) Carafate (Verified Allergy, Unknown, 09/17/16) Past Medical History Anxiety Depression GERD Hypertension Insomnia Exercised induced asthma Hypothyroidism History of alcoholism, has stopped drinking many years ago. Past Surgical History Cholecystectomy Previous abdominal surgery due to ruptured appendicitis with wound vac history, ileostomy x 6 months and tracheostomy x 6 months. Reported Medications Xanax (Alprazolam) 0.5 Mg Tab 0.5 Mg PO BID PRN Vitamin C (Ascorbic Acid) 1,000 Mg Tablet.er 1,000 Mg PO DAILY Centrum Silver Adult 50+ (Multiple Vitamins W/ Minerals) 1 Tab Tab 1 Tab PO DAILY Diphenhydramine (Diphenhydramine HCl) 25 Mg Cap 50 Mg PO HS Eszopiclone 3 Mg Tab 3 Mg PO HS Lisinopril 2.5 Mg Tab 2.5 Mg PO HS Depakote DR (Divalproex Sodium) 500 Mg Tabdr 500 Mg PO HS Zyprexa (Olanzapine) 5 Mg Tab 5 Mg PO HS Levothyroxine (Levothyroxine Sodium) 88 Mcg Tab 88 Mcg PO DAILY Ergocalciferol 50,000 Unit Cap 50,000 Units PO SUN/THURS Amlodipine (Amlodipine Besylate) 2.5 Mg Tab 2.5 Mg PO DAILY Active Ordered Medications Current Medications Lorazepam (Ativan) 1 mg Q6H PRN PO MODERATE TO SEVERE ANXIETY Last administered on 09/19/16 22:16; Start 09/19/16 at 20:15; Stop 09/20/16 at 13:21; Status DC Lorazepam (Ativan Inj) 1 mg Q6H PRN IM MODERATE TO SEVERE ANXIETY; Start at 20:15; Stop 09/20/16 at 13:21; Status DC Lorazepam (Ativan) 0.5 mg Q12H PRN PO MODERATE TO SEVERE ANXIETY; Start at 20:15; Status Cancel Lorazepam (Ativan Inj) 0.5 mg Q12H PRN IM MODERATE TO SEVERE ANXIETY; Start 09/19/16 at 20:15; Status Cancel Acetaminophen (Tylenol) 650 mg Q4H PRN PO Pain 1-5 or Temp >101F; Start at 20:15 Magnesium Hydroxide (Milk Of Magnesia Liq) 30 ml DAILY PRN PO CONSTIPATION; Start 09/19/16 at 20:15 Al Hydrox/Mg Hydrox/Simethicone (Mag-Al Plus Susp Liq) 30 ml Q6H PRN PO DYSPEPSIA; Start 09/19/16 at 20:15 Nicotine (Habitrol 21 Mg Patch.24 Hr) 1 patch DAILY T-DERMAL ; Start 09/20/16 at 09:00; Status Cancel Miscellaneous Information 1 DAILY T-DERMAL ; Start 09/20/16 at 09:00; Status Cancel Divalproex Sodium (Depakote Dr) 500 mg BID PO Last administered on 09/20/16 08: 35; Start 09/19/16 at 21:00 Olanzapine (ZyPREXA) 5 mg HS PO Last administered on 09/19/16 21:00; Start 09/19 at 21:00 Amlodipine Besylate (Norvasc) 2.5 mg DAILY PO Last administered on 09/20/16 08: 35; Start 09/20/16 at 09:00 Lisinopril (Prinivil) 2.5 mg HS PO Last administered on 09/19/16 21:00; Start 09/19/16 at 21:00 Levothyroxine Sodium (Synthroid) 88 mcg DAILY@0600 PO Last administered on t 05:59; Start 09/20/16 at 06:00 Miscellaneous (Pill Splitter) 1 ea UNSCH PRN OTHER SEE LABEL COMMENTS; Start at 21:00 Lorazepam (Ativan) 0.5 mg Q6H PRN PO anxiety; Start 09/20/16 at 14:15; Status UNV Diphenhydramine HCl (Benadryl) 50 mg HS PRN PO INSOMNIA; Start 09/20/16 at 13:15 ; Status UNV Acetaminophen (Tylenol) 650 mg Q4H PRN PO Pain 1-5 or Temp >101F; Start at 13:15; Status UNV Magnesium Hydroxide (Milk Of Magnesia Liq) 30 ml DAILY PRN PO CONSTIPATION; Start 09/20/16 at 13:15; Status UNV Al Hydrox/Mg Hydrox/Simethicone (Mag-Al Plus Susp Liq) 30 ml Q6H PRN PO DYSPEPSIA; Start 09/20/16 at 13:15; Status UNV Family History Maternal family medical history significant for depression and mother at the age of 5454 years old of brain cancer. Paternal family medical history significant for CHF. Social History Patient is . Denies any current tobacco use. Denies any alcohol use. Denies any illicit drug use. Physical Exam Vital Signs Vital Signs Date Time Temp Pulse Resp B/P Pulse Ox O2 Delivery O2 Flow Rate FiO2 09/20/16 06:33 97.7 70 16 122/65 98 09/19/16 19:52 98.2 88 20 167/83 99 Physical Exam GENERAL: This is a well-nourished, well-developed patient, in no apparent distress. SKIN: Left antecubital rash improving. My erythema with papules. HEAD: Atraumatic. Normocephalic. No temporal or scalp tenderness. EYES: Pupils equal round and reactive. Extraocular motions intact. No scleral icterus. No injection or drainage. ENT: Nose without bleeding, purulent drainage or septal hematoma. Throat without erythema, tonsillar hypertrophy or exudate. Uvula midline. Airway patent. NECK: Trachea midline. No JVD or lymphadenopathy. Supple, nontender, no meningeal signs. CARDIOVASCULAR: Regular rate and rhythm without murmurs, gallops, or rubs. RESPIRATORY: Clear to auscultation. Breath sounds equal bilaterally. No wheezes , rales, or rhonchi. GASTROINTESTINAL: Abdomen soft, non-tender, nondistended. No hepato-splenomegaly , or palpable masses. No guarding. MUSCULOSKELETAL: Extremities without clubbing, cyanosis, or edema. No joint tenderness, effusion, or edema noted. No calf tenderness. Negative Homans sign bilaterally. NEUROLOGICAL: Awake and alert. Cranial nerves II through XII intact. Motor and sensory grossly within normal limits. Five out of 5 muscle strength in all muscle groups. Normal speech. Assessment and Plan Assessment and Plan 61-year-old female with bipolar 1 disorder who presented with suicide attempt with overdose Bipolar disorder/suicide attempt/overdose -Being managed by the primary team. Patient is in the inpatient psychiatry. Contact dermatitis -Continue with their Methasone cream as needed. Hypertension/hypothyroidism -continue with home medication. Insomnia -Most likely due to her underlying psychiatric issue. will defer to psychiatrist. Discussed Condition With patient Alejandra Colón MD Sep 20, 2016 13:22
[2016-09-20] MEDS: BETAMETHASONE DIPROPIONATE 0.05% CREAM 15 GM TOPICAL SCH ×2 (13:30→21:00)
--- NOTE | 2016-09-20 13:46 | HHI.HP ---
Provisional Diagnosis Admission Date Sep 19, 2016 at 19:40 [place] I. Bipolar 1 disorder depressed moderate F 31.32 Certification of Person's Competence To Provide Express and Informed Consent I have personally examined Carol Mon , a person being served at [facility] on, Sep 20, 2016 13:24. Express and informed consent means consent voluntarily given in writing, by a competent person, after sufficient explanation and disclosure of the subject matter involved to enable the person to make a knowing and willful decision without any element of force, fraud, deceit, duress, or other form of constraint or coercion. This person is 18 years of age or older, is not now known to be incompetent to consent to treatment with a guardian advocate, and does not have a health care surrogate or proxy currently making medical treatment decisions. I have found this person to be one of the following: [xxx] Competent to provide express and informed consent, as defined above, for voluntary admission to this facility and is competent to provide express and informed consent for treatment. He/she has the consistent capacity to make well reasoned, willful, and knowing decisions concerning his or her medical or mental health treatment. The person fully and consistently understands the purpose of the admission for examination/placement and is fully capable of personally exercising all rights assured [place] Incompetent to provide express and informed consent to voluntary admission, and this is incompetent to provide express and informed consent to treatment. The person must be transferred to involuntary status and a petition for a guardian advocate filed with the Circuit Court. [] Refusing to provide express and informed consent to voluntary admission but is competent to provide express and informed consent for treatment. The person must be discharged or transferred to involuntary status. Form shall be completed within 24 hours of a person's arrival at the receiving facility and filed in the clinical record of each person: 1. Admitted on a voluntary basis 2. Permitted to provide express and informed consent to his/her own treatment 3. Allowed to transfer from involuntary to voluntary status 4. Prior to permitting a person to consent to his or her own treatment after having been previously found incompetent to consent to treatment. History of Present Illness Capacity: Has Capacity HPI Patient is a 61-year-old white female comes here initially under [employer] act by the [facility] [employer] [facility] [facility] dated 09/17/16 at 10:54 AM that document reviewed. The document stating sometime overnight Tisha some all of her medication Depakote and Zyprexa also took 3 mg of Lunesta. Tisha was stating that she did not want to live anymore. Patient was initially admitted to the medicine service 09/17/16 through 09/19/16 under visit [id number] lab work drawn at that time on 09/17/16 showed Depakote level of 142 subsequent level drawn on 09/18/16 came back at 22 was also negative toxicology screen done. Patient also seen by Dr. Barroso recommended referral to the psychiatric unit once medically clear patient was medically cleared and transferred to this unit. At the present time patient sitting quietly in her room nurse Diego present throughout session. Patient states she is a retired here from up on the [employer]. This here with her . Has been having episodes recently of boredom depression frustration with no activity no socialization. This became somewhat overwhelming leading to her overdose. She similar episode which was hospitalized here 04/07/16 through 04/16/16 under visit [id number]. She states she's been followed by her nurse practitioner and Dr. Juan Miguel Copeland's office. she denies any counseling. She denies any recent alcohol or drug use. She does acknowledge a past history of alcohol misuse a number of years ago though she denies detox rehabilitation legal issues related to it. She denies any other drug use. She denies any physical or sexual abuse as a child. She states she did have a brother who committed suicide in his mid 30s.. She now denies suicidality feels quite contrite about it. No she has to engage in activities in the community. She states she would like to do something to help with the [employer]. We also discussed the possibility of of participating in our outpatient support groups. In any event at the present time patient does meet criteria for further patient assessment of her medications and monitoring of her mood. I do feel she has the capacity though to sign voluntary. Thus I'll lift Rowe act allow her to sign voluntary will refrain from any benzodiazepines will continue her Zyprexa 5 mg at at bedtime. Continue Depakote 500 mg twice a day to get Depakote blood level on 09/22 with possible discharge for her family on that day. With her to follow through with Dr. Copeland 's office Review of Systems Constitutional: DENIES: Diaphoretic episodes, Fatigue, Fever, Weight gain, Weight loss, Chills, Dizziness, Change in appetite, Night Sweats Endocrine: DENIES: Abnorml menstrual pattern, Heat/cold intolerance, Polydipsia , Polyuria, Polyphagia Eyes: DENIES: Blurred vision, Diplopia, Eye inflammation, Eye pain, Vision loss , Photosensitivity, Double Vision Ears, nose, mouth, throat: DENIES: Tinnitus, Hearing loss, Vertigo, Nasal discharge, Oral lesions, Throat pain, Hoarseness, Ear Pain, Running Nose, Epistaxis, Sinus Pain, Toothache, Odynophagia Respiratory: DENIES: Apneas, Cough, Snoring, Wheezing, Hemoptysis, Sputum production, Shortness of breath Cardiovascular: DENIES: Chest pain, Palpitations, Syncope, Dyspnea on Exertion , PND, Lower Extremity Edema, Orthopnea, Claudication Psychiatric: COMPLAINS OF: Depression, Suicidal Ideation (denies at the present time) Past Psych History Psychological trauma history Patient denies physical or sexual abuse Violence risk - others (6 mos) Low Violence risk - self (6 mos) Patient with serious suicide attempt Substance Abuse History Drugs/Alcohol past 12 months Denies Past Family Social History Coded Allergies: Ciprofloxacin (Verified Allergy, Severe, FABIENNE'S SYNDROME, 09/17/16) Contrast Media (Verified Allergy, Severe, FABIENNE'S SYNDROME, 09/17/16) Iodine (Verified Allergy, Severe, FABIENNE'S SYNDROME, 09/17/16) Neomycin (Verified Allergy, Severe, FABIENNE'S SYNDROME, 09/17/16) Penicillin (Verified Allergy, Severe, FABIENNE'S SYNDROME, 09/17/16) Sucralfate (Verified Allergy, Severe, Rash, 09/17/16) Vancomycin (Verified Allergy, Severe, FABIENNE'S SYNDROME, 09/17/16) Zofran (Verified Allergy, Severe, HIVES, 09/17/16) Carafate (Verified Allergy, Unknown, 09/17/16) Reported Medications Alprazolam (Xanax)0.5 Mg Tab0.5 Mg PO BID PRN (ANXIETY) Ref 0 09/17/16 Ascorbic Acid (Vitamin C)1,000 Mg Tablet.er1,000 Mg PO DAILY 09/17/16 Multiple Vitamins W/ Minerals (Centrum Silver Adult 50+)1 Tab Tab1 Tab PO DAILY 09/17/16 Diphenhydramine 25 Mg Cap50 Mg PO HS Ref 0 09/17/16 Eszopiclone 3 Mg Tab3 Mg PO HS #30 TAB Ref 0 09/17/16 Lisinopril 2.5 Mg Tab2.5 Mg PO HS #30 TAB Ref 0 09/17/[address] (Jessica DSOUZA)500 Mg [id number] Mg PO HS #60 TAB Ref 0 09/17/16 Olanzapine (Zyprexa)5 Mg Tab5 Mg PO HS #30 TAB Ref 0 09/17/16 Levothyroxine 88 Mcg Tab88 Mcg PO DAILY #30 TAB Ref 0 04/07/16 Ergocalciferol 50,000 Unit Cap50,000 Units PO SUN/THURS #30 CAP Ref 0 04/07/16 Amlodipine 2.5 Mg Tab2.5 Mg PO DAILY #30 TAB Ref 0 04/07/16 Discontinued Reported Medications Zolpidem ER (Ambien CR)12.5 Mg Tab12.5 Mg PO HS PRN (INSOMNIA) Ref 0 04/07/16 Discontinued Scripts Clonazepam 0.5 Mg Tab0.5 Mg PO BID #60 TAB Ref 0 Prov:Parker Webb MD 04/17/16 Current Medications Medications (Trade) Dose Ordered Sig/Carisa Route Start Time Stop Time Status Last Admin (Tylenol) 650 mg Q4H PRN PO 09/19/16 20:15 (Milk Of Magnesia Liq) 30 ml DAILY PRN PO 09/19/16 20:15 (Mag-Al Plus Susp Liq) 30 ml Q6H PRN PO 09/19/16 20:15 (Depakote Dr) 500 mg BID PO 09/19/16 21:00 09/20/16 08:35 (ZyPREXA) 5 mg HS PO 09/19/16 21:00 09/19/16 21:00 (Norvasc) 2.5 mg DAILY PO 09/20/16 09:00 09/20/16 08:35 (Prinivil) 2.5 mg HS PO 09/19/16 21:00 09/19/16 21:00 (Synthroid) 88 mcg DAILY@0600 PO 09/20/16 06:00 09/20/16 05:59 (Pill Splitter) 1 ea UNSCH PRN OTHER 09/19/16 21:00 (Ativan) 0.5 mg Q6H PRN PO 09/20/16 14:15 UNV (Benadryl) 50 mg HS PRN PO 09/20/16 13:15 UNV (Tylenol) 650 mg Q4H PRN PO 09/20/16 13:15 UNV (Milk Of Magnesia Liq) 30 ml DAILY PRN PO 09/20/16 13:15 UNV (Mag-Al Plus Susp Liq) 30 ml Q6H PRN PO 09/20/16 13:15 UNV Family History Patient states had a brother who committed suicide in his mid 30s Social History Patient lives with her of 40+ years past 2 adult daughters Patient's Strengths (min. 2) Patient verbal calm cooperative Physical Exam Patient seen screened with visit number [id number], the present time patient sitting calmly in her room she is in no acute distress, she is in no respiratory distress, no complaints of abdominal pain, patient moves all 4 extremities without difficulty or pain, no abnormal motor movements noted Vital Signs Vital Signs Date Time Temp Pulse Resp B/P Pulse Ox O2 Delivery O2 Flow Rate FiO2 09/20/16 06:33 97.7 70 16 122/65 98 Mental Status Examination Alert oriented thin slender white female appears her stated age light blonde hair, she is cooperative is somewhat guarded Appearance Clean and neat Speech: Fast (mildly), Tangential (mildly) Orientation: x3 Memory: Unremarkable Thought Process: Logical Thought Content: Unremarkable Language Poor to fair Fund of Knowledge Fair Hallucination Type: None (denies take) Attention and Concentration: Other (fair) Suicidal Ideation: Yes (patient denies at this time though just had significant suicide attempt) Previous Suicide Attempts: Yes Homicidal Ideation: No Previous Homicide Attempts: No Insight: Poor Judgment: Poor Affect: Other (decreased range intensity) Mood: Euthymic (mildly dysphoric) Motor Activity: Normal gait Assessment & Plan Problem List: (1) Bipolar 1 disorder, depressed, moderate ICD Code: F31.32 Assessment & Plan Estimated LOS: 3-5 days patient meets criteria for further observation and assessment considering the severity of her overdose. Also need to monitor and adjust her medications appropriately. Discharge Planning At this time patient might decompensate if placed in a lower level of care Request Surrog/Guard Advoc?: No Kenroy Longo MD Sep 20, 2016 13:46
[2016-09-20] MEDS ORDERED: LORazepam 1 MG TAB PO PRN (14:15)
[2016-09-20 17:29] VITALS: BP 109/58; PULSE 82; RESP 16; TEMP 98.9; O2SAT 100
[2016-09-20] MEDS: ACETAMINOPHEN 325 MG TAB PO PRN (21:00)
[2016-09-20] MEDS: LISINOPRIL 5 MG TAB PO SCH (21:00)
[2016-09-20] MEDS: diphenhydrAMINE HCL 50 MG CAP PO PRN (21:00)
[2016-09-20] MEDS: OLANZapine 5 MG TAB PO SCH (21:00)
[2016-09-21] MEDS: diphenhydrAMINE HCL 50 MG CAP PO PRN ×2 (02:10→21:12)
[2016-09-21] MEDS: ACETAMINOPHEN 325 MG TAB PO PRN ×2 (02:10→21:14)
[2016-09-21 05:37] VITALS: BP 115/74; PULSE 83; RESP 16; TEMP 97.7; O2SAT 97
[2016-09-21] MEDS: LEVOTHYROXINE SODIUM 88 MCG TAB PO SCH (06:00)
--- NOTE | 2016-09-21 08:09 | EKG ---
Date Performed: 09/20/2016 Time Performed: 09:20:25 PTAGE: 61 years EKG: Sinus rhythm NORMAL ECG PREVIOUS TRACING : 09/17/2016 14.20 DOCTOR: Benjy Montoya Interpretating Date/Time 09/21/2016 08:05:05
[2016-09-21] MEDS: BETAMETHASONE DIPROPIONATE 0.05% CREAM 15 GM TOPICAL SCH ×2 (09:00→21:15)
[2016-09-21] MEDS: amLODIPine BESYLATE 5 MG TAB PO SCH (09:00)
[2016-09-21] MEDS: DIVALPROEX DR 500 MG TABEC PO SCH ×2 (09:00→21:14)
[2016-09-21] MEDS: QUEtiapine FUMARATE 25 MG TAB PO SCH (14:30)
--- NOTE | 2016-09-21 14:35 | HHI.PYPN ---
Subjective Remarks Patient seen in her room with medical student Ragini. Patient states she did not sleep well at all last night. And is showing some mild anxiety today. She does feel her mood is improved. She denies suicidality homicidality voices or visions. She states she's had good visits from her and her adult daughter was in town for a few days with patient's 2 grandchildren will discontinue the at bedtime Zyprexa and will order Seroquel 25 mg 8 AM and 2 PM with 50 mg at at bedtime Review of Systems Except as stated in HPI: all other systems reviewed are Neg Objective Alert: Yes Rogers: Person, Place, Date, Situation Mood: Anxious, Calm, Depressed (mildly) Affect: Other (good range of motion intensity) Memory Intact: Comment (they are) Hallucinations: Other Delusions: No Delusion Type: Other (denies) Suicidal: Ideation (deny) Homicidal: Ideation (denies) Insight/Judgment Poor Vitals/IOs Vital Signs Date Time Temp Pulse Resp B/P Pulse Ox O2 Delivery O2 Flow Rate FiO2 09/21/16 05:37 97.7 83 16 115/74 97 Intake and Output 09/20/16 09/20/16 09/21/16 08:00 16:00 00:00 Intake Total 240 ml Balance 240 ml Assessment & Plan Problem List: (1) Bipolar 1 disorder, depressed, moderate ICD Code: F31.32 Assessment & Plan Estimated LOS: days patient continues depressed. Continues anxious with significant insomnia Denies suicidality. She medication adjustments above Justification for Cont. Inpt. At this time patient will decompensate if placed in a lower level of care Discharge Planning To be determined Request HC Surrog/Guard Advoc?: Kenroy Alcaraz MD Sep 21, 2016 14:35
[2016-09-21] MEDS ORDERED: QUEtiapine FUMARATE 100 MG TAB PO SCH (21:00)
[2016-09-21] MEDS: LISINOPRIL 5 MG TAB PO SCH (21:14)
[2016-09-22] MEDS: LEVOTHYROXINE SODIUM 88 MCG TAB PO SCH (06:01)
[2016-09-22 06:13] VITALS: BP 143/80; PULSE 72; RESP 16; TEMP 98.3; O2SAT 98
[2016-09-22] MEDS: DIVALPROEX DR 500 MG TABEC PO SCH (08:35)
[2016-09-22] MEDS: QUEtiapine FUMARATE 25 MG TAB PO SCH (08:35)
[2016-09-22] MEDS: amLODIPine BESYLATE 5 MG TAB PO SCH (08:36)
[2016-09-22] MEDS: BETAMETHASONE DIPROPIONATE 0.05% CREAM 15 GM TOPICAL SCH (08:37)
[2016-09-22] MEDS ORDERED: BETA0.052 TOPICAL (10:08)
[2016-09-22] MEDS ORDERED: SYNT88TA PO (10:08)
[2016-09-22] MEDS ORDERED: LISI2.5T3 PO (10:08)
[2016-09-22] MEDS ORDERED: NORV2.5T PO (10:08)
[2016-09-22] MEDS ORDERED: DIVA500T PO (10:08)
[2016-09-22] MEDS ORDERED: QUET1TAB7 PO (10:08)
--- NOTE | 2016-09-22 10:24 | HHI.DS ---
Psychiatry Discharge Summary Inpatient Psychiatric care?: Yes Advance Directive: No Reason Not Provided: declined Mental Health AdvanceDirective: No Health Care Proxy: No Admission Admission Date Sep 19, 2016 at 19:40 Admission Diagnosis: (1) Bipolar 1 disorder, depressed, moderate ICD Code: F31.32 Brief History Patient is a 61-year-old white female comes here initially under [place] act by the [employer] dated 09/17/16 at 10:54 AM that document reviewed. The document stating sometime overnight Tisha some all of her medication Depakote and Zyprexa also took 3 mg of Lunesta. Tisha was stating that she did not want to live anymore. Patient was initially admitted to the medicine service 09/17/16 through 09/19/16 under visit [id number] lab work drawn at that time on 09/17/16 showed Depakote level of 142 subsequent level drawn on 09/18/16 came back at 22 was also negative toxicology screen done. Patient also seen by Dr. Barroso recommended referral to the psychiatric unit once medically clear patient was medically cleared and transferred to this unit. At the present time patient sitting quietly in her room nurse Diego present throughout session. Patient states she is a retired here from up on the [facility]. This here with her . Has been having episodes recently of boredom depression frustration with no activity no socialization. This became somewhat overwhelming leading to her overdose. She similar episode which was hospitalized here 04/07/16 through 04/16/16 under visit [id number]. She states she's been followed by her nurse practitioner and Dr. Juan Miguel Copeland's office. she denies any counseling. She denies any recent alcohol or drug use. She does acknowledge a past history of alcohol misuse a number of years ago though she denies detox rehabilitation legal issues related to it. She denies any other drug use. She denies any physical or sexual abuse as a child. She states she did have a brother who committed suicide in his mid 30s.. She now denies suicidality feels quite contrite about it. No she has to engage in activities in the community. She states she would like to do something to help with the [employer]. We also discussed the possibility of of participating in our outpatient support groups. In any event at the present time patient does meet criteria for further patient assessment of her medications and monitoring of her mood. I do feel she has the capacity though to sign voluntary. Thus I'll lift Rowe act allow her to sign voluntary will refrain from any benzodiazepines will continue her Zyprexa 5 mg at at bedtime. Continue Depakote 500 mg twice a day to get Depakote blood level on 09/22 with possible discharge for her family on that day. With her to follow through with Dr. Copeland 's office Tobacco Use In Past 30 Days: No Tobacco Past 30 Days Alcohol Use: Never Hospital Course Patient's initial depression and anxiety slowly resolve with her participation in the milieu. The initiation of Seroquel with the discontinuation of benzodiazepine in the Zyprexa was quite well received. Patient states she slept well last night. Anxiety is markedly decreased. She continues to denies suicidality homicidality voices or visions. She states she had a good visit with her and daughter who is in from [place]. She states would like to go home today to follow up with Dr. Copeland. She has an appointment with him next . At this time feel she met her maximum benefit of this hospitalization. We were drawing a Depakote blood level today though it appears it was not drawn until about 10 AM. This is after she received her morning dose of Depakote thus I feel the results may be skewed. We will have the patient repeat her Depakote blood level before her visit with Dr. Copeland. Thus she'll be discharged today with Rx 1 month follow-up Dr. Copeland on 09/28 Results Blood Pressure 143 / 80 Vital Signs Date Time Temp Pulse Resp B/P Pulse Ox O2 Delivery O2 Flow Rate FiO2 09/22/16 06:13 98.3 72 16 143/80 98 See EMR previous visit for full lab results Summary of Procedures None done Pending results at discharge: Yes (Depakote blood level) Medications # of Antipsychotic meds at D/C: 1 Approp Antipsych med options 1 - Minimum of three failed multiple trials of monotherapy. 2 - Documented plan to taper to monotherapy due to previous use of multiple meds OR cross-taper in progress at D/C. 3 - Documentation of augmentation of Clozapine. 4 - Justification other than those listed in allowable values 1-3, document here : Discharge Discharge Date: Sep 22, 2016 Discharge Diagnosis: (1) Bipolar 1 disorder, depressed, moderate Diagnosis: Principal ICD Code: F31.32 Mental Status Exam at Disch Alert oriented white female calm cooperative. She is normal active. Her mood is euthymic with good range intensity of her affect. Speech rate and rhythm within normal limits though no formal thought disorders. No auditory or visual hallucinations. No delusions. Insight and judgment is poor to fair. Cognition grossly intact Pt Condition on Discharge: Stable Discharge Disposition: Discharge Home Discharge Instructions Diet Instructions: As Tolerated, No Restrictions Activities you can perform: Regular-No Restrictions Scheduled Appointment: follow-up Dr. Juan Miguel Copeland and 09/28, patient to get Depakote blood level prior to his appointment Discharge Time > 30 minutes Discharge/Advance Care Plan Health Problems: (1) Bipolar 1 disorder, depressed, moderate Goals to promote your health * To prevent worsening of your condition and complications * To maintain your health at the optimal level Directions to meet your goals Take your medications as prescribed Follow your dietary instruction Follow activity as directed Keep your appointments as scheduled Take your immunizations and boosters as scheduled If your symptoms worsen call your PCP, if no PCP go to Urgent Care Center or Emergency Room For 04/09 questions related to your inpatient stay or results of tests pending at discharge, please contact Dr. Kenroy Longo at Smoking is Dangerous to Your Health. Avoid second hand smoking Kenroy Longo MD Sep 22, 2016 10:23
== END 2016-09-22 13:35 | disposition home or self-care (01) | DRG 885 ==
LOC: H260 19:40
PROVIDERS: ADMIT Psychiatry & Neurology Psychiatry; ATTEND Psychiatry & Neurology Psychiatry
DX: F31.32 Bipolar disorder, current episode depressed, moderate (principal); I10 Essential (primary) hypertension; K21.9 Gastro-esophageal reflux disease without esophagitis; G47.00 Insomnia, unspecified; E03.9 Hypothyroidism, unspecified; L25.9 Unspecified contact dermatitis, unspecified cause
CPT/HCPCS: 80164; 93005; Q0163

== ENCOUNTER → 2017-02-06 | Day surgery (SDC) | payer OTHER ==
[~2017-02-06] VITALS: Ht 161.3 cm; Wt 59.0 kg
[~2017-02-06] MED LIST changes: +ACETAMINOPHEN 1000 MG/100 ML 100 ML IV ONE; +ACETAMINOPHEN 325MG/HYDROcodone 7.5MG/15ML UDC PO PRN; -ASCO100016 PO; +ASCO100029 PO; +BETA0.052 TOPICAL; +CLINDAMYCIN 600 MG/NS PREMIX 50 ML IV SCH; +DEXAMETHASONE SOD PHOS 4 MG/ML VIAL IV ONE; -ERGO1CAP30 PO; +FAMOTIDINE 20 MG/2 ML VIAL ONE; +FLUO-1 PO; +LACTATED RINGER'S 1000 ML INJ 1,000 ML IV SCH; +LACTATED RINGER'S 1000 ML IV PRN; -LEVO88TA2 PO; +LIDOCAINE HCL 1% PF 5 ML AMPULE OTHER ONE; +METOPROLOL TARTRATE 25 MG TAB PO PRN; +MIDAZOLAM HCL 2 MG/2 ML VIAL ONE; +PHENYLEPH/NS 1000 MCG/10 ML SYR IV ONE; +PROPOFOL 200 MG/20 ML AMP IV ONE; +QUET-88 PO; +QUET1TAB7 PO; +SODIUM CHLORID 0.9% 500 ML IV PRN; +SUCCINYLCHOLINE CHLORIDE 100 MG/5 ML SYRINGE IV PUSH ONE; +SYNT88TA PO; +TRAZ100T10 PO; +VITA500012 PO; +ePHEDrine/NS 25 MG/5 ML SYRINGE IV ONE
[2017-02-06 11:45] VITALS: BP 137/81; PULSE 84; RESP 16; TEMP 97.9; O2SAT 100
--- NOTE | 2017-03-05 10:14 | MP ---
cc: TISHA HORTON M.D. DATE OF SURGERY 02/06/[address] Tisha Horton PREOPERATIVE DIAGNOSIS Lesion of left posterior vocal cord. POSTOPERATIVE DIAGNOSIS Lesion of left posterior vocal cord. OPERATION PERFORMED Microlaryngoscopy with removal of vocal cord tumor. INDICATIONS The indications are documented in the history and physical. DESCRIPTION OF OPERATION The patient was taken to OR #2 and placed in the supine position. Following induction of general anesthesia and intubation a shoulder roll and a Byron head drape were put in place. A dental guard was placed and then using the Dedo laryngoscope the hypopharynx and larynx were brought into view. The lesion on the left posterior vocal cord was identified. The patient was then placed in suspension laryngoscopy. The microscope was brought into the field and the lesion of the cord was more clearly visualized and appeared to be a hemangioma or granuloma. The superior half of this lesion was removed as biopsy. The remainder was used using the microlaryngeal Coblator plasma wand on a setting of level 3. The lesion was removed completely. There were no other lesions noted on inspection. The microscope was then removed and the procedure was terminated. The patient was reversed from anesthesia and taken to Recovery in good condition. There were no complications. Blood loss less than 10 mL. MD MIRZA Martinez/KALINA /1:26 PM /10:06 AM
== END | disposition home or self-care (01) ==
LOC: PHSDC 06:10
PROVIDERS: ATTEND Otolaryngology
DX: J38.2 Nodules of vocal cords (principal); I10 Essential (primary) hypertension
CPT/HCPCS: 00320; 31541; 88305; J0131; J0330; J1100; J2250; J2370; J3010; J7120